=== PATIENT | male | born 1950 | race American Indian/Alaskan Native ===

== ENCOUNTER 2023-02-22 11:26 | Emergency (ER) | payer MEDICARE ==
[2023-02-22 11:44] VITALS: BP 122/67; O2SAT 93
[2023-02-22 12:20] LABS: BASOPHIL % 0.9 % (0.0-0.4); Basophil (Absolute #) 0.08 x10^3/uL (0-0.4); Eosinophil % 0.9 % (0.00-5.0); Eosinophil (Absolute #) 0.08 x10^3/uL (0-0.5); Hematocrit 44.2 % (42-50); Hemoglobin 14.5 g/dL (12.5-18.0); IMMATURE GRAN # 0.02 x10^3u/L (0.00-0.03); IMMATURE GRAN % 0.2 % (0.00-0.4); Lymphocyte (Absolute #) 1.34 x10^3/uL (1.0-4.6); Lymphocytes % 14.6 % (24.0-44.0); Mean Cell Volume 89.5 fL (78-100); Mean Corpuscular Hemoglobin 29.4 pg (26-32); Mean Corpuscular Hgb Concent. 32.8 g/dL (32-36); Mean Platelet Volume 10.2 fL (7.5-11.0); Monocyte (Absolute #) 0.47 x10^3/uL (0.0-1.3); Monocytes % 5.1 % (0.0-12.0); Neutrophil % 78.3 % (36.0-66.0); Platelet Count 331 x10^3/uL (150-450); Red Blood Count 4.94 x10^6/uL (4.1-5.6); Red Cell Distribution Width 13.2 % (11.5-14.0); White Blood Count 9.2 x10^3/uL (4.0-10.5)
[2023-02-22 12:37] LABS: ALBUMIN 4.3 g/dL (3.5-5.0); ALKALINE PHOSPHATASE 108 U/L (38-126); BLOOD UREA NITROGEN 31 mg/dL (9-20); CHLORIDE 102 mmol/L (98-107); Calcium 9.1 mg/dL (8.4-10.2); Carbon Dioxide 23 mmol/L (22-30); Creatinine 1 0.82 mg/dL (0.66-1.25); EST GLOMERULAR FILTRATION RATE > 60.0 ML/MIN; Glucose 237 mg/dL (74-106); Potassium 4.2 mmol/L (3.5-5.1); SGOT/AST 25 U/L (17-59); SGPT/ALT 27 U/L (0-50); SODIUM 137 mmol/L (137-145); Total Protein 8.1 g/dL (6.3-8.2)
--- NOTE | 2023-02-22 14:03 | ERPHSYRPT ---
- History of Present Illness Time Seen by Provider: 02/22/23 11:35 Source: patient, therapist rrt Patient Subjective Stated Complaint: Pt reports approx one week ago his big toe on left foot started getting red. Today the toe became really red and started bleeding from an unknown origin. Reports he wants to see if it is infected due to having another toe amputated previously and is diabetic. Triage Nursing Assessment: Pt alert and oriented x3. No apparent respiratory dis tress. Ambulated to ED cot with use of walker. Skin w/p/d. First digit on left toe is puple/red in color, swollen, and has hit of blood on the outer aspect of the nail. Physician History: 73-year-old male insulin-dependent diabetic with left big toe amputations in the past presented in the ER with 1 week history of gradually increasing swelling and redness starting right big toe and now to some extent on the dorsum of foot. This morning he woke up and noticed some blood at the base of big toe nail. Reports fairly controlled blood sugar. No fever or chills reported. Timing/Duration: week(s) (1), gradual onset, worse Quality: burning Severity: mild Location: feet Possible Causes: no cause identified Associated Symptoms: rash, swelling/mass/lumps Allergies/Adverse Reactions: No Known Drug Allergies Allergy (Unverified 02/22/23 11:31) Hx Tetanus, Diphtheria Vaccination/Date Given: Yes Hx Influenza Vaccination/Date Given: Yes Hx Pneumococcal Vaccination/Date Given: Yes Travel Risk - International Travel Have you traveled outside of the country in past 3 weeks: No - Coronavirus Screening Are you exhibiting any of the following symptoms?: No Close contact with a COVID-19 positive Pt in past 14-21 Days: No - Vaccine Status Have you recieved a Covid-19 vaccination: Yes 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 - Vaccination Dates Date of 2cond Vaccination (if applicable): unknown - Review of Systems Constitutional: No Symptoms Eyes: No Symptoms Ears, Nose, & Throat: No Symptoms Respiratory: No Symptoms Cardiac: No Symptoms Musculoskeletal: Joint Redness Skin: Skin Lesions Neurological: No Symptoms Immunological/Allergic: No Symptoms - Past Medical History Pertinent Past Medical History: Yes Neurological History: No Pertinent History ENT History: Cataracts Cardiac History: High Cholesterol, Hypertension Respiratory History: COPD Endocrine Medical History: Diabetes Type II Musculoskeletal History: No Pertinent History GI Medical History: No Pertinent History History: No Pertinent History Psycho-Social History: No Pertinent History Male Reproductive Disorders: No Pertinent History - Past Surgical History Past Surgical History: Yes Musculoskeletal: Amputation, Orthopedic Surgery Other Surgical History: second digit on left foot amputated, left knee, colon cancer surgery, right ear - Social History Smoking Status: Current every day smoker Exposure to second hand smoke: Yes Patient Lives Alone: Yes - Nursing Vital Signs Nursing Vital Signs: Initial Vital Signs Temperature 97.9 F 02/22/23 11:31 Pulse Rate 91 H 02/22/23 11:31 Respiratory Rate 16 02/22/23 11:31 Blood Pressure 122/67 02/22/23 11:31 O2 Sat by Pulse Oximetry 93 L 02/22/23 11:31 Pain Scale Pain Intensity 0 - Physical Exam General Appearance: no apparent distress, alert Eye Exam: PERRL/EOMI Ears, Nose, Throat Exam: normal ENT inspection Neck Exam: normal inspection, non-tender, supple, full range of motion Respiratory Exam: normal breath sounds, lungs clear Cardiovascular Exam: regular rate/rhythm, normal heart sounds Extremity Exam: normal range of motion, inflammation (Right big toe with some swelling on the dorsum of hand and streaking proximally. No increased t emperature. Minimal tenderness.), swelling Neurologic Exam: alert, oriented x 3, cooperative Skin Exam: normal color, rash SpO2 Interpretation: normal SpO2: 93 O2 Delivery: Room Air Ordered Tests: Medication Summary Discontinued Medications Generic Name Dose Route Start Last Admin Trade Name Freq PRN Reason Stop Dose Admin Clindamycin Phosphate 600 mg 02/22/23 14:57 02/22/23 15:09 Clindamycin Phosphate 600 Mg/4 Ml Vial IM 02/22/23 14:58 600 mg STAT ONE Administration Clindamycin Phosphate Confirm 02/22/23 15:07 Clindamycin Phosphate 600 Mg/4 Ml Vial Administered 02/22/23 15:08 Dose 600 mg .ROUTE .STK-MED ONE Clindamycin HCl/Dextrose 900 mg in 50 mls @ 100 mls/hr 02/22/23 14:30 02/22/23 14:59 Clindamycin-D5w 900 Mg/50 Ml IV 02/22/23 14:59 Not Given STAT STA Clindamycin HCl/Dextrose Confirm 02/22/23 15:06 Clindamycin-D5w 600 Mg/50 Ml Administered 02/22/23 15:07 Dose 600 mg in 50 mls @ ud IV .STK-MED ONE Lab/Rad Data: Laboratory Result Diagrams 02/22/23 12:07 02/22/23 12:07 Laboratory Results 02/22/23 02/22/23 02/22/23 Range/Units 12:07 12:07 12:07 WBC 9.2 (4.0-10.5) x10^3/uL RBC 4.94 (4.1-5.6) x10^6/uL Hgb 14.5 (12.5-18.0) g/dL Hct 44.2 (42-50) % MCV 89.5 (78-100) fL MCH 29.4 (26-32) pg MCHC 32.8 (32-36) g/dL RDW 13.2 (11.5-14.0) % Plt Count 331 (150-450) x10^3/uL MPV 10.2 (7.5-11.0) fL Gran % 78.3 H (36.0-66.0) % Immature Gran % (Auto) 0.2 (0.00-0.4) % Nucleat RBC Rel Count 0.0 (0.00-0.1) % Eos # (Auto) 0.08 (0-0.5) x10^3/uL Immature Gran # (Auto) 0.02 (0.00-0.03) x10^3u/L Absolute Lymphs (auto) 1.34 (1.0-4.6) x10^3/uL Absolute Monos (auto) 0.47 (0.0-1.3) x10^3/uL Absolute Nucleated RBC 0.00 (0.00-0.01) x10^3u/L Lymphocytes % 14.6 L (24.0-44.0) % Monocytes % 5.1 (0.0-12.0) % Eosinophils % 0.9 (0.00-5.0) % Basophils % 0.9 (0.0-0.4) % Absolute Granulocytes 7.20 H (1.4-6.9) x10^3/uL Basophils # 0.08 (0-0.4) x10^3/uL Sodium 137 (137-145) mmol/L Potassium 4.2 (3.5-5.1) mmol/L Chloride 102 (98-107) mmol/L Carbon Dioxide 23 (22-30) mmol/L Anion Gap 17.0 H (5-15) MEQ/L BUN 31 H (9-20) mg/dL Creatinine 0.82 (0.66-1.25) mg/dL Estimated GFR > 60.0 ML/MIN Glucose 237 H (74-106) mg/dL Lactic Acid 1.6 (0.4-2.0) Calcium 9.1 (8.4-10.2) mg/dL Total Bilirubin 0.50 (0.2-1.3) mg/dL AST 25 (17-59) U/L ALT 27 (0-50) U/L Alkaline Phosphatase 108 (38-126) U/L Serum Total Protein 8.1 (6.3-8.2) g/dL Albumin 4.3 (3.5-5.0) g/dL - Progress Progress: unchanged Progress Note: 02/22/23 15:28 73-year-old male insulin-dependent diabetic with left big toe amputations in the past presented in the ER with 1 week history of gradually increasing swelling and redness starting right big toe and now to some extent on the dorsum of foot. This morning he woke up and noticed some blood at the base of big toe nail. Reports fairly controlled blood sugar. No fever or chills reported. Differential includes osteomyelitis, diabetic ulcer, cellulitis, fracture dislocation. Patient is not in any pain, has normal white count, fairly unremarkable chemistry, x-rays reviewed by me negative for any osteomyelitic changes, official report is pending. I have discussed with Dr. Nelson, patient is given a dose of parenteral clindamycin and will continue with clindamycin orally to go home as it seems like he is having cellulitis. Patient would be evaluated by Dr. Nelson tomorrow morning. Discussed signs symptoms of worsening needing return to ER which he seems understanding. Stable for discharge. Counseled pt/family regarding: lab results, diagnosis, need for follow-up, rad results Medical Desision Making - Discussion of managment Care discussed with:: specialist (Meat Soaker) Reviewed:: Test results, Need for additional workup Agreed on:: Treatment plan, need for follow-up Will see patient: In office - Diagnostic Testing Diagnostic test were ordered, analyzed, and reviewed by me: Yes Radiological Interpretation: Interpreted by me, Reviewed by me - Risk of complications The pt has a mod risk of morbidity or mortality based on: Need for prescription drug management, Need for minor surgical intervention in patient with know risk factors - Departure Departure Disposition: Home Clinical Impression: Cellulitis of great toe, right Condition: Stable Critical Care Time: No Referrals: DOCTOR,NO FAMILY [Primary Care Provider] - Follow up/PCP as directed ALMA ROSA VAN DPM [ACTIVE STAFF] - Follow up/PCP as directed (Tomorrow at 10 AM for reevaluation. Walking to be seen.) Instructions: Diabetic Foot Ulcer (DC), Cellulitis (Skin Infection), Adult (DC) Additional Instructions: Take Tylenol as needed for pain, use soft diabetic shoes. Follow-up with podiatry for reevaluation tomorrow at [address] [facility]. Return to ER for excruciating pain, worsening swelling, fever chills etc. Prescriptions: clindamycin HCL [Clindamycin HCl] 300 mg PO QID 7 Days #28 cap
[2023-02-22] MEDS ORDERED: CLINDAMYCIN-D5W 900 MG/50 ML*** 900 MG/50 ML BAG IV STA (14:30)
[2023-02-22] MEDS ORDERED: Cleocin Phosphate IV 600 MG/4 ML IM ONE (14:57)
[2023-02-22] MEDS ORDERED: CLINDAMYCIN-D5W 600 MG/50 ML*** 0 MG/0 ML BAG IV ONE (15:06)
[2023-02-22] MEDS ORDERED: Cleocin Phosphate IV 600 MG/4 ML ONE (15:07)
[2023-02-22 15:37] VITALS: PULSE 97
--- NOTE | 2023-02-22 19:43 | XRAY ---
Indication: Diabetic infection. Comparison: None 3 nonweightbearing views right foot demonstrates osteopenia, tiny plantar heel spur, and mild scattered vascular calcifications. No other bony, articular, or soft tissue abnormalities.
== END 2023-02-22 15:39 | disposition home or self-care (01) ==
LOC: ED 11:26
DX: L03.031 Cellulitis of right toe (principal); E11.9 Type 2 diabetes mellitus without complications; E78.5 Hyperlipidemia, unspecified; I10 Essential (primary) hypertension; Z79.4 Long term (current) use of insulin; Z72.0 Tobacco use
CPT/HCPCS: 36415; 73630; 80053; 83605; 85025; 87040; 96372; 99283

== ENCOUNTER 2023-03-23 10:37 | Inpatient (IN) | payer MEDICARE ==
[~2023-03-23 10:37] MED LIST: Marcaine Mpf 0.5% Vial 30 Ml ONE; XYLOCAINE 1% HCL 20 ML MDV ONE
[2023-03-23] MEDS ORDERED: Lactated Ringers 1,000 ML IV ONE (11:41)
[2023-03-23] MEDS ORDERED: Xylocaine 1% Vial 30 ML PF IJ ONE (12:04)
[2023-03-23] MEDS ORDERED: Marcaine Mpf 0.5% Vial 30 Ml ONE (12:04)
[2023-03-23 12:32] LABS: Hematocrit 42.5 % (42-50); Hemoglobin 14.3 g/dL (12.5-18.0); Mean Cell Volume 86.7 fL (78-100); Mean Corpuscular Hemoglobin 29.2 pg (26-32); Mean Corpuscular Hgb Concent. 33.6 g/dL (32-36); Mean Platelet Volume 10.5 fL (7.5-11.0); Platelet Count 341 x10^3/uL (150-450); Red Cell Distribution Width 13.4 % (11.5-14.0); White Blood Count 9.2 x10^3/uL (4.0-10.5)
[2023-03-23 12:49] LABS: ANION GAP 16.8 MEQ/L (5-15); BLOOD UREA NITROGEN 32 mg/dL (9-20); CHLORIDE 100 mmol/L (98-107); Calcium 9.4 mg/dL (8.4-10.2); Carbon Dioxide 27 mmol/L (22-30); EST GLOMERULAR FILTRATION RATE > 60.0 ML/MIN; Glucose 253 mg/dL (74-106); PREALBUMIN 18.22 mg/dL (17.6-36.0); Potassium 4.7 mmol/L (3.5-5.1); SODIUM 139 mmol/L (137-145)
--- NOTE | 2023-03-23 13:31 | XRAY ---
Indication: Right foot hallux amputation. Intraoperative fluoroscopy provided for 4 seconds. 3 digital spot images submitted for interpretation demonstrates total amputation 1st toe. Correlate with intraoperative findings/report.
[2023-03-23] MEDS ORDERED: Zofran 4 MG/2 ML VIAL IV PRN (14:59)
[2023-03-23] MEDS ORDERED: Nicoderm CQ 21 MG TOP SCH (15:45)
[2023-03-23] MEDS ORDERED: MEDICATION INTERVENTION MC SCH (16:00)
[2023-03-23] MEDS ORDERED: NON-FORMULARY ITEM (Insulin Aspart [Novolog] 100 UNIT/ML Vial) SQ SCH (17:00)
[2023-03-23] MEDS: HUMALOG SQ SCH (17:09)
[2023-03-23] MEDS: Nicoderm CQ 21 MG TOP SCH (17:10)
[2023-03-23] MEDS ORDERED: PIPERACILLIN/TAZOBACTAM IV ONE (18:45)
[2023-03-23] MEDS ORDERED: Sodium Chloride 100ML MINI-BAG PLUS 100 ML IV ONE (18:47)
[2023-03-23] MEDS: PIPERACILLIN/TAZOBACTAM 3.375 GM in Sodium Chloride 100ML MINI-BAG PLUS 100 ML IV SCH ×2 (18:49→23:59)
[2023-03-23] MEDS: VENTOLIN COMMON CANISTER IH SCH (19:35)
[2023-03-23] MEDS: Advair Hfa 115/21 Common canister IH SCH (19:35)
[2023-03-23] MEDS: Lantus Insulin SQ SCH (21:26)
[2023-03-23] MEDS: HEPARIN 5000 UNITS/0.5 ML (HIGH RISK MED) SQ SCH (21:27)
[2023-03-23] MEDS: ZOCOR 20MG PO SCH (21:27)
[2023-03-23] MEDS ORDERED: NON-FORMULARY ITEM (Atorvastatin Calcium [Atorvastatin Calcium] 20 MG Tablet) PO SCH (22:00)
--- NOTE | 2023-03-23 23:16 | PCM.HP ---
History of Present Illness - Chief Complaint Chief Complaint: acute osteomyelitis of foot Date: 03/23/23 History of Present Illness: is a 73 year old male with h/o DM2, who presents from podiatry clinic with acute osteomyelitis of the foot. Patient initially presented to to ED last month with one week of redness on first right toe. He has a prior history of left toe amputations due to wounds/infections. Has been following with podiatry Dr. Nelson, on PO antibiotics, but infection has not improved. Had normal right EARLENE. He had an MRI of the foot last week that showed cellulitis with likely distal phalanx and proximal phalax great toe acute osteomyelitis. He has been trying to get in for amputation for the past week, and was approved by insurance over the weekend. He completed oral antibiotics previously, but he does not know when. Patient seen after taken to OR by Dr. Nelson for amputation. No pain currently. Denies fevers, chest pain, dyspnea, nausea, vomiting, or dysuria. - Review of Systems Skin: Cellulitis All Other Systems: Reviewed and Negative Medications & Allergies Home Medications: Home Medication List Albuterol 8 gm Mdi Hfa [Ventolin Hfa MDI] 8 gm IH DAILY 03/18/23 [History Confirmed 03/23/23] Albuterol 8 gm Mdi Hfa [Ventolin Hfa MDI] 8 gm IH DAILY 03/18/23 [History Confirmed 03/23/23] Amlodipine Besylate 5 mg [Norvasc 5 mg] 10 mg PO DAILY 03/18/23 [History Confirmed 03/23/23] Aspirin 81 mg PO DAILY 03/18/23 [History Confirmed 03/23/23] Atorvastatin Calcium 20 mg PO HS 03/18/23 [History Confirmed 03/23/23] Cholecalciferol (Vitamin D3) [Vitamin D] 50,000 unit PO DAILY 03/18/23 [History Confirmed 03/23/23] Empagliflozin [Jardiance] 25 mg PO DAILY 03/18/23 [History Confirmed 03/23/23] Furosemide [Lasix] 10 mg PO DAILY 03/18/23 [History Confirmed 03/23/23] Insulin Aspart [Novolog] 6 unit SQ TIDWMEALS 03/18/23 [History Confirmed 03/23/23] Insulin Glargine,Hum.rec.anlog [Lantus] 18 unit SQ HS 03/18/23 [History Confirmed 03/23/23] Metoprolol Succinate [Toprol Xl] 12.5 mg PO DAILY 03/18/23 [History Confirmed 03/23/23] Tiotropium [place] [Spiriva] 18 mcg IH DAILY 03/18/23 [History Confirmed ] Allergies/Adverse Reactions: Allergies Allergy/AdvReac Type Severity Reaction Status Date / Time No Known Drug Allergies Allergy Unverified 02/22/23 11:31 - Past Medical History Past Medical History: Yes Neurological History: No Pertinent History ENT History: Cataracts Cardiac History: High Cholesterol, Hypertension Respiratory History: COPD Endocrine Medical History: Diabetes Type II Musculoskelatal History: No Pertinent History GI Medical History: No Pertinent History History: No Pertinent History Pyscho-Social History: No Pertinent History Male Reproductive Disorders: No Pertinent History - Past Surgical History Past Surgical History: Yes Neuro Surgical History: No Pertinent History Cardiac History: No Pertinent History Respiratory Surgery: No Pertinent History GI Surgical History: No Pertinent History Genitourinary Surgical Hx: No Pertinent History Musculskeletal Surgical Hx: Amputation, Orthopedic Surgery Male Surgical History: No Pertinent History Other Surgical History: second digit on left foot amputated, left knee, colon cancer surgery, right ear - Social History Smoking Status: Current every day smoker How long have you smoked: 63 Exposure to second hand smoke: Yes Alcohol: Daily Drug Use: none Significant Family History: diabetes - Physical Exam Vital Signs: Vital Signs - 24 hr Temp Pulse Resp BP Pulse Ox 03/23/23 20:01 98.2 F 80 17 150/67 91 L 03/23/23 19:41 82 16 91 L 03/23/23 16:57 80 16 92 L 03/23/23 16:38 97.9 F 79 16 142/65 91 L 03/23/23 13:36 97.8 F 84 16 167/77 92 L 03/23/23 12:16 98.0 F 93 H 16 148/67 92 L 03/23/23 11:22 98.0 F 93 H 16 148/67 92 L 03/23/23 11:08 98.0 F 93 H 16 148/67 92 L 03/23/23 10:55 98.0 F 93 H 16 148/67 92 L General Appearance: no apparent distress, alert Neurologic Exam: alert, oriented x 3, cooperative, normal mood/affect, sensation nml, No motor deficits Respiratory Exam: normal breath sounds, lungs clear, No respiratory distress Cardiovascular Exam: regular rate/rhythm, normal heart sounds, normal peripheral pulses Gastrointestinal/Abdomen Exam: soft, normal bowel sounds, No tenderness Skin Exam: other (right foot in surgical dressing; good cap refill proximally) Wound Assessment: Skin/Wound Assessment Wound/Incision Assessment Start: 03/23/23 11:03 Text: Status: Active Freq: Q4H Protocol: Document 03/23/23 20:00 CRYSTAL (Rec: 03/23/23 20:30 CRYSTAL [id number]) Wound/Incision Assessment Right Toe Wound Assessment Shift Assessment Wound Type Incision Wound Stage Non Pressure Wound Dressing Status Dry & Intact Drainage Amount Minimal Drainage Description Sanguineous Drainage Odor None/Absent Comment RIGHT GREAT TOE AMPUTAITON, DRESSING IS INTACT, SOME BLOODY DRAINAGE NOTED Results - Labs Lab/Micro Results: Lab Results-Last 24 Hours 03/23/23 03/23/23 Range/Units 11:44 11:44 WBC 9.2 (4.0-10.5) x10^3/uL RBC 4.90 (4.1-5.6) x10^6/uL Hgb 14.3 (12.5-18.0) g/dL Hct 42.5 (42-50) % MCV 86.7 (78-100) fL MCH 29.2 (26-32) pg MCHC 33.6 (32-36) g/dL RDW 13.4 (11.5-14.0) % Plt Count 341 (150-450) x10^3/uL MPV 10.5 (7.5-11.0) fL Sodium 139 (137-145) mmol/L Potassium 4.7 (3.5-5.1) mmol/L Chloride 100 (98-107) mmol/L Carbon Dioxide 27 (22-30) mmol/L Anion Gap 16.8 H (5-15) MEQ/L BUN 32 H (9-20) mg/dL Creatinine 0.80 (0.66-1.25) mg/dL Estimated GFR > 60.0 ML/MIN Glucose 253 H (74-106) mg/dL Calcium 9.4 (8.4-10.2) mg/dL Prealbumin 18.22 (17.6-36.0) mg/dL Accuchecks Date 03/23/23 Time 16:37 - Radiology Impressions Radiology Exams & Impressions: Radiology Procedures Category Date Time Status FLUOROSCOPY UP TO 1 HR Routine Exams 03/23/23 11:42 Taken FOOT (MINIMUM 3 VIEWS) Routine Exams 03/23/23 11:42 Completed - Other Procedures and Tests Respiratory Therapy 03/24/23 07:00 Respiratory Therapy Assessment DAILY Assessment/Plan (1) Acute osteomyelitis of toe of right foot Current Visit: Yes Status: Acute Assessment & Plan: Failed outpatient treatment with PO antibiotics, now showing acute osteo on MRI. S/p amputation of 1st great toe by Dr. Nelson - post-op care of wound per Dr. Nelson - start Zosyn IV - follow up operative cultures/pathology - if negative margins, can plan for 1-3 weeks of antibiotics Code(s): M86.171 - OTHER ACUTE OSTEOMYELITIS, RIGHT ANKLE AND FOOT (2) Type 2 diabetes mellitus Current Visit: Yes Status: Acute Qualifiers: Diabetes mellitus complication status: with skin complications Diabetes mellitus complication detail: with foot ulcer Assessment & Plan: HbA1c 8.4 in December. Still poorly controlled. - continue home Lantus 18 HS, Lispro 6 qAC - cover with sliding scale Lispro - continuehome Jardiance 25 daily (3) Hypertension Current Visit: Yes Status: Acute Qualifiers: Hypertension type: primary hypertension Qualified Code(s): I10 - Essential (primary) hypertension Assessment & Plan: BP controlled. - continue Laix, Norvasc 10, Toprol XL 12.5 Code(s): I10 - ESSENTIAL (PRIMARY) HYPERTENSION (4) Nicotine dependence Current Visit: Yes Status: Acute Assessment & Plan: - add nicotine patch Code(s): F17.200 - NICOTINE DEPENDENCE, UNSPECIFIED, UNCOMPLICATED Telemedicine Encounter - Telemedicine Encounter Telemedicine Encounter: The entirety of this encounter was performed via Telemedicine"
[2023-03-24 05:08] LABS: Hematocrit 42.6 % (42-50); Mean Cell Volume 86.8 fL (78-100); Mean Corpuscular Hemoglobin 28.5 pg (26-32); Mean Corpuscular Hgb Concent. 32.9 g/dL (32-36); Mean Platelet Volume 10.5 fL (7.5-11.0); Platelet Count 304 x10^3/uL (150-450); Red Blood Count 4.91 x10^6/uL (4.1-5.6); Red Cell Distribution Width 13.5 % (11.5-14.0); White Blood Count 6.3 x10^3/uL (4.0-10.5)
[2023-03-24 05:19] LABS: ANION GAP 11.1 MEQ/L (5-15); BLOOD UREA NITROGEN 25 mg/dL (9-20); CHLORIDE 104 mmol/L (98-107); Calcium 8.7 mg/dL (8.4-10.2); Carbon Dioxide 29 mmol/L (22-30); Creatinine 1 0.62 mg/dL (0.66-1.25); EST GLOMERULAR FILTRATION RATE > 60.0 ML/MIN; Glucose 104 mg/dL (74-106); Potassium 3.9 mmol/L (3.5-5.1); SODIUM 140 mmol/L (137-145)
[2023-03-24] MEDS: PIPERACILLIN/TAZOBACTAM 3.375 GM in Sodium Chloride 100ML MINI-BAG PLUS 100 ML IV SCH ×4 (05:36→23:05)
[2023-03-24] MEDS ORDERED: Spiriva 18 Mcg/Cap Inhaler IH ONE (06:51)
[2023-03-24] MEDS: VENTOLIN COMMON CANISTER IH SCH ×4 (07:37→19:23)
[2023-03-24] MEDS: Advair Hfa 115/21 Common canister IH SCH ×2 (07:41→19:22)
[2023-03-24] MEDS: Spiriva 18 Mcg/Cap Inhaler IH SCH (07:41)
[2023-03-24] MEDS: HUMALOG SQ SCH ×3 (08:06→17:41)
[2023-03-24] MEDS ORDERED: Toprol-Xl 25MG Tablets PO SCH (10:00)
[2023-03-24] MEDS ORDERED: NON-FORMULARY ITEM (Cholecalciferol (Vitamin D3) [Vitamin D3] 1,250 MCG Capsule) PO SCH (10:00)
[2023-03-24] MEDS ORDERED: BABY ASPIRIN 81 MG CHEW PO SCH (10:00)
[2023-03-24] MEDS ORDERED: MEDICATION INTERVENTION PO SCH (10:00)
[2023-03-24] MEDS: LASIX 20 MG PO SCH (10:30)
[2023-03-24] MEDS: ECOTRIN 81 MG PO SCH (10:31)
[2023-03-24] MEDS: Toprol-Xl 25MG Tablets PO SCH (10:31)
[2023-03-24] MEDS: NORVASC 5 MG PO SCH (10:31)
[2023-03-24] MEDS: HEPARIN 5000 UNITS/0.5 ML (HIGH RISK MED) SQ SCH ×2 (10:31→23:05)
[2023-03-24] MEDS: JARDIANCE PO SCH (10:32)
--- NOTE | 2023-03-24 10:37 | XRAY ---
4 seconds of fluoroscopy was used in surgery for a right foot hallux amputation.
--- NOTE | 2023-03-24 11:40 | OP ---
SURGERY DATE/TIME: 03/23/2023 1249 PREOPERATIVE DIAGNOSES: 1) Osteomyelitis right hallux. 2) Diabetic foot ulcer. 3) Diabetic peripheral neuropathy. 4) Right foot pain. POSTOPERATIVE DIAGNOSES: 1) Osteomyelitis right hallux. 2) Diabetic foot ulcer. 3) Diabetic peripheral neuropathy. 4) Right foot pain. PROCEDURES: Open amputation right hallux at the level of the metatarsophalangeal joint. SURGEON: Omar Loco DPM. GROCERY SPECIALIST: None. ANESTHESIA: Local. HEMOSTASIS: Pressure dressing. ESTIMATED BLOOD LOSS: Less than 10 cc. MATERIALS: 3-0 Nylon, 0.25 inch Iodoform packing. INJECTABLES: 30 cc of 1:1 mixture of 1% lidocaine plain and 0.5% bupivacaine plain injected in a Pan block-type fashion to the right lower extremity. INDICATION FOR SURGERY: William is a very pleasant 73-year-old male who is known to my service for an infected toenail that started approximately six weeks ago. The patient had a concern because he has had an amputation to his second digit on his left foot because of osteomyelitis in the past. Secondary to his peripheral neuropathy we proceeded with removal of the hallux toenail at that time which showed minor signs of improvement over the course of the first week however clinical worsening of the wound. Cultures were taken demonstrating bacterial growth. After the four week aziza he demonstrated some indications of exposure of the bone from the soft tissue with deterioration of the wound. This led us to proceed with MRI which demonstrated some osteomyelitis of the distal and to a lesser extent proximal phalanx. At this time the patient understands all risks, benefits and complications of surgical intervention including but not limited to infection, hematoma, seroma, possibility of delayed wound healing, nonwound healing, possibility of need for repeat intervention as this is a staged procedure. No guarantees were provided as to the outcome for surgical intervention at this time. Plenty of time was allowed for the patient to ask questions which were answered to her apparent satisfaction. It is with that we decided to proceed. DESCRIPTION OF PROCEDURE AND FINDINGS: The patient was brought into the OR and placed on the OR table in the supine position. At this time the right foot was prepped and draped in the typical sterile fashion and lowered onto the surgical field. An injection consisting of 30 cc of 1:1 mixture of 1% lidocaine plain and 0.5% bupivacaine plain was injected in a Pan block-type fashion. Following this, a medial racket incision was made utilizing a 10 blade over the hallux circumferentially saving as much skin as possible. From that standpoint, a disarticulation took place utilizing a 15 blade at the deep level. 3,000 ml of sterile saline were utilized to flush the surgical site until no longer any soft tissue purulence was encountered. From that standpoint gloves were changed and a Pan stand was brought out. A new 15 blade and pickup were utilized to remove the flexor tendon as well as soft tissue of the flexor apparatus. Following this, 3-0 Nylon was utilized in a trauma stitch-type fashion to the right great toe leaving the distal tip open for 0.25 inch Iodoform packing which was soaked in iodine. From that standpoint a dressing consisting of iodine, Adaptic, 4x4, Kerlix, ABD and VICTOR MANUEL were applied to the right foot with minimal compression. The patient was then returned to his room with vital signs stable and vascular status intact. The patient handled the anesthesia as well as the procedure without significant complication. Postoperative orders as indicated in the patient's inpatient chart.
[2023-03-24] MEDS: HUMALOG SQ PRN (12:06)
--- NOTE | 2023-03-24 13:10 | PCM.NOTE ---
Date and Time: 03/24/23 1301 Subjective Assessment: No acute events overnight. Has some foot pain, but doesn't want to take any pain meds. Tried to put his foot down last night and noted some blood running down his leg, but has not put any weight since then, and has not seen any other drainage. States Dr. St planning to go back to OR to close wound. He denies fevers, chills, malaise, or anorexia. - Review of Systems All Other Systems: Reviewed and Negative Objective Exam General Appearance: no apparent distress Neurologic Exam: alert, oriented x 3, normal mood/affect Skin Exam: other (dressing to R foot wound clean/dry/intact) Wound Assessment: Skin/Wound Assessment Wound/Incision Assessment Start: 03/23/23 11:03 Text: Status: Active Freq: Q6H Protocol: Document 03/24/23 08:00 [facility] (Rec: 03/24/23 10:09 [facility] [id number]) Co-Sign 03/24/23 08:00 TJ Wound/Incision Assessment Right Toe Wound Assessment Shift Assessment Wound Type Incision Wound Stage Non Pressure Wound Dressing Status Dry & Intact Drainage Amount None Comment DRESSINGS CLEAN, DRY, AND INTACT. PER DR. ST DRESSINGS NOT TO BE REMOVED, DRESSING CARE MANAGED AND CHANGED BY DR. ST ONLY. Wound Photo Photo Taken No Respiratory Exam: normal breath sounds, No accessory muscle use Cardiovascular Exam: regular rate/rhythm, No murmur Gastrointestinal/Abdomen Exam: soft, No tenderness, No distention OBJECTIVE DATA Vital Signs: Vital Signs - 24 hr Temp Pulse Resp BP Pulse Ox 03/24/23 12:00 18 03/24/23 11:43 98.7 F 76 17 140/70 93 L 03/24/23 11:18 86 16 95 03/24/23 09:00 97.5 F 87 17 117/85 95 03/24/23 08:00 17 03/24/23 07:00 75 16 94 L 03/24/23 04:23 97.7 F 75 16 140/73 94 L 03/24/23 00:14 98.2 F 81 16 153/71 90 L 03/23/23 20:01 98.2 F 80 17 150/67 91 L 03/23/23 19:41 82 16 91 L 03/23/23 16:57 80 16 92 L 03/23/23 16:38 97.9 F 79 16 142/65 91 L 03/23/23 13:36 97.8 F 84 16 167/77 92 L Pain Assessment - Last Documented Pain Intensity 0 Intake and Output: Intake & Output 03/22/23 03/23/23 03/24/23 03/25/23 11:59 11:59 11:59 11:59 Intake Total 720 Output Total 2150 Balance -1430 Weight 78.9 kg 78.9 kg Lab Results: Lab Results-Last 24 Hours 03/24/23 03/24/23 Range/Units 04:15 04:15 WBC 6.3 (4.0-10.5) x10^3/uL RBC 4.91 (4.1-5.6) x10^6/uL Hgb 14.0 (12.5-18.0) g/dL Hct 42.6 (42-50) % MCV 86.8 (78-100) fL MCH 28.5 (26-32) pg MCHC 32.9 (32-36) g/dL RDW 13.5 (11.5-14.0) % Plt Count 304 (150-450) x10^3/uL MPV 10.5 (7.5-11.0) fL Sodium 140 (137-145) mmol/L Potassium 3.9 (3.5-5.1) mmol/L Chloride 104 (98-107) mmol/L Carbon Dioxide 29 (22-30) mmol/L Anion Gap 11.1 (5-15) MEQ/L BUN 25 H (9-20) mg/dL Creatinine 0.62 L (0.66-1.25) mg/dL Estimated GFR > 60.0 ML/MIN Glucose 104 (74-106) mg/dL Calcium 8.7 (8.4-10.2) mg/dL Radiology Exams: Radiology Procedures Category Date Time Status FLUOROSCOPY UP TO 1 HR Routine Exams 03/23/23 11:42 Completed FOOT (MINIMUM 3 VIEWS) Routine Exams 03/23/23 11:42 Completed Assessment/Plan (1) Acute osteomyelitis of toe of right foot Current Visit: Yes Status: Acute Assessment & Plan: 3 year old male with h/o DM2 and recurrent diabetic foot infections/amputations, here with right first toe acute osteomyelitis, now s/p amputation. ## Acute osteomyelitis of right 1st toe - See in distal phalax, and somewhat in proximal phalanx, on MRI last week. S/p ray amputation by Dr. St on 03/23 (POD #1). - continue Zosyn, day 2 - follow up operative cultures/pathology - if negative margins, will plan for 1-3 weeks of antibiotics - return to OR for closure, likely on ; per Dr. St ## DM2 - poorly controlled, with HbA1c 8.4 in December. But glucose levels contro lled here. - continue home Lantus 18 HS, Lispro 6 qAC - cover with sliding scale Lispro - continuehome Jardiance 25 daily ## Hypertension - BP controlled. - continue Lasix, Norvasc 10, Toprol XL 12.5 ## Nicotine dependence - continue nicotine patch Code status: Full code Prophylaxis: holding lovenox due to OR plans Entirety of encounter took place via telemedicine, to which patient consented. Code(s): M86.171 - OTHER ACUTE OSTEOMYELITIS, RIGHT ANKLE AND FOOT (2) Type 2 diabetes mellitus Current Visit: Yes Status: Acute Qualifiers: Diabetes mellitus complication status: with skin complications Diabetes mellitus complication detail: with foot ulcer (3) Hypertension Current Visit: Yes Status: Acute Qualifiers: Hypertension type: primary hypertension Qualified Code(s): I10 - Essential (primary) hypertension Code(s): I10 - ESSENTIAL (PRIMARY) HYPERTENSION (4) Nicotine dependence Current Visit: Yes Status: Acute Code(s): F17.200 - NICOTINE DEPENDENCE, UNSPECIFIED, UNCOMPLICATED
--- NOTE | 2023-03-24 13:37 | PCM.NOTE ---
Date and Time: 03/24/23 1326 Subjective Assessment: POD #1 s/p open hallux amputation to the right. No complaints of pain. No constitutional symptoms. Denies chest pain, Calf pain, SOB. Physical Exam - General General Appearance: no apparent distress - Neuro Neurologic: Epicritic and protopathic (Absent) - Vascular Peripheral Pulses: Posterior tibialis: 1+, Dorsalis-Pedis: 2+ Capillary Refill Time: < 3 seconds Hair Growth: Symmetrical and Bilateral Varicosities: Negtive Edema: Pitting Edema Degree: 1+ Skin: Supple, not atrophic - Narrative Narrative Physical Exam: Podiatry Physical Exam OBJECTIVE DATA Vital Signs: Vital Signs - 24 hr Temp Pulse Resp BP Pulse Ox 03/24/23 12:00 18 03/24/23 11:43 98.7 F 76 17 140/70 93 L 03/24/23 11:18 86 16 95 03/24/23 09:00 97.5 F 87 17 117/85 95 03/24/23 08:00 17 03/24/23 07:00 75 16 94 L 03/24/23 04:23 97.7 F 75 16 140/73 94 L 03/24/23 00:14 98.2 F 81 16 153/71 90 L 03/23/23 20:01 98.2 F 80 17 150/67 91 L 03/23/23 19:41 82 16 91 L 03/23/23 16:57 80 16 92 L 03/23/23 16:38 97.9 F 79 16 142/65 91 L 03/23/23 13:36 97.8 F 84 16 167/77 92 L Pain Assessment - Last Documented Pain Intensity 0 Intake and Output: Intake & Output 03/22/23 03/23/23 03/24/23 03/25/23 11:59 11:59 11:59 11:59 Intake Total 720 240 Output Total 2150 475 Balance -1430 -235 Weight 78.9 kg 78.9 kg Lab Results: Lab Results-Last 24 Hours 03/24/23 03/24/23 Range/Units 04:15 04:15 WBC 6.3 (4.0-10.5) x10^3/uL RBC 4.91 (4.1-5.6) x10^6/uL Hgb 14.0 (12.5-18.0) g/dL Hct 42.6 (42-50) % MCV 86.8 (78-100) fL MCH 28.5 (26-32) pg MCHC 32.9 (32-36) g/dL RDW 13.5 (11.5-14.0) % Plt Count 304 (150-450) x10^3/uL MPV 10.5 (7.5-11.0) fL Sodium 140 (137-145) mmol/L Potassium 3.9 (3.5-5.1) mmol/L Chloride 104 (98-107) mmol/L Carbon Dioxide 29 (22-30) mmol/L Anion Gap 11.1 (5-15) MEQ/L BUN 25 H (9-20) mg/dL Creatinine 0.62 L (0.66-1.25) mg/dL Estimated GFR > 60.0 ML/MIN Glucose 104 (74-106) mg/dL Calcium 8.7 (8.4-10.2) mg/dL Radiology Exams: Radiology Procedures Category Date Time Status FLUOROSCOPY UP TO 1 HR Routine Exams 03/23/23 11:42 Completed FOOT (MINIMUM 3 VIEWS) Routine Exams 03/23/23 11:42 Completed Assessment/Plan (1) Peripheral neuropathy Current Visit: Yes Status: Acute Code(s): G62.9 - POLYNEUROPATHY, UNSPECIFIED (2) Cellulitis of great toe, right Current Visit: No Status: Acute Code(s): L03.031 - CELLULITIS OF RIGHT TOE (3) Acute osteomyelitis of toe of right foot Current Visit: Yes Status: Acute Assessment & Plan: POD #1 s/p Hallux open amputation Patient progressing without complication at this time Radiographs demonstrating interval amputation of hallux to level of MPJ. No soft tissue emphysema. Packing pulled and wound assessed demonstrating no clinical appearance of residual infection at this time. Some minimal necrosis of wound margins. Repacked using 1/4 inch iodoform packing, Dressing consisting of Iodine adpatic 4x4 kerlik abd and VICTOR MANUEL with minimal to moderate compression Continue IV abx at this time. Soft tissue and osseous cultures obtained. Awaiting results. Vanco/zosyn combo for now. Will likely d/c on Oral abx. No PICC line placement recommended. Pain control DVT prophylaxis Plan for D/c to home with home health care for dressing changes 2x a week with office visits with us 1x weekly Back to OR Thursday for DPC. Ok for D/c once closure preformed. Code(s): M86.171 - OTHER ACUTE OSTEOMYELITIS, RIGHT ANKLE AND FOOT (4) Type 2 diabetes mellitus Current Visit: Yes Status: Acute Qualifiers: Diabetes mellitus complication status: with skin complications Diabetes mellitus complication detail: with foot ulcer (5) Nicotine dependence Current Visit: Yes Status: Acute Code(s): F17.200 - NICOTINE DEPENDENCE, UNSPECIFIED, UNCOMPLICATED
[2023-03-24] MEDS ORDERED: Nicoderm CQ 21 MG TOP SCH (16:00)
[2023-03-24] MEDS: Nicoderm CQ 21 MG TOP SCH (17:42)
[2023-03-24] MEDS: ZOCOR 20MG PO SCH (23:05)
[2023-03-24] MEDS: Lantus Insulin SQ SCH (23:06)
[2023-03-25] MEDS: NORCO 5/325 MG PO PRN ×4 (02:23→21:32)
[2023-03-25] MEDS: TYLENOL 325 MG PO PRN ×2 (03:12→18:45)
[2023-03-25] MEDS: PIPERACILLIN/TAZOBACTAM 3.375 GM in Sodium Chloride 100ML MINI-BAG PLUS 100 ML IV SCH ×3 (05:40→18:45)
[2023-03-25] MEDS: VENTOLIN COMMON CANISTER IH SCH ×4 (05:46→19:05)
[2023-03-25] MEDS: Advair Hfa 115/21 Common canister IH SCH ×2 (05:47→19:06)
[2023-03-25] MEDS: Spiriva 18 Mcg/Cap Inhaler IH SCH (05:47)
[2023-03-25] MEDS: HUMALOG SQ SCH ×3 (08:17→16:45)
[2023-03-25] MEDS: Toprol-Xl 25MG Tablets PO SCH (09:43)
[2023-03-25] MEDS: NORVASC 5 MG PO SCH (09:44)
[2023-03-25] MEDS: JARDIANCE PO SCH (09:44)
[2023-03-25] MEDS: ECOTRIN 81 MG PO SCH (09:44)
[2023-03-25] MEDS: LASIX 20 MG PO SCH (09:44)
[2023-03-25] MEDS: HEPARIN 5000 UNITS/0.5 ML (HIGH RISK MED) SQ SCH ×2 (09:44→21:32)
[2023-03-25] MEDS: Nicoderm CQ 21 MG TOP SCH (16:44)
--- NOTE | 2023-03-25 17:01 | PCM.NOTE ---
Date and Time: 03/25/23 1700 Subjective Assessment: POD # 2. Doing well. Increased Pain however dopplerable pulses at bedside. Physical Exam - Narrative Narrative Physical Exam: Podiatry Physical Exam OBJECTIVE DATA Vital Signs: Vital Signs - 24 hr Temp Pulse Resp BP Pulse Ox 03/25/23 16:22 74 18 92 L 03/25/23 16:00 98.3 F 83 17 145/74 92 L 03/25/23 13:09 72 18 90 L 03/25/23 12:00 18 03/25/23 11:56 98.2 F 76 16 141/79 93 L 03/25/23 08:00 18 03/25/23 07:16 97.2 F 81 16 133/63 92 L 03/25/23 05:47 78 20 95 03/25/23 04:00 97.5 F 76 20 138/72 92 L 03/25/23 00:00 20 03/24/23 23:59 97.8 F 77 20 141/65 96 03/24/23 20:00 99.3 F 77 20 162/77 93 L 03/24/23 19:23 62 20 97 Pain Assessment - Last Documented Pain Intensity 8 Pain Scale Used 0-10 Pain Scale Intake and Output: Intake & Output 03/23/23 03/24/23 03/25/23 03/26/23 11:59 11:59 11:59 11:59 Intake Total 720 1720 240 Output Total 2150 2075 300 Balance -1430 -355 -60 Weight 78.9 kg 78.9 kg 78.9 kg Multi-Disciplinary Progress Notes: Multi-Disciplinary Progress Notes 03/25/23 13:41 Case Management Note by Liz Garcia [facility] HAS BEEN SET UP. THEY WILL NEED NOTIFIED AT TIME OF DC AT [phone]. THEY WILL NEED FAXED THE DC INSTRUCTIONS, DC MED LIST AND DC SUMMARY ( IF AVAILABLE) TO [phone] Initialized on 03/25/23 13:41 - END OF NOTE 03/25/23 13:27 Case Management Note by Liz Garcia Addendum entered by Liz Garcia 03/25/23 13:41: NOTE FOR 1230 Original Note: S/W JEANINE- DRESSING CHANGE ORDERS CLARIFIED. DRESSING TO REMAIN IN PLACE UNTIL FOLLOW UP THEN PODIATRY WILL SEND ORDERS TO [facility]. WILL SEND UPDATED ORDER TO FR[facility] Initialized on 03/25/23 13:27 - END OF NOTE 03/25/23 13:23 Case Management Note by Liz Garcia Addendum entered by Liz Garcia 03/25/23 13:41: UPDATED ORDERS SENT AT THIS TIME Original Note: S/W PATIENT ABOUT SETTING UP HHC FOR DRESSING CHANGES. PATIENT AGREEABLE BUT ONLY IF IT DOESN'T COST HIM ANYTHING. PATIENT REPORTS THIS IS THE ONLY WAY HE WILL AGREE TO ANYTHING. I TRIED TO DISCUSS OPTIONS IF THERE WOULD BE A COPAY. PATIENT REPORTS HIS SISTER COULD DO HIS DRESSING CHANGES. I STATED THIS OPTION WOULD NEED TO BE DISCUSSED WITH DR. ST- PATIENT REPLIED "I DON'T HAVE TO TALK TO DR. ST ABOUT ANYTHING" REFERRAL SENT TO FRANC[facility]- S/W STEFANIE- SHE REPORTS THEY ARE IN NETWORK WITH INSURANCE. THEY HAVE ACCEPTED AND REPORT THERE WILL BE $0 COPAY FOR PATIENT. THEY WERE UPDATED THAT NEW ORDERS WILL BE SENT PATIENTS DRESSING NEEDS TO BE LEFT INTACT UNTIL HIS FOLLOW UP NEXT WEEK THEN PODIATRY WOULD SEND IN ORDER FOR DRESSING CHANGE ORDERS. SHE VERIFIED UNDERSTANDING. Initialized on 03/25/23 13:23 - END OF NOTE Assessment/Plan (1) Peripheral neuropathy Current Visit: Yes Status: Acute Assessment & Plan: POD #2 s/p Hallux open amputation Patient progressing without complication at this time Radiographs demonstrating interval amputation of hallux to level of MPJ. No soft tissue emphysema. Packing pulled and wound assessed demonstrating no clinical appearance of residual infection at this time. Some minimal however increasing indications of necrosis of wound margins. Dopplerable pulses as biphasic and triphasic respectively to the left DP and PT. Packing discontinued- Dressing consisting of Iodine adpatic 4x4 kerlik abd and VICTOR MANUEL with minimal to moderate compression Continue IV abx at this time. Soft tissue and osseous cultures obtained. Awaiting results. Vanco/zosyn combo for now. Will likely d/c on Oral abx. No PICC line placement recommended. Pain control DVT prophylaxis Plan for D/c to home with home health care for dressing changes 2x a week with office visits with us 1x weekly- Patient states Sister can do dressing changes. I am amenable to this instead of HHC if reliable. Back to OR Thursday for DPC. Ok for D/c once closure preformed. Code(s): G62.9 - POLYNEUROPATHY, UNSPECIFIED (2) Cellulitis of great toe, right Current Visit: No Status: Acute Code(s): L03.031 - CELLULITIS OF RIGHT TOE (3) Acute osteomyelitis of toe of right foot Current Visit: Yes Status: Acute Code(s): M86.171 - OTHER ACUTE OSTEOMYELITIS, RIGHT ANKLE AND FOOT (4) Type 2 diabetes mellitus Current Visit: Yes Status: Acute (5) Nicotine dependence Current Visit: Yes Status: Acute Code(s): F17.200 - NICOTINE DEPENDENCE, U NSPECIFIED, UNCOMPLICATED
--- NOTE | 2023-03-25 17:04 | PCM.NOTE ---
Date and Time: 03/25/231658 Subjective Assessment: No acute events overnight. No pain in his foot. No further drainage. Patient reports that he spoke to Dr. Loco, and planning on taking back to the OR tomorrow for closure. - Review of Systems All Other Systems: Reviewed and Negative Objective Exam General Appearance: no apparent distress Neurologic Exam: alert, oriented x 3, normal mood/affect Skin Exam: other (Dressing to right foot wound is clean, dry, and intact) Wound Assessment: Skin/Wound Assessment Wound/Incision Assessment Start: 03/23/23 11:03 Text: Status: Active Freq: Q6H Protocol: Document 03/25/23 14:00 EK (Rec: 03/25/23 15:30 EK [id number]) Wound/Incision Assessment Right Toe Wound Assessment Shift Assessment Wound Type Incision Wound Stage Non Pressure Wound Dressing Status Dry & Intact Drainage Amount None Comment DRESSING CHANGED TODAY- PACKING REMOVED. C/D/I AT THIS TIME Respiratory Exam: normal breath sounds, lungs clear, No respiratory distress Cardiovascular Exam: regular rate/rhythm, No murmur Gastrointestinal/Abdomen Exam: soft, No tenderness, No distention OBJECTIVE DATA Vital Signs: Vital Signs - 24 hr Temp Pulse Resp BP Pulse Ox 03/25/23 16:22 74 18 92 L 03/25/23 16:00 98.3 F 83 17 145/74 92 L 03/25/23 13:09 72 18 90 L 03/25/23 12:00 18 03/25/23 11:56 98.2 F 76 16 141/79 93 L 03/25/23 08:00 18 03/25/23 07:16 97.2 F 81 16 133/63 92 L 03/25/23 05:47 78 20 95 03/25/23 04:00 97.5 F 76 20 138/72 92 L 03/25/23 00:00 20 03/24/23 23:59 97.8 F 77 20 141/65 96 03/24/23 20:00 99.3 F 77 20 162/77 93 L 03/24/23 19:23 62 20 97 Pain Assessment - Last Documented Pain Intensity 8 Pain Scale Used 0-10 Pain Scale Intake and Output: Intake & Output 03/23/23 03/24/23 03/25/23 03/26/23 11:59 11:59 11:59 11:59 Intake Total 720 1720 240 Output Total 5986 6827 300 Balance -1430 -355 -60 Weight 78.9 kg 78.9 kg 78.9 kg Multi-Disciplinary Progress Notes: Multi-Disciplinary Progress Notes 03/25/23 13:41 Case Management Note by Liz Garcia [facility] HAS BEEN SET UP. THEY WILL NEED NOTIFIED AT TIME OF DC AT [phone]. THEY WILL NEED FAXED THE DC INSTRUCTIONS, DC MED LIST AND DC SUMMARY ( IF AVAILABLE) TO [phone] Initialized on 03/25/23 13:41 - END OF NOTE 03/25/23 13:27 Case Management Note by Liz Garcia Addendum entered by Liz Garcia 03/25/23 13:41: NOTE FOR 1230 Original Note: S/W JEANINE- DRESSING CHANGE ORDERS CLARIFIED. DRESSING TO REMAIN IN PLACE UNTIL FOLLOW UP THEN PODIATRY WILL SEND ORDERS TO [facility]. WILL SEND UPDATED ORDER TO FRANCINE Initialized on 03/25/23 13:27 - END OF NOTE 03/25/23 13:23 Case Management Note by Liz Garcia Addendum entered by Liz Garcia 03/25/23 13:41: UPDATED ORDERS SENT AT THIS TIME Original Note: S/W PATIENT ABOUT SETTING UP [facility] FOR DRESSING CHANGES. PATIENT AGREEABLE BUT ONLY IF IT DOESN'T COST HIM ANYTHING. PATIENT REPORTS THIS IS THE ONLY WAY HE WILL AGREE TO ANYTHING. I TRIED TO DISCUSS OPTIONS IF THERE WOULD BE A COPAY. PATIENT REPORTS HIS SISTER COULD DO HIS DRESSING CHANGES. I STATED THIS OPTION WOULD NEED TO BE DISCUSSED WITH DR. ST- PATIENT REPLIED "I DON'T HAVE TO TALK TO DR. ST ABOUT ANYTHING" REFERRAL SENT TO [facility]- S/W STEFANIE- SHE REPORTS THEY ARE IN NETWORK WITH INSURANCE. THEY HAVE ACCEPTED AND REPORT THERE WILL BE $0 COPAY FOR PATIENT. THEY WERE UPDATED THAT NEW ORDERS WILL BE SENT PATIENTS DRESSING NEEDS TO BE LEFT INTACT UNTIL HIS FOLLOW UP NEXT WEEK THEN PODIATRY WOULD SEND IN ORDER FOR DRESSING CHANGE ORDERS. SHE VERIFIED UNDERSTANDING. Initialized on 03/25/23 13:23 - END OF NOTE Assessment/Plan (1) Acute osteomyelitis of toe of right foot Current Visit: Yes Status: Acute Assessment & Plan: 73 year old male with h/o DM2 and recurrent diabetic foot infections/amputations, here with right first toe acute osteomyelitis, now s/p amputation. ## Acute osteomyelitis of right 1st toe - See in distal phalax, and somewhat in proximal phalanx, on MRI last week. S/p ray amputation by Dr. St on 03/23 (POD #2). - continue Zosyn, day 3 - follow up operative cultures/pathology Likely plan for 1 to 2 weeks of oral antibiotics after closure tomorrow - return to OR for closure, likely on ; per Dr. Loco ## DM2 - poorly controlled, with HbA1c 8.4 in December. But glucose levels controlled here. - continue home Lantus 18 HS, Lispro 6 qAC - cover with sliding scale Lispro - continuehome Jardiance 25 daily ## Hypertension - BP controlled. - continue Lasix, Norvasc 10, Toprol XL 12.5 ## Nicotine dependence - continue nicotine patch Code status: Full code Prophylaxis: holding lovenox due to surgery tomorrow Dispo: Likely home tomorrow after surgical closure of wound. Will do home health wound care, and follow up with Dr. Loco. Entirety of encounter took place via telemedicine, to which patient consented. Code(s): M86.171 - OTHER ACUTE OSTEOMYELITIS, RIGHT ANKLE AND FOOT (2) Type 2 diabetes mellitus Current Visit: Yes Status: Acute Qualifiers: Diabetes mellitus complication status: with skin complications Diabetes mellitus complication detail: with foot ulcer (3) Hypertension Current Visit: Yes Status: Acute Qualifiers: Hypertension type: primary hypertension Qualified Code(s): I10 - Essential (primary) hypertension Code(s): I10 - ESSENTIAL (PRIMARY) HYPERTENSION (4) Nicotine dependence Current Visit: Yes Status: Acute Code(s): F17.200 - NICOTINE DEPENDENCE, UNSPECIFIED, UNCOMPLICATED
[2023-03-25] MEDS: ZOCOR 20MG PO SCH (21:32)
[2023-03-25] MEDS: Lantus Insulin SQ SCH (21:40)
[2023-03-26] MEDS: PIPERACILLIN/TAZOBACTAM 3.375 GM in Sodium Chloride 100ML MINI-BAG PLUS 100 ML IV SCH ×5 (00:10→23:35)
[2023-03-26] MEDS: NORCO 5/325 MG PO PRN ×4 (04:14→22:37)
[2023-03-26] MEDS: VENTOLIN COMMON CANISTER IH SCH ×4 (05:46→19:30)
[2023-03-26] MEDS: Spiriva 18 Mcg/Cap Inhaler IH SCH (05:47)
[2023-03-26] MEDS: Advair Hfa 115/21 Common canister IH SCH ×2 (05:47→19:30)
[2023-03-26] MEDS: HUMALOG SQ SCH ×3 (08:13→17:09)
[2023-03-26] MEDS: NORVASC 5 MG PO SCH (09:18)
[2023-03-26] MEDS: ECOTRIN 81 MG PO SCH (09:19)
[2023-03-26] MEDS: Toprol-Xl 25MG Tablets PO SCH (09:19)
[2023-03-26] MEDS: HEPARIN 5000 UNITS/0.5 ML (HIGH RISK MED) SQ SCH ×2 (09:19→23:40)
[2023-03-26] MEDS: LASIX 20 MG PO SCH (09:19)
[2023-03-26] MEDS: JARDIANCE PO SCH (09:47)
[2023-03-26] MEDS: HUMALOG SQ PRN (12:04)
--- NOTE | 2023-03-26 12:16 | PCM.NOTE ---
Date and Time: 03/26/23 1211 Subjective Assessment: No acute events overnight. Dr. Loco unable to take to the OR today as no availability in the schedule. Patient disappointed, but understands the plan. He still has some pain in his right foot, but no discharge noted. He states plan is for his sister to help him with wound care when he goes home. - Review of Systems All Other Systems: Reviewed and Negative Objective Exam General Appearance: no apparent distress Neurologic Exam: alert, oriented x 3 Skin Exam: other (Right foot dressing clean dry and intact) Wound Assessment: Skin/Wound Assessment Wound/Incision Assessment Start: 03/23/23 11:03 Text: Status: Active Freq: Q6H Protocol: Document 03/26/23 08:00 AR (Rec: 03/26/23 09:38 AR [id number]) Wound/Incision Assessment Right Toe Wound Assessment Shift Assessment Wound Type Incision Wound Stage Non Pressure Wound Dressing Status Dry & Intact Drainage Amount None Wound Photo Photo Taken No Respiratory Exam: normal breath sounds, lungs clear, No respiratory distress Cardiovascular Exam: regular rate/rhythm, No murmur, No edema OBJECTIVE DATA Vital Signs: Vital Signs - 24 hr Temp Pulse Resp BP Pulse Ox 03/26/23 11:37 98.9 F 84 16 147/70 90 L 03/26/23 10:35 94 H 16 94 L 03/26/23 07:13 98.8 F 69 17 102/59 93 L 03/26/23 05:47 81 18 92 L 03/26/23 04:00 98.5 F 84 22 157/76 96 03/26/23 00:00 97.8 F 82 20 162/77 94 L 03/25/23 20:00 98.0 F 93 H 20 116/59 93 L 03/25/23 19:05 93 H 18 93 L 03/25/23 16:22 74 18 92 L 03/25/23 16:00 98.3 F 83 18 145/74 92 L 03/25/23 13:09 72 18 90 L Pain Assessment - Last Documented Pain Intensity 8 Pain Scale Used 0-10 Pain Scale Intake and Output: Intake & Output 03/24/23 03/25/23 03/26/23 03/27/23 11:59 11:59 11:59 11:59 Intake Total 720 1720 1740 Output Total 2150 2075 1850 Balance -1430 -355 -110 Weight 78.9 kg 78.9 kg Multi-Disciplinary Progress Notes: Multi-Disciplinary Progress Notes 03/25/23 13:41 Case Management Note by Liz Garcia [facility] HAS BEEN SET UP. THEY WILL NEED NOTIFIED AT TIME OF DC AT [phone]. THEY WILL NEED FAXED THE DC INSTRUCTIONS, DC MED LIST AND DC SUMMARY ( IF AVAILABLE) TO [phone] Initialized on 03/25/23 13:41 - END OF NOTE 03/25/23 13:27 Case Management Note by Liz Garcia Addendum entered by Liz Garcia 03/25/23 13:41: NOTE FOR 1230 Original Note: S/W JEANINE- DRESSING CHANGE ORDERS CLARIFIED. DRESSING TO REMAIN IN PLACE UNTIL FOLLOW UP THEN PODIATRY WILL SEND ORDERS TO [facility]. WILL SEND UPDATED ORDER TO [facility] Initialized on 03/25/23 13:27 - END OF NOTE 03/25/23 13:23 Case Management Note by Liz Garcia Addendum entered by Liz Garcia 03/25/23 13:41: UPDATED ORDERS SENT AT THIS TIME Original Note: S/W PATIENT ABOUT SETTING UP [facility] FOR DRESSING CHANGES. PATIENT AGREEABLE BUT ONLY IF IT DOESN'T COST HIM ANYTHING. PATIENT REPORTS THIS IS THE ONLY WAY HE WILL AGREE TO ANYTHING. I TRIED TO DISCUSS OPTIONS IF THERE WOULD BE A COPAY. PATIENT REPORTS HIS SISTER COULD DO HIS DRESSING CHANGES. I STATED THIS OPTION WOULD NEED TO BE DISCUSSED WITH DR. ST- PATIENT REPLIED "I DON'T HAVE TO TALK TO DR. ST ABOUT ANYTHING" REFERRAL SENT TO [facility]- S/W STEFANIE- SHE REPORTS THEY ARE IN NETWORK WITH INSURANCE. THEY HAVE ACCEPTED AND REPORT THERE WILL BE $0 COPAY FOR PATIENT. THEY WERE UPDATED THAT NEW ORDERS WILL BE SENT PATIENTS DRESSING NEEDS TO BE LEFT INTACT UNTIL HIS FOLLOW UP NEXT WEEK THEN PODIATRY WOULD SEND IN ORDER FOR DRESSING CHANGE ORDERS. SHE VERIFIED UNDERSTANDING. Initialized on 03/25/23 13:23 - END OF NOTE Assessment/Plan (1) Acute osteomyelitis of toe of right foot Current Visit: Yes Status: Acute Assessment & Plan: 73 year old male with h/o DM2 and recurrent diabetic foot infections/amputations, here with right first toe acute osteomyelitis, now s/p amputation. ## Acute osteomyelitis of right 1st toe - See in distal phalax, and somewhat in proximal phalanx, on MRI last week. S/p ray amputation by Dr. St on 03/23 (POD #3). - continue Zosyn, day 4 - follow up operative cultures/pathology Likely plan for 1 to 2 weeks of oral antibiotics after closure tomorrow - return to OR for closure tomorrow; per Dr. Loco ## DM2 - poorly controlled, with HbA1c 8.4 in December. But glucose levels contro lled here. - continue home Lantus 18 HS, Lispro 6 qAC - cover with sliding scale Lispro - continue home Jardiance 25 daily ## Hypertension - BP controlled. - continue Lasix, Norvasc 10, Toprol XL 12.5 ## Nicotine dependence - continue nicotine patch Code status: Full code Prophylaxis: holding lovenox due to surgery tomorrow Dispo: Likely home tomorrow after surgical closure of wound. Patient declines home health wound care, states sister will do his wound care. We will follow-up [address] Loco. Entirety of encounter took place via telemedicine, to which patient consented. Code(s): M86.171 - OTHER ACUTE OSTEOMYELITIS, RIGHT ANKLE AND FOOT (2) Type 2 diabetes mellitus Current Visit: Yes Status: Acute Qualifiers: Diabetes mellitus complication status: with skin complications Diabetes mellitus complication detail: with foot ulcer (3) Hypertension Current Visit: Yes Status: Acute Qualifiers: Hypertension type: primary hypertension Qualified Code(s): I10 - Essential (primary) hypertension Code(s): I10 - ESSENTIAL (PRIMARY) HYPERTENSION (4) Nicotine dependence Current Visit: Yes Status: Acute Code(s): F17.200 - NICOTINE DEPENDENCE, UNSPECIFIED, UNCOMPLICATED Telemedicine Encounter - Telemedicine Encounter Telemedicine Encounter: The entirety of this encounter was performed via Telemedicine"
[2023-03-26] MEDS: Nicoderm CQ 21 MG TOP SCH (16:40)
--- NOTE | 2023-03-26 17:51 | PCM.NOTE ---
Date and Time: 03/26/231749 Subjective Assessment: POD #3 patient doing well without complication, Eager for DC tomorrow Physical Exam - Narrative Narrative Physical Exam: Podiatry Physical Exam OBJECTIVE DATA Vital Signs: Vital Signs - 24 hr Temp Pulse Resp BP Pulse Ox 03/26/23 16:00 97.8 F 90 14 163/79 90 L 03/26/23 15:03 82 16 93 L 03/26/23 12:00 16 03/26/23 11:37 98.9 F 84 16 147/70 90 L 03/26/23 10:35 94 H 16 94 L 03/26/23 07:13 98.8 F 69 17 102/59 93 L 03/26/23 05:47 81 18 92 L 03/26/23 04:00 98.5 F 84 22 157/76 96 03/26/23 00:00 97.8 F 82 20 162/77 94 L 03/25/23 20:00 98.0 F 93 H 20 116/59 93 L 03/25/23 19:05 93 H 18 93 L Pain Assessment - Last Documented Pain Intensity 8 Pain Scale Used 0-10 Pain Scale Intake and Output: Intake & Output 03/24/23 03/25/23 03/26/23 03/27/23 11:59 11:59 11:59 11:59 Intake Total 720 1720 1740 480 Output Total 2150 2075 1850 475 Balance -1430 -355 -110 5 Weight 78.9 kg 78.9 kg Multi-Disciplinary Progress Notes: Multi-Disciplinary Progress Notes 03/26/23 13:34 Case Management Note by Liz Garcia S/W ALMA ROSA- HE PLANS TO ALLOW PATIENT TO PUT PRESSURE ON HEEL IN SURGICAL SHOW AFTER OR TOMORROW. THIS SHOULD BE MAINLY TO TRANSFER IN AND OUT OF WHEELCHAIR. WHEELCHAIR WAS DELIVERED BY [facility] 03/25 [facility] HAS ACCEPTED AND WILL START AFTER FOLLOW UP NEXT WEEK. PATIENT REPORTS HE HAS EVERYTHING HE NEEDS AT HOME AND WILL BE ABLE TO CARE FOR HIMSELF AT HOME. NO NEW NEEDS Initialized on 03/26/23 13:34 - END OF NOTE Assessment/Plan (1) Peripheral neuropathy Current Visit: Yes Status: Acute Code(s): G62.9 - POLYNEUROPATHY, UNSPECIFIED (2) Cellulitis of great toe, right Current Visit: No Status: Acute Code(s): L03.031 - CELLULITIS OF RIGHT TOE (3) Acute osteomyelitis of toe of right foot Current Visit: Yes Status: Acute Assessment & Plan: POD #3 s/p Hallux open amputation Patient progressing without complication at this time Radiographs demonstrating interval amputation of hallux to level of MPJ. No soft tissue emphysema. Wound assessed demonstrating no clinical appearance of residual infection at this time. Some minimal however stable necrosis of wound margins. Dopplerable pulses as biphasic and triphasic respectively to the left DP and PT. Dressing consisting of Iodine adpatic 4x4 kerlik abd and VICTOR MANUEL with minimal to moderate compression Continue IV abx at this time. Will likely d/c on Oral levofloxacin 500 mg PO daily 10 days. Pain control DVT prophylaxis Plan for D/c to home -Patient states Sister can do dressing changes. I am amenable to this instead of [facility] if reliable. Back to OR Thursday for DPC. Ok for D/c once closure preformed. Code(s): M86.171 - OTHER ACUTE OSTEOMYELITIS, RIGHT ANKLE AND FOOT (4) Type 2 diabetes mellitus Current Visit: Yes Status: Acute Qualifiers: Diabetes mellitus complication status: with skin complications Diabetes mellitus complication detail: with foot ulcer (5) Nicotine dependence Current Visit: Yes Status: Acute Code(s): F17.200 - NICOTINE DEPENDENCE, UNSPECIFIED, UNCOMPLICATED
[2023-03-26] MEDS: TYLENOL 325 MG PO PRN (19:53)
[2023-03-26] MEDS: ZOCOR 20MG PO SCH (23:35)
[2023-03-26] MEDS: Lantus Insulin SQ SCH (23:39)
[2023-03-27] MEDS: TYLENOL 325 MG PO PRN (03:38)
[2023-03-27] MEDS: NORCO 5/325 MG PO PRN (05:10)
[2023-03-27] MEDS: PIPERACILLIN/TAZOBACTAM 3.375 GM in Sodium Chloride 100ML MINI-BAG PLUS 100 ML IV SCH (05:14)
[2023-03-27] MEDS ORDERED: Marcaine Mpf 0.5% Vial 30 Ml ONE (06:46)
[2023-03-27] MEDS ORDERED: Xylocaine 1% Vial 30 ML PF IJ ONE (06:46)
[2023-03-27] MEDS: VENTOLIN COMMON CANISTER IH SCH ×2 (06:48→10:47)
[2023-03-27] MEDS: Spiriva 18 Mcg/Cap Inhaler IH SCH (06:48)
[2023-03-27] MEDS: Advair Hfa 115/21 Common canister IH SCH (06:48)
[2023-03-27] MEDS: Toprol-Xl 25MG Tablets PO SCH (08:37)
[2023-03-27] MEDS: HUMALOG SQ SCH ×2 (09:21→13:10)
[2023-03-27] MEDS ORDERED: DIPRIVAN 200 MG/20 ML IV ONE ×2 (09:37→10:28)
[2023-03-27] MEDS ORDERED: SUBLIMAZE 100 MCG/2 ML ONE (09:37)
[2023-03-27] MEDS ORDERED: Versed 2 MG/2 ML Injection ONE (09:37)
[2023-03-27] MEDS ORDERED: Sodium Chloride 0.9% 1000 ML 1,000 ML ONE (09:45)
[2023-03-27] MEDS: LASIX 20 MG PO SCH (11:46)
[2023-03-27] MEDS: ECOTRIN 81 MG PO SCH (11:46)
[2023-03-27] MEDS: NORVASC 5 MG PO SCH (11:47)
[2023-03-27] MEDS: JARDIANCE PO SCH (11:48)
[2023-03-27] MEDS ORDERED: NORCO 5/325 MG PO PRN (12:01)
[2023-03-27] MEDS ORDERED: MOTRIN 600 MG PO PRN (12:02)
--- NOTE | 2023-03-27 12:27 | PCM.DS ---
Discharge Summary Date of Admission: 03/23/23 10:38 Date of Discharge: 03/27/23 Admitting Physician: TATY STODDARD DO Consults: Dr. Van for podiatry Primary Care Provider: OSMAR JACKSON NP Allergies Allergies No Known Drug Allergies Allergy (Unverified 02/22/23 11:31) Hospital Summary - Hospital Course Hospital Course: 73-year-old man with history of type 2 diabetes with recent right first toe osteomyelitis. Failed treatment with p.o. antibiotics as an outpatient, and was admitted from podiatry Dr. Alma Rosa Van's office for planned amputation. Patient underwent right first toe amputation on 03/23. Tolerated the procedure well, and was initially placed on empiric Zosyn. Pathology was sent, but results were still pending at time of discharge. Dr. Van took patient back to the OR on 03/27 for final closure. Pain was controlled, and patient was arranged to be discharged to home. He will complete a 10-day course of oral Levaquin. He is to remain nonweightbearing to the right foot, except for minimal heel weightbearing in a shoe for transfers in and out of wheelchair only. Arranged for home health wound care, but this will not start until after patient's first follow-up visit with Dr. Van on 04/02. Entirety of encounter took place via telemedicine. Patient consented to telemedicine. Greater than 30 minutes managing discharge. - Vitals & Intake/Output Vital Signs: Vital Signs Temperature 97.8 F 03/27/23 11:47 Pulse Rate 74 03/27/23 11:47 Respiratory Rate 17 03/27/23 11:47 Blood Pressure 135/71 03/27/23 11:47 O2 Sat by Pulse Oximetry 91 L 03/27/23 11:47 Intake & Output: Intake & Output 03/25/23 03/26/23 03/27/23 03/28/23 11:59 11:59 11:59 11:59 Intake Total 1720 1740 1840 Output Total 2074 1849 2029 Balance -355 -110 -190 Weight 78.9 kg 78.9 kg - Lab Result Diagrams: 03/24/23 04:15 03/24/23 04:15 Micro Results-Entire Visit: Accuchecks Date 03/27/23 Date 03/27/23 Date 03/26/23 Date 03/26/23 Time 11:35 Time 07:28 Time 22:10 Time 16:19 - Procedures and Test Procedures and Tests throughout Hospitalization: Therapy Orders & Screens 03/24/23 07:00 Respiratory Therapy Assessment DAILY Comment: Diagnosis: acute osteomyelitis of foot 03/27/23 08:30 EKG ROUTINE Comment: Diagnosis: acute osteomyelitis of foot Discharge Exam General Appearance: no apparent distress Neurologic Exam: alert, oriented x 3, normal mood/affect Eye Exam: eyes nml inspection Respiratory Exam: normal breath sounds, lungs clear, No respiratory distress, No accessory muscle use Cardiovascular Exam: regular rate/rhythm, normal heart sounds, No murmur, No edema Gastrointestinal/Abdomen Exam: soft, No tenderness, No distention Skin Exam: other (Dressing to right leg, clean, dry, and intact. No surrounding erythema or edema.) Wound Assessment: Skin/Wound Assessment Wound/Incision Assessment Start: 03/23/23 11:03 Text: Status: Active Freq: Q6H Protocol: Document 03/27/23 08:00 (Rec: 03/27/23 09:09 [id number]) Wound/Incision Assessment Right Toe Wound Assessment Shift Assessment Wound Type Incision Wound Stage Non Pressure Wound Dressing Status Dry & Intact Drainage Amount None Comment dressing in place CDI Wound Photo Photo Taken No Final Diagnosis/Problem List - Final Discharge Diagnosis/Problem (1) Acute osteomyelitis of toe of right foot Current Visit: Yes Status: Acute Code(s): M86.171 - OTHER ACUTE OSTEOMYELITIS, RIGHT ANKLE AND FOOT (2) Type 2 diabetes mellitus Current Visit: Yes Status: Acute (3) Hypertension Current Visit: Yes Status: Acute Code(s): I10 - ESSENTIAL (PRIMARY) HYPERTENSION (4) Nicotine dependence Current Visit: Yes Status: Acute Code(s): F17.200 - NICOTINE DEPENDENCE, UNSPECIFIED, UNCOMPLICATED Telemedicine Encounter - Telemedicine Encounter Telemedicine Encounter: The entirety of this encounter was performed via Telemedicine" - Discharge Disposition: Home, Self-Care Condition: Stable Prescriptions: New Aspirin EC 325 mg [Ecotrin 325 MG] 325 mg PO DAILY #30 Hydrocodone/Acetaminophen [Hydrocodone-Acetamin 5-325 mg] 1 tab PO Q6H #1 tablet MDD 4 Levofloxacin [Levofloxacin 500 MG Tablet] 500 mg PO DAILY #10 tablet Continue Insulin Glargine,Hum.rec.anlog [Lantus] 18 unit SQ HS Insulin Aspart [Novolog] 6 unit SQ TIDWMEALS Tiotropium [place] [Spiriva Handihaler] 18 mcg IH DAILY Albuterol 8 gm Mdi Hfa [Ventolin Hfa MDI] 8 gm IH DAILY Amlodipine Besylate 5 mg [Norvasc 5 mg] 10 mg PO DAILY Metoprolol Succinate [Toprol Xl] 12.5 mg PO DAILY Empagliflozin [Jardiance] 25 mg PO DAILY Furosemide [Lasix] 10 mg PO DAILY Cholecalciferol (Vitamin D3) [Vitamin D3] 50,000 unit PO DAILY Atorvastatin Calcium 20 mg PO HS Discontinued Aspirin 81 mg PO DAILY Albuterol 8 gm Mdi Hfa [Ventolin Hfa MDI] 8 gm IH DAILY Additional Instructions: -THE ABOVE PRESCRIPTIONS WERE SENT TO [facility]- TAKE DIRECTED ON BOT TLE -LEAVE YOUR DRESSING INTACT UNTIL YOU SEE DR. ST NEXT WEEK -MAY BEAR WEIGHT ON HEEL ONLY FOR SHORT DISTANCES WHILE IN SURGICAL SHOE- MAINLY ONLY TO TRANSFER IN AND OUT OF WHEELCHAIR -[facility] HAS BEEN SET UP - THEY WILL START AFTER YOUR FIRST APT WITH DR. ST. THEY WILL CONTACT YOU TO MAKE AN APPOINTMENT. THEIR PHONE NUMBER IS [phone] IF YOU NEED TO REACH THEM Follow up with: ALMA ROSA VAN DPM [ACTIVE STAFF] - 04/02/23 9:00 am
[2023-03-27 12:45] VITALS: BP 140/65; PULSE 70; O2SAT 95
[2023-03-27] MEDS: HEPARIN 5000 UNITS/0.5 ML (HIGH RISK MED) SQ SCH (13:00)
[2023-03-28] MEDS ORDERED: Ecotrin 325 MG PO SCH (10:00)
[2023-03-28] MEDS ORDERED: Levofloxacin 500 MG Tablet PO SCH (10:00)
--- NOTE | 2023-03-30 11:19 | OP ---
SURGERY DATE/TIME: 03/27/2023 1011 PREOPERATIVE DIAGNOSES: 1) Osteomyelitis right hallux. 2) Diabetic foot ulcer. 3) Peripheral neuropathy. 4) Staged procedure amputation. POSTOPERATIVE DIAGNOSES: 1) Osteomyelitis right hallux. 2) Diabetic foot ulcer. 3) Peripheral neuropathy. 4) Staged procedure amputation. PROCEDURE: Incision and drainage with delayed primary closure right foot. SURGEON: Omar Loco DPM. SPECIAL EQUIPMENT TECHNICIAN: None. ANESTHESIA: Monitored anesthesia care with intraoperative local. HEMOSTASIS: Pressure dressing. ESTIMATED BLOOD LOSS: Less than 10 cc. MATERIALS: 2-0 Vicryl, 3-0 Nylon, 2-0 Nylon and two Suturegards. INJECTABLES: 20 cc of 1:1 mixture of 1% lidocaine plain and 0.5% bupivacaine plain injected in a Pan block-type fashion to the right foot. INDICATION FOR SURGERY: This is a continued staged, second stage, to a procedure the patient had performed on 03/23/2023 for an amputation of the hallux secondary to osteomyelitis. The patient has been seeing outpatient for a wound to the right great toe that was not responding to therapy as we would have hoped. At the time we obtained a MRI which demonstrated drop out on T1 signal as well as uptake on T2 characteristic of osteomyelitis. I agreed with the radiologist read at that time. Options were described with the patient and the patient wished to proceed with surgical intervention in order to prevent worsening of the wound or spreading of the infection. There was some delay in his treatment secondary to insurance issues. However on Thursday, the patient was able to advocate for himself and we direct admitted the patient for the procedure and proceeded with the amputation which went well without any complication. Over the course of this last week he presented without residual signs of infection. At this time he has tolerated IV antibiotics and at this time is ready for closure of the wound. There is minimal necrosis regarding his vascularity. However, he does have intact palpable pulses triphasic to the P2 and biphasic to the BP. The patient understands all risks, complications and benefits of surgical intervention including but not limited to infection, hematoma, seroma, possibility of delayed wound healing or nonwound healing and possibility of need for surgical intervention at a later date and possible need for further amputation. No guarantees have been provided as to the outcome of surgical intervention. At this time we decided to proceed. DESCRIPTION OF PROCEDURE AND FINDINGS: The patient is brought into the OR and placed on the OR table in the supine position. At this time monitored anesthesia care was administered until the patient was sedated. The right lower extremity prepped and draped in the typical sterile fashion and lowered onto the surgical field. At this time a 20 cc block of a 1:1 mixture of 1% lidocaine plain and 0.5% bupivacaine plain was injected in a Pan block-type fashion to the right extremity. Following this attention was directed to the sutures which were removed. Copious amounts of sterile saline were utilized to flush the site. A healthy bleeding edge was identified by resecting approximately 5 mm of soft tissue this was enough to obtain a healthy bleeding edge and also allow for minimal tension on closure of the wound. At this time the healthy bleeding edge was identified. Both the dorsal and plantar flaps were cleansed of any necrotic or nonviable tissue wound. Copious amounts of sterile saline were utilized to flush this site. 2-0 Vicryl was then utilized to coapt the subcutaneous edges in a simple interrupted buried-type fashion. Following this a Suturegard was introduced on the dorsal and plantar aspect of the foot and then a vertical mattress-type suture was performed with 2-0 Nylon taking tension off of the medial aspect of the incision site. Following this 3-0 Nylon was utilized in an alternating horizontal mattress and simple interrupted fashion in order to coapt the skin edges in everted fashion with as much contact as possible of the skin edges. Following this dressing was placed consisting of Betadine, Adaptic, 4x4, Kerlix and VICTOR MANUEL. The patient was then reversed from anesthesia returned to the postoperative anesthesia care unit with vital signs and vascular status intact. The patient handled the anesthesia as well as the procedure without significant complication. Postoperative orders as indicated in the patient's discharge chart.
== END 2023-03-27 13:30 | disposition home health service (06) | DRG 502 ==
LOC: SDC 10:37 → MED SURG 10:38
PROVIDERS: ADMIT Family Medicine; ATTEND Family Medicine
PROC: 0Y6P0Z0 Detachment at Right 1st Toe, Complete, Open Approach (ICD-10-PCS; principal; 2023-03-23)
PROC: 0JQQ0ZZ Repair Right Foot Subcutaneous Tissue and Fascia, Open Approach (ICD-10-PCS; 2023-03-27)
PROC: 0J9Q0ZZ Drainage of Right Foot Subcutaneous Tissue and Fascia, Open Approach (ICD-10-PCS; 2023-03-27)
DX: M86.171 Other acute osteomyelitis, right ankle and foot (principal); E11.621 Type 2 diabetes mellitus with foot ulcer; E11.42 Type 2 diabetes mellitus with diabetic polyneuropathy; L03.031 Cellulitis of right toe; M79.671 Pain in right foot; I10 Essential (primary) hypertension; F17.200 Nicotine dependence, unspecified, uncomplicated; E78.5 Hyperlipidemia, unspecified; Z79.899 Other long term (current) drug therapy; Z20.828 Contact with and (suspected) exposure to other viral communicable diseases
CPT/HCPCS: 13160; 28005; 28820; 36415; 73630; 76000; 80048; 84134; 85027; 93005; 94640; 94760; 99024; 99232; Q3014; J1644; J1817; J2001; J2250; J2704; J3010; A9270-GY

== ENCOUNTER 2023-05-05 09:32 | Inpatient (IN) | payer MEDICARE ==
[2023-05-05 11:43] LABS: Hematocrit 38.5 % (42-50); Hemoglobin 12.6 g/dL (12.5-18.0); Mean Cell Volume 85.4 fL (78-100); Mean Corpuscular Hemoglobin 27.9 pg (26-32); Mean Corpuscular Hgb Concent. 32.7 g/dL (32-36); Mean Platelet Volume 10.1 fL (7.5-11.0); Platelet Count 450 x10^3/uL (150-450); Red Blood Count 4.51 x10^6/uL (4.1-5.6); Red Cell Distribution Width 13.7 % (11.5-14.0); White Blood Count 9.8 x10^3/uL (4.0-10.5)
[2023-05-05 11:46] LABS: BLOOD UREA NITROGEN 36 mg/dL (9-20); CHLORIDE 99 mmol/L (98-107); Carbon Dioxide 27 mmol/L (22-30); Creatinine 1 0.71 mg/dL (0.66-1.25); EST GLOMERULAR FILTRATION RATE > 60.0 ML/MIN; Glucose 178 mg/dL (74-106); PREALBUMIN 13.06 mg/dL (17.6-36.0); Potassium 4.2 mmol/L (3.5-5.1); SODIUM 136 mmol/L (137-145)
[2023-05-05] MEDS ORDERED: MEDICATION INTERVENTION MC SCH (13:45)
[2023-05-05] MEDS: KEFZOL 1 GM/50 ML PREMIX** 1 GM/50 ML IVPB IV SCH ×2 (15:47→22:14)
[2023-05-05] MEDS: ENOXAPARIN SODIUM SQ SCH (15:47)
[2023-05-05] MEDS: HUMALOG SQ PRN (16:06)
[2023-05-05] MEDS: HUMALOG SQ SCH (16:57)
[2023-05-05] MEDS ORDERED: NON-FORMULARY ITEM (Insulin Aspart [Novolog] 100 UNIT/ML Vial) SQ SCH (17:00)
[2023-05-05] MEDS: VENTOLIN COMMON CANISTER IH SCH ×2 (19:18→19:22)
[2023-05-05] MEDS: Advair Hfa 115/21 Common canister IH SCH (19:19)
[2023-05-05] MEDS: TYLENOL 325 MG PO PRN (19:26)
[2023-05-05] MEDS: ULTRAM 50 MG PO PRN (20:34)
[2023-05-05] MEDS ORDERED: NON-FORMULARY ITEM (Atorvastatin Calcium [Atorvastatin Calcium] 20 MG Tablet) PO SCH (22:00)
[2023-05-05] MEDS ORDERED: Lantus Insulin SQ SCH (22:00)
[2023-05-05] MEDS ORDERED: NON-FORMULARY ITEM (Budesonide/Formoterol Fumarate [Budesonide-Formoterol 160-4.5] 10.2 GM IH SCH (22:00)
--- NOTE | 2023-05-05 22:05 | PCM.HP ---
History of Present Illness - Chief Complaint Chief Complaint: post surgical non healing wound Date: 05/05/23 History of Present Illness: 73-year-old man with history of type 2 diabetes, recent right first toe osteomyelitis, who required amputation on 03/[address] Loco. Unfortunately, patient has not been able to maintain his nonweightbearing status while at home because he lives alone, and wound has continued to drain and have dehiscence. As well, he has persistent leg swelling secondary to venous insufficiency, leading to increased drainage from the wound. He has been following Dr. Loco in clinic, and was admitted from clinic for more dedicated wound care for a few days to try and get the wound closed better. Patient is unaware of what drainage he is having from the wound, saying is always under his dressing. However, he denies any pain or worsening swelling from the foot. No fevers, chills, and having good appetite. However, his blood sugars have been more elevated recently. - Review of Systems Constitutional: No Fever, No Chills, No Malaise Eyes: No Symptoms Ears, Nose, & Throat: No Symptoms Respiratory: No Symptoms Cardiac: No Symptoms Abdominal/Gastrointestinal: No Symptoms Genitourinary Symptoms: No Symptoms Musculoskeletal: No Symptoms Skin: Cellulitis (Increased drainage as per HPI) Neurological: No Symptoms Psychological: No Symptoms Endocrine: No Symptoms Medications & Allergies Home Medications: Home Medication List Albuterol 8 gm Mdi Hfa [Ventolin Hfa MDI] 2 puff IH Q4H 03/18/23 [History Confirmed 05/05/23] Amlodipine Besylate 5 mg [Norvasc 5 mg] 10 mg PO DAILY 03/18/23 [History Confirmed 05/05/23] Atorvastatin Calcium 20 mg PO HS 03/18/23 [History Confirmed 05/05/23] Empagliflozin [Jardiance] 25 mg PO DAILY 03/18/23 [History Confirmed 05/05/23] Furosemide [Lasix] 10 mg PO DAILY 03/18/23 [History Confirmed 05/05/23] Insulin Aspart [Novolog] 6 unit SQ TIDWMEALS 03/18/23 [History Confirmed 05/05/23] Insulin Glargine,Hum.rec.anlog [Lantus] 18 unit SQ HS 03/18/23 [History Confirmed 05/05/23] Metoprolol Succinate [Toprol Xl] 12.5 mg PO DAILY 03/18/23 [History Confirmed 05/05/23] Tiotropium [place] [Spiriva Handihaler] 18 mcg IH DAILY 03/18/23 [History Confirmed 05/05/23] Aspirin EC 325 mg [Ecotrin 325 MG] 325 mg PO DAILY #30 03/27/23 [Rx Confirmed 05/05/23] Budesonide/Formoterol Fumarate [Budesonide-Formoterol 160-4.5] 2 puffs IH BID 05/05/23 [History Confirmed 05/05/23] Cholecalciferol (Vitamin D3) [Vitamin D] 1,000 unit PO DAILY 05/05/23 [History Confirmed 05/05/23] Allergies/Adverse Reactions: Allergies Allergy/AdvReac Type Severity Reaction Status Date / Time No Known Drug Allergies Allergy Verified 04/26/23 20:01 - Past Medical History Past Medical History: Yes Neurological History: No Pertinent History ENT History: Cataracts Cardiac History: Deep Vein Thrombosis, High Cholesterol, Hypertension Respiratory History: COPD Endocrine Medical History: Diabetes Type II Musculoskelatal History: No Pertinent History GI Medical History: Colorectal Cancer History: No Pertinent History Pyscho-Social History: No Pertinent History Male Reproductive Disorders: No Pertinent History - Past Surgical History Past Surgical History: Yes Neuro Surgical History: No Pertinent History Cardiac History: No Pertinent History Respiratory Surgery: No Pertinent History GI Surgical History: Colon Resection Genitourinary Surgical Hx: No Pertinent History Musculskeletal Surgical Hx: Amputation, Orthopedic Surgery Male Surgical History: No Pertinent History Other Surgical History: second digit on left foot amputated, left knee, colon cancer surgery, right ear, right great toe amputation - Social History Smoking Status: Current every day smoker How long have you smoked: years Exposure to second hand smoke: Yes Alcohol: Daily Drug Use: none Significant Family History: diabetes - Physical Exam Vital Signs: Vital Signs - 24 hr Temp Pulse Resp BP Pulse Ox 05/05/23 19:54 97.1 F 87 20 126/55 93 L 05/05/23 19:26 103 H 18 93 L 05/05/23 16:00 97.3 F 85 16 151/57 92 L 05/05/23 15:07 88 18 89 L 05/05/23 14:32 89 L 05/05/23 12:00 97.3 F 76 16 136/63 89 L 05/05/23 10:33 97.1 F 88 16 137/69 89 L 05/05/23 09:45 97.1 F 88 18 137/69 89 L 05/05/23 09:36 77.3 F 88 16 137/69 89 L Wound Assessment: Skin/Wound Assessment Wound/Incision Assessment Start: 05/05/23 10:16 Text: Status: Active Freq: Q6H Protocol: Document 05/05/23 20:00 LB (Rec: 05/05/23 20:56 LB [id number]) Wound/Incision Assessment Right Foot Wound Assessment Shift Assessment Wound Type Amputation Wound Stage Non Pressure Wound Dressing Status Dry & Intact Comment post op wound right foot, right great toe removed [address] Nelson dressed the wound, unable to assess at this time. Wound Photo Photo Taken No Additional Findings: GENERAL: Sitting up in bed in no acute distress NEURO: Alert, oriented x3, normal affect CV: Regular rate and rhythm, no murmurs, no edema PULM: Clear to auscultation bilaterally, no work of breathing ABD: Soft, nontender, nondistended EXTREMITIES: Right foot still in bandage from clinic. No erythema or edema visible above bandaged area. Results - Labs Lab/Micro Results: Lab Results-Last 24 Hours 05/05/23 05/05/23 05/05/23 Range/Units 11:10 11:10 11:38 WBC 9.8 (4.0-10.5) x10^3/uL RBC 4.51 (4.1-5.6) x10^6/uL Hgb 12.6 (12.5-18.0) g/dL Hct 38.5 L (42-50) % MCV 85.4 (78-100) fL MCH 27.9 (26-32) pg MCHC 32.7 (32-36) g/dL RDW 13.7 (11.5-14.0) % Plt Count 450 (150-450) x10^3/uL MPV 10.1 (7.5-11.0) fL ESR 84 H (0-15) mm/hr Sodium 136 L (137-145) mmol/L Potassium 4.2 (3.5-5.1) mmol/L Chloride 99 (98-107) mmol/L Carbon Dioxide 27 (22-30) mmol/L Anion Gap 14.0 (5-15) MEQ/L BUN 36 H (9-20) mg/dL Creatinine 0.71 (0.66-1.25) mg/dL Estimated GFR > 60.0 ML/MIN Glucose 178 H (74-106) mg/dL POC Glucometer (74 to 106) mg/dL Lactic Acid (0.4-2.0) Calcium 9.0 (8.4-10.2) mg/dL Prealbumin 13.06 L (17.6-36.0) mg/dL 05/05/23 05/05/23 05/05/23 Range/Units 11:40 12:45 16:37 WBC (4.0-10.5) x10^3/uL RBC (4.1-5.6) x10^6/uL Hgb (12.5-18.0) g/dL Hct (42-50) % MCV (78-100) fL MCH (26-32) pg MCHC (32-36) g/dL RDW (11.5-14.0) % Plt Count (150-450) x10^3/uL MPV (7.5-11.0) fL ESR (0-15) mm/hr Sodium (137-145) mmol/L Potassium (3.5-5.1) mmol/L Chloride (98-107) mmol/L Carbon Dioxide (22-30) mmol/L Anion Gap (5-15) MEQ/L BUN (9-20) mg/dL Creatinine (0.66-1.25) mg/dL Estimated GFR ML/MIN Glucose (74-106) mg/dL POC Glucometer 187 H 298 H (74 to 106) mg/dL Lactic Acid 1.1 (0.4-2.0) Calcium (8.4-10.2) mg/dL Prealbumin (17.6-36.0) mg/dL Accuchecks Date 05/05/23 Date 05/05/23 Time 16:47 Time 12:15 - Other Procedures and Tests Respiratory Therapy 05/05/23 14:30 Respiratory Therapy Assessment DAILY Assessment/Plan (1) Wound dehiscence Current Visit: Yes Status: Acute Assessment & Plan: 73-year-old man with history of type 2 diabetes and recurrent diabetic foot infections amputations, here with dehiscence of the wound from his right first toe amputation on 03/23. ## Wound dehiscence secondary to poor compliance with weightbearing restrictions, as well as some increased edema secondary to venous insufficiency. Discussed with Dr. Loco, and when to do more aggressive wound care while he is here. We will continue Ancef per Dr. Loco Encourage patient to keep foot elevated to reduce swelling PT evaluation for wound care Continue Lasix to help with getting fluid off Nonweightbearing to the right foot ## Type 2 diabetes overall poorly controlled, with hemoglobin A1c of 8.4. Resume home Lantus 18 units QHS, lispro 6 units QAC Start moderate dose sliding scale insulin Resume home Jardiance 25 mg daily ## Hypertension blood pressure controlled. Continue amlodipine 10, Toprol-XL 12.5, Lasix 10 mg daily from home #Other COPD Continue home Spiriva, Advair, and PRN albuterol CODE STATUS: Full code Prophylaxis: Lovenox 40 daily Diet: Diabetic Code(s): T81.30XA - DISRUPTION OF WOUND, UNSPECIFIED, INITIAL ENCOUNTER Telemedicine Encounter - Telemedicine Encounter Telemedicine Encounter: The entirety of this encounter was performed via Telemedicine"
[2023-05-05] MEDS: ZOCOR 20MG PO SCH (22:14)
[2023-05-06] MEDS: ULTRAM 50 MG PO PRN ×4 (02:02→23:30)
[2023-05-06 05:18] LABS: Absolute Neutrophil Ct (ANC) 4.29 x10^3/uL (1.4-6.9); BASOPHIL % 1.1 % (0.0-0.4); Basophil (Absolute #) 0.08 x10^3/uL (0-0.4); Eosinophil % 3.5 % (0.00-5.0); Eosinophil (Absolute #) 0.25 x10^3/uL (0-0.5); Hematocrit 39.6 % (42-50); Hemoglobin 12.8 g/dL (12.5-18.0); IMMATURE GRAN # 0.02 x10^3u/L (0.00-0.03); IMMATURE GRAN % 0.3 % (0.00-0.4); Mean Cell Volume 85.7 fL (78-100); Mean Corpuscular Hemoglobin 27.7 pg (26-32); Mean Corpuscular Hgb Concent. 32.3 g/dL (32-36); Mean Platelet Volume 9.9 fL (7.5-11.0); Monocyte (Absolute #) 0.51 x10^3/uL (0.0-1.3); Monocytes % 7.1 % (0.0-12.0); Platelet Count 455 x10^3/uL (150-450); Red Blood Count 4.62 x10^6/uL (4.1-5.6); Red Cell Distribution Width 13.8 % (11.5-14.0); White Blood Count 7.2 x10^3/uL (4.0-10.5)
[2023-05-06 05:42] LABS: ALBUMIN 3.7 g/dL (3.5-5.0); ALKALINE PHOSPHATASE 98 U/L (38-126); ANION GAP 12.5 MEQ/L (5-15); BLOOD UREA NITROGEN 31 mg/dL (9-20); CHLORIDE 104 mmol/L (98-107); Calcium 8.7 mg/dL (8.4-10.2); Carbon Dioxide 25 mmol/L (22-30); Creatinine 1 0.63 mg/dL (0.66-1.25); EST GLOMERULAR FILTRATION RATE > 60.0 ML/MIN; Glucose 138 mg/dL (74-106); Potassium 3.8 mmol/L (3.5-5.1); SGOT/AST 17 U/L (17-59); SGPT/ALT 15 U/L (0-50); SODIUM 137 mmol/L (137-145); Total Protein 7.4 g/dL (6.3-8.2)
[2023-05-06] MEDS: KEFZOL 1 GM/50 ML PREMIX** 1 GM/50 ML IVPB IV SCH ×3 (06:06→21:39)
[2023-05-06] MEDS: Advair Hfa 115/21 Common canister IH SCH ×2 (08:06→18:18)
[2023-05-06] MEDS: Spiriva 18 Mcg/Cap Inhaler IH SCH (08:06)
[2023-05-06] MEDS: VENTOLIN COMMON CANISTER IH PRN ×2 (08:07→18:18)
[2023-05-06] MEDS: HUMALOG SQ SCH ×3 (08:15→17:23)
[2023-05-06] MEDS: LASIX 20 MG PO SCH (09:36)
[2023-05-06] MEDS: Nicoderm CQ 21 MG TOP SCH (09:36)
[2023-05-06] MEDS: VITAMIN D PO SCH (09:36)
[2023-05-06] MEDS: NORVASC 5 MG PO SCH (09:36)
[2023-05-06] MEDS: ENOXAPARIN SODIUM SQ SCH (09:37)
[2023-05-06] MEDS: JARDIANCE PO SCH (09:37)
[2023-05-06] MEDS: Toprol-Xl 25MG Tablets PO SCH (09:37)
[2023-05-06] MEDS ORDERED: NON-FORMULARY ITEM (Cholecalciferol (Vitamin D3) [Vitamin D3] 1,250 MCG Capsule) PO SCH (10:00)
[2023-05-06] MEDS ORDERED: Ventolin Hfa MDI IH SCH (10:00)
[2023-05-06] MEDS: HUMALOG SQ PRN (12:07)
[2023-05-06] MEDS: TYLENOL 325 MG PO PRN ×2 (13:32→20:24)
--- NOTE | 2023-05-06 15:07 | PCM.NOTE ---
Date and Time: 05/06/23 1458 Subjective Assessment: No acute events overnight. Last night, patient was walking around, trying to go to the bathroom. Nurses found him, and brought him to urinals that he can stay off of his foot, which he is post to be nonweightbearing. Today he is sitting up in the edge of the bed with his feet dependent. Asked if he can keep his leg elevated, perhaps up in his rollator or in a chair, to help with swelling. He later met with physical therapy, and discussed his difficulty with maintaining his nonweightbearing status. However he was uninterested in their suggestions for alternative ways of using his rollator to keep weight off of his foot. We also discussed options such as skilled rehab to help with his wound care, as well as to help keep him off of his foot. He was eventually agreeable to this option. Objective Exam Wound Assessment: Skin/Wound Assessment Wound/Incision Assessment Start: 05/05/23 10:16 Text: Status: Active Freq: Q6H Protocol: Document 05/06/23 14:00 (Rec: 05/06/23 14:32 [id number]) Wound/Incision Assessment Right Foot Wound Assessment Shift Assessment Wound Type Amputation Wound Stage Non Pressure Wound Dressing Status Dry & Intact Comment post op wound right foot, right great toe removed [address] dressed the wound, unable to assess at this time. Wound Photo Photo Taken No Comments: GENERAL: Sitting up at edge of bed in no acute distress NEURO: Alert, oriented x3, normal affect CV: Regular rate and rhythm, no murmurs, no edema PULM: Clear to auscultation bilaterally, no work of breathing ABD: Soft, nontender, nondistended EXTREMITIES: Right foot still in bandage from clinic. No erythema or edema visible above bandaged area. OBJECTIVE DATA Vital Signs: Vital Signs - 24 hr Temp Pulse Resp BP Pulse Ox 05/06/23 11:40 97.4 F 91 H 16 161/71 90 L 05/06/23 09:48 68 18 98 05/06/23 06:49 97.5 F 68 18 143/72 98 05/06/23 04:00 97.8 F 68 20 131/57 93 L 05/05/23 23:57 97.9 F 67 19 145/68 93 L 05/05/23 19:54 97.1 F 87 20 126/55 93 L 05/05/23 19:26 103 H 18 93 L 05/05/23 16:00 97.3 F 85 16 151/57 92 L 05/05/23 15:07 88 18 89 L Pain Assessment - Last Documented Pain Intensity 5 Pain Scale Used 0-10 Pain Scale Intake and Output: Intake & Output 05/04/23 05/05/23 05/06/23 05/07/23 11:59 11:59 11:59 11:59 Intake Total 1340 360 Output Total 750 Balance 590 360 Weight 77.3 kg Lab Results: Lab Results-Last 24 Hours 05/05/23 05/05/23 05/06/23 Range/Units 11:38 16:37 04:00 WBC 7.2 (4.0-10.5) x10^3/uL RBC 4.62 (4.1-5.6) x10^6/uL Hgb 12.8 (12.5-18.0) g/dL Hct 39.6 L (42-50) % MCV 85.7 (78-100) fL MCH 27.7 (26-32) pg MCHC 32.3 (32-36) g/dL RDW 13.8 (11.5-14.0) % Plt Count 455 H (150-450) x10^3/uL MPV 9.9 (7.5-11.0) fL Gran % 60.0 (36.0-66.0) % Immature Gran % (Auto) 0.3 (0.00-0.4) % Nucleat RBC Rel Count 0.0 (0.00-0.1) % Eos # (Auto) 0.25 (0-0.5) x10^3/uL Immature Gran # (Auto) 0.02 (0.00-0.03) x10^3u/L Absolute Lymphs (auto) 2.00 (1.0-4.6) x10^3/uL Absolute Monos (auto) 0.51 (0.0-1.3) x10^3/uL Absolute Nucleated RBC 0.00 (0.00-0.01) x10^3u/L Lymphocytes % 28.0 (24.0-44.0) % Monocytes % 7.1 (0.0-12.0) % Eosinophils % 3.5 (0.00-5.0) % Basophils % 1.1 (0.0-0.4) % Absolute Granulocytes 4.29 (1.4-6.9) x10^3/uL Basophils # 0.08 (0-0.4) x10^3/uL Sodium (137-145) mmol/L Potassium (3.5-5.1) mmol/L Chloride (98-107) mmol/L Carbon Dioxide (22-30) mmol/L Anion Gap (5-15) MEQ/L BUN (9-20) mg/dL Creatinine (0.66-1.25) mg/dL Estimated GFR ML/MIN Glucose (74-106) mg/dL POC Glucometer 298 H (74 to 106) mg/dL Calcium (8.4-10.2) mg/dL Total Bilirubin (0.2-1.3) mg/dL AST (17-59) U/L ALT (0-50) U/L Alkaline Phosphatase (38-126) U/L C-Reactive Prot, Quant 39 H (0-10) mg/L Serum Total Protein (6.3-8.2) g/dL Albumin (3.5-5.0) g/dL 05/06/23 Range/Units 04:28 WBC (4.0-10.5) x10^3/uL RBC (4.1-5.6) x10^6/uL Hgb (12.5-18.0) g/dL Hct (42-50) % MCV (78-100) fL MCH (26-32) pg MCHC (32-36) g/dL RDW (11.5-14.0) % Plt Count (150-450) x10^3/uL MPV (7.5-11.0) fL Gran % (36.0-66.0) % Immature Gran % (Auto) (0.00-0.4) % Nucleat RBC Rel Count (0.00-0.1) % Eos # (Auto) (0-0.5) x10^3/uL Immature Gran # (Auto) (0.00-0.03) x10^3u/L Absolute Lymphs (auto) (1.0-4.6) x10^3/uL Absolute Monos (auto) (0.0-1.3) x10^3/uL Absolute Nucleated RBC (0.00-0.01) x10^3u/L Lymphocytes % (24.0-44.0) % Monocytes % (0.0-12.0) % Eosinophils % (0.00-5.0) % Basophils % (0.0-0.4) % Absolute Granulocytes (1.4-6.9) x10^3/uL Basophils # (0-0.4) x10^3/uL Sodium 137 (137-145) mmol/L Potassium 3.8 (3.5-5.1) mmol/L Chloride 104 (98-107) mmol/L Carbon Dioxide 25 (22-30) mmol/L Anion Gap 12.5 (5-15) MEQ/L BUN 31 H (9-20) mg/dL Creatinine 0.63 L (0.66-1.25) mg/dL Estimated GFR > 60.0 ML/MIN Glucose 138 H (74-106) mg/dL POC Glucometer (74 to 106) mg/dL Calcium 8.7 (8.4-10.2) mg/dL Total Bilirubin 0.40 (0.2-1.3) mg/dL AST 17 (17-59) U/L ALT 15 (0-50) U/L Alkaline Phosphatase 98 (38-126) U/L C-Reactive Prot, Quant (0-10) mg/L Serum Total Protein 7.4 (6.3-8.2) g/dL Albumin 3.7 (3.5-5.0) g/dL Multi-Disciplinary Progress Notes: Multi-Disciplinary Progress Notes 05/06/23 12:57 Case Management Note by Liz Garcia PATIENT NOW AGREEABLE TO GO TO REHAB. HE WANTS TO GO TO A FACILITY HE CAN SMOKE AT. S/W ALMA ROSA WELL. PATIENT GIVEN FACILITY OPTIONS. HE WOULD LIKE TO PROCEED WITH [facility] FOR REHAB Initialized on 05/06/23 12:57 - END OF NOTE 05/06/23 11:29 Case Management Note by Liz Garcia PATIENT HAS [facility]RU [facility]. THEY WERE NOTIFIED HE IS HERE. THEY WILL NEED NOTIFIED AT TIME OF DC AT [phone]. THEY WILL NEED FAXED THE DC INSTRUCTIONS, DC MED LIST AND DC SUMMARY ( IF AVAILABLE) TO [phone] Initialized on 05/06/23 11:29 - END OF NOTE 05/06/23 11:23 Case Management Note by Liz Garcia [facility] Initialized on 05/06/23 11:23 - END OF NOTE 05/06/23 11:11 Case Management Note by Liz Garcia Addendum entered by Liz Garcia 05/06/23 11:17: PATIENT ALSO NOTIFIED THAT HELP THRU [facility] WOULD NOT IMMEDIATE, THAT IT WOULD BE A PROCESS. PATIENT VERIFIED UNDERSTANDING AND STATED "LIFES A PROCESS" Original Note: PATIENT VERY MEAN DURING CASE MANAGEMENT ASSESSMENT. HE INTERMITTENTLY WOULD YELL AT THIS REAL ESTATE REP WHEN HE WAS ANNOYED BY QUESTIONS ASKED. PATIENT REPORTS HE IS UNABLE TO STAY OFF HIS FOOT BECAUSE HE LIVES ALONE. I APPROACHED THE SUBJECT OF A REHAB STAY. PATIENT IMMEDIATELY SAID " NO, NO, NO". HE WOULD NOT LET THIS REAL ESTATE REP FINISH HER SENTENCES ABOUT THIS SUBJECT. WHEN I THEN EXPLAINED THAT HIS STAY HERE WOULD NOT BE VERY LONG AND THAT IS WHY REHAB WOULD BE APPROPRIATE PATIENT THEN STATED" THEN SEND ME HOME". WHEN ASKED WHAT CAN BE DONE TO ASSIST PATIENT AT HOME- PATIENT REQUESTING A EXPORT SALES ASSISTANT AND SOMEONE TO HELP WITH MEALS. WILL SEND IN REFERRAL TO [facility]. PATIENT HAS HAD [facility] BUT HE REPORTS HE IS UNSURE IF DR. ST WILL WANT THAT TO CONTINUE. DR. ST'S OFFICE NOTIFIED OF PATIENT'S ATTITUDE AND REFUSAL TO DISCUSS WHAT HE NEEDS. Initialized on 05/06/23 11:11 - END OF NOTE 05/06/23 10:47 Physical Therapy Note by Abi(Georgina#[id number]),[employer] SPOKE W/ PT. THIS A.M. PT. AT BEDSIDE. HE REPORTS HE STAYS OFF OF L FOOT MUCH HE CAN AT HOME. PT. STATES HE LIVES ALONE AND HAS TO "FIX MEALS, SHOWER, AND USE RESTROOM" AND CANNOT STAY OFF OF FOOT ALL THE TIME. PT. HAS A W/C AND ROLLATOR. NOT INTERESTED IN PT'S SUGGESTION TO USE W/C AND ROLLATOR IN SEATED POSITION FOR MOBILITY AT HOME TO MINIMIZE WB W/ ADL. ADVISED PT. THAT HEALING OF WOUND WILL BE VERY DIFFICULT WITHOUT COMPLIANCE W/ NWB. WILL MONITOR FOR NEED FOR SKILLED INTERVENTION BUT PT. NOT INTERESTED AT THIS TIME. Initialized on 05/06/23 10:47 - END OF NOTE 05/05/23 15:22 Physical Therapy Note by Abi(L#[id number])Antionette P.T. ORDERS RECEIVED THIS DATE. ATTEMPTED TO CHECK IN ON PT. AND HE WAS SLEEPING. WILL SPEAK W/ HIM TOMORROW RE: MOBILITY AND DME NEEDS. Initialized on 05/05/23 15:22 - END OF NOTE Assessment/Plan (1) Wound dehiscence Current Visit: Yes Status: Acute Assessment & Plan: 73-year-old man with history of type 2 diabetes and recurrent diabetic foot infections amputations, here with dehiscence of the wound from his right first toe amputation on 03/23. ## Wound infection patient continues to have severe drainage around the wound. He was prescribed an outpatient course of Levaquin without improvement. Partially secondary to wound dehiscence (see below), but has had failure of outpatient management and needs persistent IV antibiotics. Started on cefazolin Follow-up improvement in appearance of wound ## Wound dehiscence secondary to poor compliance with weightbearing restrictions, as well as some increased edema secondary to venous insufficiency. He has difficulty keeping off of his foot, as well as keeping his leg elevated to help with the venous patency. Encourage patient to keep foot elevated to reduce swelling Continue wound care Continue Lasix to help with removing fluid Nonweightbearing to the right foot ## Type 2 diabetes overall poorly controlled, with hemoglobin A1c of 8.4. Glucose continues to run in the mid 200s. Increase Lantus to 22 units QHS Continue home scheduled lispro 6 units QAC Continue moderate dose sliding scale insulin Continue home Jardiance 25 mg daily ## Hypertension blood pressure overall controlled. Continue amlodipine 10, Toprol-XL 12.5, Lasix 10 mg daily from home #Other COPD Continue home Spiriva, Advair, and PRN albuterol CODE STATUS: Full code Prophylaxis: Lovenox 40 daily Diet: Diabetic Code(s): T81.30XA - DISRUPTION OF WOUND, UNSPECIFIED, INITIAL ENCOUNTER Telemedicine Encounter - Telemedicine Encounter Telemedicine Encounter: The entirety of this encounter was performed via Telemedicine"
--- NOTE | 2023-05-06 17:35 | PCM.CONS ---
Podiatry HPI - Consult Date of Consultation Date: 05/06/23 Reason for Consult: Surgical wound dehiscence right foot Consulting Provider: ALMA ROSA VAN DPM - [facility] History of Present Illness: William is a very pleasant 73-year-old male with a significant past medical history of diabetes tobacco dependence venous insufficiency and multiple dehiscences of surgical wound due to noncompliance of therapy. Patient currently has had 2 interventions in order to eradicate infection to an osteomyelitis my lytic toe to the right foot after closure the first time the wound dehiscence occurred and maceration of the wound edges took place. Patient was adamant about proceeding with intervention in order to take care of the issue and prevent infection from spreading to the rest of his foot therefore an additional procedure was performed and we are repeating history with maceration of the wound and a dehiscence of the surgical wound secondary to his inability to be nonweightbearing and potentially secondary to his tobacco dependence. He currently denies any constitutional symptoms of infection. He denies any other pedal complaints at this time Medications & Allergies Home Medications: Home Medication List Albuterol 8 gm Mdi Hfa [Ventolin Hfa MDI] 2 puff IH Q4H 03/18/23 [History Confirmed 05/05/23] Amlodipine Besylate 5 mg [Norvasc 5 mg] 10 mg PO DAILY 03/18/23 [History Confirmed 05/05/23] Atorvastatin Calcium 20 mg PO HS 03/18/23 [History Confirmed 05/05/23] Empagliflozin [Jardiance] 25 mg PO DAILY 03/18/23 [History Confirmed 05/05/23] Furosemide [Lasix] 10 mg PO DAILY 03/18/23 [History Confirmed 05/05/23] Insulin Aspart [Novolog] 6 unit SQ TIDWMEALS 03/18/23 [History Confirmed 05/05/23] Insulin Glargine,Hum.rec.anlog [Lantus] 18 unit SQ HS 03/18/23 [History Confirmed 05/05/23] Metoprolol Succinate [Toprol Xl] 12.5 mg PO DAILY 03/18/23 [History Confirmed 05/05/23] Tiotropium Vancourt [Spiriva Handihaler] 18 mcg IH DAILY 03/18/23 [History Confirmed 05/05/23] Aspirin EC 325 mg [Ecotrin 325 MG] 325 mg PO DAILY #30 03/27/23 [Rx Confirmed 05/05/23] Budesonide/Formoterol Fumarate [Budesonide-Formoterol 160-4.5] 2 puffs IH BID 05/05/23 [History Confirmed 05/05/23] Cholecalciferol (Vitamin D3) [Vitamin D] 1,000 unit PO DAILY 05/05/23 [History Confirmed 05/05/23] Allergies/Adverse Reactions: Allergies Allergy/AdvReac Type Severity Reaction Status Date / Time No Known Drug Allergies Allergy Verified 04/26/23 20:01 - Past Medical History Past Medical History: Yes Neurological History: No Pertinent History ENT History: Cataracts Cardiac History: Deep Vein Thrombosis, High Cholesterol, Hypertension Respiratory History: COPD Endocrine Medical History: Diabetes Type II Musculoskelatal History: No Pertinent History GI Medical History: Colorectal Cancer History: No Pertinent History Pyscho-Social History: No Pertinent History Male Reproductive Disorders: No Pertinent History - Past Surgical History Past Surgical History: Yes Neuro Surgical History: No Pertinent History Cardiac History: No Pertinent History Respiratory Surgery: No Pertinent History GI Surgical History: Colon Resection Genitourinary Surgical Hx: No Pertinent History Musculskeletal Surgical Hx: Amputation, Orthopedic Surgery Male Surgical History: No Pertinent History Other Surgical History: second digit on left foot amputated, left knee, colon cancer surgery, right ear, right great toe amputation - Social History Smoking Status: Current every day smoker How long have you smoked: years Exposure to second hand smoke: Yes Alcohol: Daily Drug Use: none Significant Family History: diabetes Physical Exam - Narrative Narrative Physical Exam: Podiatry Physical Exam Results - Labs Lab/Micro Results: Lab Results-Last 24 Hours 05/05/23 05/06/23 05/06/23 Range/Units 11:38 04:00 04:28 WBC 7.2 (4.0-10.5) x10^3/uL RBC 4.62 (4.1-5.6) x10^6/uL Hgb 12.8 (12.5-18.0) g/dL Hct 39.6 L (42-50) % MCV 85.7 (78-100) fL MCH 27.7 (26-32) pg MCHC 32.3 (32-36) g/dL RDW 13.8 (11.5-14.0) % Plt Count 455 H (150-450) x10^3/uL MPV 9.9 (7.5-11.0) fL Gran % 60.0 (36.0-66.0) % Immature Gran % (Auto) 0.3 (0.00-0.4) % Nucleat RBC Rel Count 0.0 (0.00-0.1) % Eos # (Auto) 0.25 (0-0.5) x10^3/uL Immature Gran # (Auto) 0.02 (0.00-0.03) x10^3u/L Absolute Lymphs (auto) 2.00 (1.0-4.6) x10^3/uL Absolute Monos (auto) 0.51 (0.0-1.3) x10^3/uL Absolute Nucleated RBC 0.00 (0.00-0.01) x10^3u/L Lymphocytes % 28.0 (24.0-44.0) % Monocytes % 7.1 (0.0-12.0) % Eosinophils % 3.5 (0.00-5.0) % Basophils % 1.1 (0.0-0.4) % Absolute Granulocytes 4.29 (1.4-6.9) x10^3/uL Basophils # 0.08 (0-0.4) x10^3/uL Sodium 137 (137-145) mmol/L Potassium 3.8 (3.5-5.1) mmol/L Chloride 104 (98-107) mmol/L Carbon Dioxide 25 (22-30) mmol/L Anion Gap 12.5 (5-15) MEQ/L BUN 31 H (9-20) mg/dL Creatinine 0.63 L (0.66-1.25) mg/dL Estimated GFR > 60.0 ML/MIN Glucose 138 H (74-106) mg/dL Calcium 8.7 (8.4-10.2) mg/dL Total Bilirubin 0.40 (0.2-1.3) mg/dL AST 17 (17-59) U/L ALT 15 (0-50) U/L Alkaline Phosphatase 98 (38-126) U/L C-Reactive Prot, Quant 39 H (0-10) mg/L Serum Total Protein 7.4 (6.3-8.2) g/dL Albumin 3.7 (3.5-5.0) g/dL Accuchecks Date 05/06/23 Date 05/06/23 Date 05/06/23 Date 05/05/23 Time 16:00 Time 11:39 Time 06:48 Time 22:00 Assessment/Plan (1) Cellulitis of great toe, right Current Visit: No Status: Acute Assessment & Plan: Patient examination and evaluation Patient progressing at this time without complication Continue weight bearing protocol as prescribed. Continue Infection prophylaxis as prescribed. Continue DVT prophylaxis as prescribed. Unna boot for post operative venous insufficiency and localized edema Patient demonstrating indications of severe venous insufficiency with maceration of the wound. Recommend placement in long-term facility on discharge Will monitor closely maceration of wound over the course of the next several days. changes with iodine paint to wound adaptic iodine soaked gauze 4x4 sterile, unna boot with fan fold two layers of kerlix with compression applied and coban applied to the right lower extremity. If dehiscence continues will plan for excision of wound and repeat delayed primary closure. Patient has been advised to discontinue nicotine products as well as remain nonweightbearing during this period of time elevation of the extremities of the outpost importance in resolving this issue going forward We will follow-up with him tomorrow Code(s): L03.031 - CELLULITIS OF RIGHT TOE (2) Acute osteomyelitis of toe of right foot Current Visit: No Status: Acute Code(s): M86.171 - OTHER ACUTE OSTEOMYELITIS, RIGHT ANKLE AND FOOT (3) Type 2 diabetes mellitus Current Visit: No Status: Acute Qualifiers: Diabetes mellitus prison insulin use: with prison use Diabetes mellitus complication status: with circulatory complication Diabetes mellitus complication detail: with peripheral angiopathy with gangrene Qualified Code(s): E11.52 - Type 2 diabetes mellitus with diabetic peripheral angiopathy with gangrene; Z79.4 - alf (current) use of insulin (4) Nicotine dependence Current Visit: No Status: Acute Code(s): F17.200 - NICOTINE DEPENDENCE, UNSPECIFIED, UNCOMPLICATED (5) Peripheral neuropathy Current Visit: No Status: Acute Code(s): G62.9 - POLYNEUROPATHY, UNSPECIFIED (6) Wound dehiscence Current Visit: Yes Status: Acute Code(s): T81.30XA - DISRUPTION OF WOUND, UNSPECIFIED, INITIAL ENCOUNTER
[2023-05-06] MEDS: ZOCOR 20MG PO SCH ×2 (21:39→21:40)
[2023-05-06] MEDS: Lantus Insulin SQ SCH (21:39)
[2023-05-07] MEDS: TYLENOL 325 MG PO PRN ×3 (03:01→23:29)
[2023-05-07 04:46] LABS: Absolute Neutrophil Ct (ANC) 4.11 x10^3/uL (1.4-6.9); BASOPHIL % 0.9 % (0.0-0.4); Basophil (Absolute #) 0.06 x10^3/uL (0-0.4); Eosinophil (Absolute #) 0.26 x10^3/uL (0-0.5); Hematocrit 41.1 % (42-50); Hemoglobin 13.1 g/dL (12.5-18.0); IMMATURE GRAN # 0.02 x10^3u/L (0.00-0.03); IMMATURE GRAN % 0.3 % (0.00-0.4); Lymphocyte (Absolute #) 1.59 x10^3/uL (1.0-4.6); Lymphocytes % 24.3 % (24.0-44.0); Mean Cell Volume 86.3 fL (78-100); Mean Corpuscular Hemoglobin 27.5 pg (26-32); Mean Corpuscular Hgb Concent. 31.9 g/dL (32-36); Mean Platelet Volume 9.7 fL (7.5-11.0); Monocyte (Absolute #) 0.49 x10^3/uL (0.0-1.3); Monocytes % 7.5 % (0.0-12.0); Platelet Count 435 x10^3/uL (150-450); Red Blood Count 4.76 x10^6/uL (4.1-5.6); Red Cell Distribution Width 13.4 % (11.5-14.0); White Blood Count 6.5 x10^3/uL (4.0-10.5)
[2023-05-07 04:56] LABS: ALBUMIN 3.7 g/dL (3.5-5.0); ALKALINE PHOSPHATASE 96 U/L (38-126); ANION GAP 12.5 MEQ/L (5-15); BLOOD UREA NITROGEN 29 mg/dL (9-20); CHLORIDE 105 mmol/L (98-107); Calcium 8.9 mg/dL (8.4-10.2); Carbon Dioxide 25 mmol/L (22-30); EST GLOMERULAR FILTRATION RATE > 60.0 ML/MIN; Glucose 126 mg/dL (74-106); Potassium 3.8 mmol/L (3.5-5.1); SGOT/AST 17 U/L (17-59); SGPT/ALT 15 U/L (0-50); SODIUM 139 mmol/L (137-145); Total Protein 7.5 g/dL (6.3-8.2)
[2023-05-07] MEDS: ULTRAM 50 MG PO PRN ×3 (05:30→21:03)
[2023-05-07] MEDS: KEFZOL 1 GM/50 ML PREMIX** 1 GM/50 ML IVPB IV SCH ×3 (05:30→21:05)
[2023-05-07] MEDS: Spiriva 18 Mcg/Cap Inhaler IH SCH (06:29)
[2023-05-07] MEDS: Advair Hfa 115/21 Common canister IH SCH ×2 (06:29→18:36)
[2023-05-07] MEDS: VENTOLIN COMMON CANISTER IH SCH ×4 (06:29→18:36)
[2023-05-07] MEDS: Nicoderm CQ 21 MG TOP SCH (08:25)
[2023-05-07] MEDS: LASIX 20 MG PO SCH (08:27)
[2023-05-07] MEDS: Toprol-Xl 25MG Tablets PO SCH (08:27)
[2023-05-07] MEDS: VITAMIN D PO SCH (08:28)
[2023-05-07] MEDS: ENOXAPARIN SODIUM SQ SCH (08:28)
[2023-05-07] MEDS: JARDIANCE PO SCH (08:29)
[2023-05-07] MEDS: HUMALOG SQ SCH ×3 (08:30→17:15)
[2023-05-07] MEDS: NORVASC 5 MG PO SCH (08:31)
--- NOTE | 2023-05-07 11:25 | PCM.NOTE ---
Date and Time: 05/07/23 1114 Subjective Assessment: DOS: 05/07/23 Pt resting in bed on initial assessment. Pt wanting to leave as soon as possible. Discussed D/C plan and he is willing to go [facility] for rehab. Explained that he still needs wound care and antibiotics for a few more days prior to D/C. He discussed wanting to smoke and drink a beer. He has a nicotine patch in place and this helping to curb his craving to smoke. Asked about alcohol use and he reports drinking 2-3 beers a day. No current alcohol withdrawal sxs noted. Previous admissions this has not been a concern. Discussed keeping foot elevated to aide in healing. Right foot currently wrapped and unna boot in place. Wound care done by podiatry. Pt states pain is well controlled at this time. He would like his home Milk of magnesia and Lactulose restarted as he has chronic constipation. He denies any other concerns at this time. <WADE MAN - Last Filed: 05/07/23 11:25> Date and Time: 05/07/23 1435 <MARA MOY - Last Filed: 05/07/23 14:37> - Review of Systems Constitutional: No Fever, No Chills Eyes: No Symptoms Ears, Nose, & Throat: No Symptoms Respiratory: No Cough, No Short Of Breath Cardiac: No Chest Pain, No Edema, No Syncope Abdominal/Gastrointestinal: No Abdominal Pain, No Nausea, No Vomiting, No Diarrhea Genitourinary Symptoms: No Dysuria Musculoskeletal: No Back Pain, No Neck Pain Skin: Other (Unna boot in place right leg, right foot wrapped, Walking shoe in place), No Rash Neurological: No Dizziness, No Focal Weakness, No Sensory Changes Psychological: No Symptoms, Emotional Lability Endocrine: No Symptoms Hematologic/Lymphatic: No Symptoms Immunological/Allergic: No Symptoms <WADE MAN - Last Filed: 05/07/23 11:25> Objective Exam General Appearance: no apparent distress, alert Neurologic Exam: alert, oriented x 3, cooperative, normal mood/affect, nml cerebellar function, sensation nml, No motor deficits Skin Exam: normal color, warm, dry Wound Assessment: Skin/Wound Assessment Wound/Incision Assessment Start: 05/05/23 10:16 Text: Status: Active Freq: Q6H Protocol: Document 05/07/23 09:06 MAITE (Rec: 05/07/23 09:18 MAITE [id number]) Wound/Incision Assessment Right Foot Wound Assessment Shift Assessment Wound Type Amputation Wound Stage Non Pressure Wound Dressing Status Dry & Intact Secondary Dressing Elastic Bandage Comment post op wound right foot, right great toe removed [address] Nelson dressed the wound, unable to assess at this time. Wound Photo Photo Taken Yes Comment: Picture found in chart Eye Exam: PERRL, EOMI, eyes nml inspection Ears, Nose, Throat Exam: normal ENT inspection, pharynx normal, moist mucous membranes Neck Exam: normal inspection, non-tender, supple, full range of motion Respiratory Exam: normal breath sounds, lungs clear, No respiratory distress Cardiovascular Exam: regular rate/rhythm, normal heart sounds Gastrointestinal/Abdomen Exam: soft, No tenderness, No mass Extremity Exam: normal inspection, normal range of motion Back Exam: normal inspection, normal range of motion, No CVA tenderness, No vertebral tenderness Male Genitalia Exam: deferred Rectal Exam: deferred Comments: 05/07/23 11:29 irritable <WADE AMN - Last Filed: 05/07/23 11:25> Wound Assessment: Skin/Wound Assessment Wound/Incision Assessment Start: 05/05/23 10:16 Text: Status: Active Freq: Q6H Protocol: Document 05/07/23 09:06 MAITE (Rec: 05/07/23 09:18 MAITE [id number]) Wound/Incision Assessment Right Foot Wound Assessment Shift Assessment Wound Type Amputation Wound Stage Non Pressure Wound Dressing Status Dry & Intact Secondary Dressing Elastic Bandage Comment post op wound right foot, right great toe removed [address] Nelson dressed the wound, unable to assess at this time. Wound Photo Photo Taken Yes Comment: Picture found in chart <MARA MOY - Last Filed: 05/07/23 14:37> OBJECTIVE DATA Vital Signs: Vital Signs - 24 hr Temp Pulse Resp BP Pulse Ox 05/07/23 10:45 88 16 93 L 05/07/23 07:14 97.1 F 80 16 89/55 93 L 05/07/23 06:31 80 16 93 L 05/07/23 03:59 97.4 F 67 20 141/73 95 05/06/23 23:32 97.3 F 69 19 142/73 97 05/06/23 19:41 97.6 F 71 20 126/62 92 L 05/06/23 18:21 81 18 92 L 05/06/23 15:59 97.5 F 83 18 126/65 91 L 05/06/23 11:40 97.4 F 91 H 16 161/71 90 L Pain Assessment - Last Documented Pain Intensity 0 Pain Scale Used 0-10 Pain Scale Intake and Output: Intake & Output 05/04/23 05/05/23 05/06/23 05/07/23 11:59 11:59 11:59 11:59 Intake Total 1340 1832 Output Total 750 Balance 590 1832 Weight 77.3 kg Lab Results: Lab Results-Last 24 Hours 05/07/23 05/07/23 Range/Units 04:29 04:29 WBC 6.5 (4.0-10.5) x10^3/uL RBC 4.76 (4.1-5.6) x10^6/uL Hgb 13.1 (12.5-18.0) g/dL Hct 41.1 L (42-50) % MCV 86.3 (78-100) fL MCH 27.5 (26-32) pg MCHC 31.9 L (32-36) g/dL RDW 13.4 (11.5-14.0) % Plt Count 435 (150-450) x10^3/uL MPV 9.7 (7.5-11.0) fL Gran % 63.0 (36.0-66.0) % Immature Gran % (Auto) 0.3 (0.00-0.4) % Nucleat RBC Rel Count 0.0 (0.00-0.1) % Eos # (Auto) 0.26 (0-0.5) x10^3/uL Immature Gran # (Auto) 0.02 (0.00-0.03) x10^3u/L Absolute Lymphs (auto) 1.59 (1.0-4.6) x10^3/uL Absolute Monos (auto) 0.49 (0.0-1.3) x10^3/uL Absolute Nucleated RBC 0.00 (0.00-0.01) x10^3u/L Lymphocytes % 24.3 (24.0-44.0) % Monocytes % 7.5 (0.0-12.0) % Eosinophils % 4.0 (0.00-5.0) % Basophils % 0.9 (0.0-0.4) % Absolute Granulocytes 4.11 (1.4-6.9) x10^3/uL Basophils # 0.06 (0-0.4) x10^3/uL Sodium 139 (137-145) mmol/L Potassium 3.8 (3.5-5.1) mmol/L Chloride 105 (98-107) mmol/L Carbon Dioxide 25 (22-30) mmol/L Anion Gap 12.5 (5-15) MEQ/L BUN 29 H (9-20) mg/dL Creatinine 0.60 L (0.66-1.25) mg/dL Estimated GFR > 60.0 ML/MIN Glucose 126 H (74-106) mg/dL Calcium 8.9 (8.4-10.2) mg/dL Total Bilirubin 0.30 (0.2-1.3) mg/dL AST 17 (17-59) U/L ALT 15 (0-50) U/L Alkaline Phosphatase 96 (38-126) U/L Serum Total Protein 7.5 (6.3-8.2) g/dL Albumin 3.7 (3.5-5.0) g/dL Multi-Disciplinary Progress Notes: Multi-Disciplinary Progress Notes 05/07/23 11:05 Case Management Note by Liz Garcia PAPERWORK COMPLETED- NO LEVEL II REQUIRED. COPIES PLACED ON CHART Initialized on 05/07/23 11:05 - END OF NOTE 05/06/23 12:57 Case Management Note by Liz Garcia PATIENT NOW AGREEABLE TO GO TO REHAB. HE WANTS TO GO TO A FACILITY HE CAN SMOKE AT. S/W [facility]. PATIENT GIVEN FACILITY OPTIONS. HE WOULD LIKE TO PROCEED WITH [facility] FOR REHAB Initialized on 05/06/23 12:57 - END OF NOTE 05/06/23 11:29 Case Management Note by Liz Garcia PATIENT HAS C THRU [facility]. THEY WERE NOTIFIED HE IS HERE. THEY WILL NEED NOTIFIED AT TIME OF DC AT [phone]. THEY WILL NEED FAXED THE DC INSTRUC TIONS, DC MED LIST AND DC SUMMARY ( IF AVAILABLE) TO [phone] Initialized on 05/06/23 11:29 - END OF NOTE 05/06/23 11:23 Case Management Note by Liz Garcia REFERRAL FAXED TO [facility] Initialized on 05/06/23 11:23 - END OF NOTE <WADE MAN - Last Filed: 05/07/23 11:25> Vital Signs: Vital Signs - 24 hr Temp Pulse Resp BP Pulse Ox 05/07/23 11:24 97.1 F 73 16 134/65 91 L 05/07/23 10:45 88 16 93 L 05/07/23 07:14 97.1 F 80 16 89/55 93 L 05/07/23 06:31 80 16 93 L 05/07/23 03:59 97.4 F 67 20 141/73 95 05/06/23 23:32 97.3 F 69 19 142/73 97 05/06/23 19:41 97.6 F 71 20 126/62 92 L 05/06/23 18:21 81 18 92 L 05/06/23 15:59 97.5 F 83 18 126/65 91 L Pain Assessment - Last Documented Pain Intensity 0 Pain Scale Used 0-10 Pain Scale Intake and Output: Intake & Output 05/05/23 05/06/23 05/07/23 05/08/23 11:59 11:59 11:59 11:59 Intake Total 1340 1832 360 Output Total 750 Balance 590 1832 360 Weight 77.3 kg Lab Results: Lab Results-Last 24 Hours 05/07/23 05/07/23 Range/Units 04:29 04:29 WBC 6.5 (4.0-10.5) x10^3/uL RBC 4.76 (4.1-5.6) x10^6/uL Hgb 13.1 (12.5-18.0) g/dL Hct 41.1 L (42-50) % MCV 86.3 (78-100) fL MCH 27.5 (26-32) pg MCHC 31.9 L (32-36) g/dL RDW 13.4 (11.5-14.0) % Plt Count 435 (150-450) x10^3/uL MPV 9.7 (7.5-11.0) fL Gran % 63.0 (36.0-66.0) % Immature Gran % (Auto) 0.3 (0.00-0.4) % Nucleat RBC Rel Count 0.0 (0.00-0.1) % Eos # (Auto) 0.26 (0-0.5) x10^3/uL Immature Gran # (Auto) 0.02 (0.00-0.03) x10^3u/L Absolute Lymphs (auto) 1.59 (1.0-4.6) x10^3/uL Absolute Monos (auto) 0.49 (0.0-1.3) x10^3/uL Absolute Nucleated RBC 0.00 (0.00-0.01) x10^3u/L Lymphocytes % 24.3 (24.0-44.0) % Monocytes % 7.5 (0.0-12.0) % Eosinophils % 4.0 (0.00-5.0) % Basophils % 0.9 (0.0-0.4) % Absolute Granulocytes 4.11 (1.4-6.9) x10^3/uL Basophils # 0.06 (0-0.4) x10^3/uL Sodium 139 (137-145) mmol/L Potassium 3.8 (3.5-5.1) mmol/L Chloride 105 (98-107) mmol/L Carbon Dioxide 25 (22-30) mmol/L Anion Gap 12.5 (5-15) MEQ/L BUN 29 H (9-20) mg/dL Creatinine 0.60 L (0.66-1.25) mg/dL Estimated GFR > 60.0 ML/MIN Glucose 126 H (74-106) mg/dL Calcium 8.9 (8.4-10.2) mg/dL Total Bilirubin 0.30 (0.2-1.3) mg/dL AST 17 (17-59) U/L ALT 15 (0-50) U/L Alkaline Phosphatase 96 (38-126) U/L Serum Total Protein 7.5 (6.3-8.2) g/dL Albumin 3.7 (3.5-5.0) g/dL Multi-Disciplinary Progress Notes: Multi-Disciplinary Progress Notes 05/07/23 13:17 Case Management Note by Liz Garcia S/W [facility]- THEY HAVE RECEIVED HIS REFERRAL AND WILL HAVE THE CLINICAL TEAM LOOK AT IT Initialized on 05/07/23 13:17 - END OF NOTE 05/07/23 11:59 Case Management Note by Liz Garcia PATIENT MUCH MORE RECEPTIVE TO NURSING, CASE MANAGEMENT AND OUR ASSISTANCE. PATIENT UNDERSTANDS HIS COOPERATION WITH PT/OT WILL BE REQUIRED FOR HIM TO GO TO REHAB. PATIENT AGREEABLE Initialized on 05/07/23 11:59 - END OF NOTE 05/07/23 11:23 Case Management Note by Liz Garcia REFERRAL WITH ARIS FAXED TO [facility] Initialized on 05/07/23 11:23 - END OF NOTE 05/07/23 11:05 Case Management Note by Liz Garcia PAPERWORK COMPLETED- NO LEVEL II REQUIRED. COPIES PLACED ON CHART Initialized on 05/07/23 11:05 - END OF NOTE <MARA MOY - Last Filed: 05/07/23 14:37> Assessment/Plan (1) Wound dehiscence Current Visit: Yes Status: Acute Code(s): T81.30XA - DISRUPTION OF WOUND, UNSPECIFIED, INITIAL ENCOUNTER (2) Acute osteomyelitis of toe of right foot Current Visit: No Status: Acute Code(s): M86.171 - OTHER ACUTE OSTEOMYELITIS, RIGHT ANKLE AND FOOT (3) Cellulitis of great toe, right Current Visit: No Status: Acute Code(s): L03.031 - CELLULITIS OF RIGHT TOE (4) Hypertension Current Visit: No Status: Chronic Qualifiers: Hypertension type: primary hypertension Qualified Code(s): I10 - Essential (primary) hypertension Code(s): I10 - ESSENTIAL (PRIMARY) HYPERTENSION (5) Nausea Current Visit: No Status: Acute Code(s): R11.0 - NAUSEA (6) Nicotine dependence Current Visit: No Status: Chronic Qualifiers: Nicotine product type: cigarettes Code(s): F17.200 - NICOTINE DEPENDENCE, UNSPECIFIED, UNCOMPLICATED (7) Peripheral neuropathy Current Visit: No Status: Chronic Qualifiers: Peripheral neuropathy type: polyneuropathy associated with underlying disease Qualified Code(s): G63 - Polyneuropathy in diseases classified elsewhere Code(s): G62.9 - POLYNEUROPATHY, UNSPECIFIED (8) Type 2 diabetes mellitus Current Visit: No Status: Chronic Qualifiers: Diabetes mellitus strategic partnership manager insulin use: with fci use Diabetes mellitus complication status: with circulatory complication Diabetes mellitus complication detail: with peripheral angiopathy with gangrene Qualified Code(s): E11.52 - Type 2 diabetes mellitus with diabetic peripheral angiopathy with gangrene; Z79.4 - senior care (current) use of insulin (9) Chronic alcohol use Current Visit: Yes Status: Acute Code(s): F10.90 - ALCOHOL USE, UNSPECIFIED, UNCOMPLICATED (10) History of chronic constipation Current Visit: Yes Status: Acute Code(s): Z87.19 - PERSONAL HISTORY OF OTHER DISEASES OF THE DIGESTIVE SYSTEM <WADE MAN - Last Filed: 05/07/23 11:25> (1) Wound dehiscence Current Visit: Yes Status: Acute Code(s): T81.30XA - DISRUPTION OF WOUND, UNSPECIFIED, INITIAL ENCOUNTER <MARA MOY - Last Filed: 05/07/23 14:37> Telemedicine Encounter - Telemedicine Encounter Telemedicine Encounter: The entirety of this encounter was performed via Telemedicine" Assessment/Plan (1) Wound dehiscence Current Visit: Yes Status: Acute Assessment & Plan: 73-year-old man with history of type 2 diabetes and recurrent diabetic foot infections amputations, here with dehiscence of the wound from his right first toe amputation on 03/23. ## Wound infection patient continues to have severe drainage around the wound. He was prescribed an outpatient course of Levaquin without improvement. Partially secondary to wound dehiscence (see below), but has had failure of outpatient management and needs persistent IV antibiotics. Started on cefazolin IV Follow-up improvement in appearance of wound ## Wound dehiscence secondary to poor compliance with weight bearing restrictions, as well as some increased edema secondary to venous insufficiency. He has difficulty keeping off of his foot, as well as keeping his leg elevated to help with the venous patency. Encourage patient to keep foot elevated to reduce swelling Continue wound care Continue Lasix to help with removing fluid Non-weight bearing to the right foot - Podiatry consulted and providing wound care ## Type 2 diabetes overall poorly controlled, with hemoglobin A1c of 8.4. Glucose continues to run in the mid 200s. Increase Lantus to 22 units QHS Continue home scheduled lispro 6 units QAC Continue moderate dose sliding scale insulin Continue home Jardiance 25 mg daily ## Hypertension blood pressure overall controlled. Continue amlodipine 10, Toprol-XL 12.5, Lasix 10 mg daily from home - BP stable #Other COPD Continue home Spiriva, Advair, and PRN albuterol - Stable #Nicotine dependence- - Advised cessation - Nicotine patch # alcohol dependence- Reports he drinks on average 2-3 beers daily - No active withdrawal sxs - continue to monitor # chronic constipation- - Continue home use of MOM and Lactulose # peripheral neuropathy - Chronic r/t DM and wound # nausea - resolved CODE STATUS: Full code Prophylaxis: Lovenox 40 daily Diet: Diabetic D/C plan - [facility] probably in 2 days if wound improved <WADE MAN - Last Filed: 05/07/23 11:25> - Telemedicine Encounter Telemedicine Encounter: I have personally seen and examined patient and discussed care with Wade Man NP and reviewed pertinent clinical data including history, physical, and diagnostic findings. I agree with the assessment, and treatment plan as described in her original note. Please see below for my summary of findings and any additional assessment and plan, as well as any meaningful corrections or explanations of their note. My portion of visit was conducted entirely via telemedicine, to which patient consented. 73-year-old man with diabetes, here with right toe amputation wound dehiscence and suspected infection. Remains on Ancef, more aggressive wound care by p odiatry Dr. Loco. We will continue IV antibiotics and wound care. If continues to improve, likely plan on discharge to SNF for continued rehab and wound care. Mara Moy MD, PhD Internal Medicine Hospitalist [facility] <MARA MOY - Last Filed: 05/07/23 14:37>
--- NOTE | 2023-05-07 17:53 | PCM.NOTE ---
Date and Time: 05/07/231747 Subjective Assessment: Doing well in bed leg elevated this afternoon Physical Exam - Neuro Neurologic: Epicritic and protopathic (absent) - Vascular Peripheral Pulses: Posterior tibialis: 2+, Dorsalis-Pedis: 0 Capillary Refill Time: < 3 seconds Hair Growth: Symmetrical and Bilateral Varicosities: Positive Edema: Pitting Edema Degree: 2+ Skin: Supple, not atrophic Skin Temperature: Warm to touch - Narrative Narrative Physical Exam: Podiatry Physical Exam OBJECTIVE DATA Vital Signs: Vital Signs - 24 hr Temp Pulse Resp BP Pulse Ox 05/07/23 16:00 97.3 F 86 16 150/73 91 L 05/07/23 14:49 81 14 92 L 05/07/23 11:24 97.1 F 73 16 134/65 91 L 05/07/23 10:45 88 16 93 L 05/07/23 07:14 97.1 F 80 16 89/55 93 L 05/07/23 06:31 80 16 93 L 05/07/23 03:59 97.4 F 67 20 141/73 95 05/06/23 23:32 97.3 F 69 19 142/73 97 05/06/23 19:41 97.6 F 71 20 126/62 92 L 05/06/23 18:21 81 18 92 L Pain Assessment - Last Documented Pain Intensity 4 Pain Scale Used 0-10 Pain Scale Intake and Output: Intake & Output 05/05/23 05/06/23 05/07/23 05/08/23 11:59 11:59 11:59 11:59 Intake Total 1340 1832 480 Output Total 750 Balance 590 1832 480 Weight 77.3 kg Lab Results: Lab Results-Last 24 Hours 05/07/23 05/07/23 Range/Units 04:29 04:29 WBC 6.5 (4.0-10.5) x10^3/uL RBC 4.76 (4.1-5.6) x10^6/uL Hgb 13.1 (12.5-18.0) g/dL Hct 41.1 L (42-50) % MCV 86.3 (78-100) fL MCH 27.5 (26-32) pg MCHC 31.9 L (32-36) g/dL RDW 13.4 (11.5-14.0) % Plt Count 435 (150-450) x10^3/uL MPV 9.7 (7.5-11.0) fL Gran % 63.0 (36.0-66.0) % Immature Gran % (Auto) 0.3 (0.00-0.4) % Nucleat RBC Rel Count 0.0 (0.00-0.1) % Eos # (Auto) 0.26 (0-0.5) x10^3/uL Immature Gran # (Auto) 0.02 (0.00-0.03) x10^3u/L Absolute Lymphs (auto) 1.59 (1.0-4.6) x10^3/uL Absolute Monos (auto) 0.49 (0.0-1.3) x10^3/uL Absolute Nucleated RBC 0.00 (0.00-0.01) x10^3u/L Lymphocytes % 24.3 (24.0-44.0) % Monocytes % 7.5 (0.0-12.0) % Eosinophils % 4.0 (0.00-5.0) % Basophils % 0.9 (0.0-0.4) % Absolute Granulocytes 4.11 (1.4-6.9) x10^3/uL Basophils # 0.06 (0-0.4) x10^3/uL Sodium 139 (137-145) mmol/L Potassium 3.8 (3.5-5.1) mmol/L Chloride 105 (98-107) mmol/L Carbon Dioxide 25 (22-30) mmol/L Anion Gap 12.5 (5-15) MEQ/L BUN 29 H (9-20) mg/dL Creatinine 0.60 L (0.66-1.25) mg/dL Estimated GFR > 60.0 ML/MIN Glucose 126 H (74-106) mg/dL Calcium 8.9 (8.4-10.2) mg/dL Total Bilirubin 0.30 (0.2-1.3) mg/dL AST 17 (17-59) U/L ALT 15 (0-50) U/L Alkaline Phosphatase 96 (38-126) U/L Serum Total Protein 7.5 (6.3-8.2) g/dL Albumin 3.7 (3.5-5.0) g/dL Multi-Disciplinary Progress Notes: Multi-Disciplinary Progress Notes 05/07/23 13:17 Case Management Note by Liz Garcia S/W [facility]- THEY HAVE RECEIVED HIS REFERRAL AND WILL HAVE THE CLINICAL TEAM LOOK AT IT Initialized on 05/07/23 13:17 - END OF NOTE 05/07/23 11:59 Case Management Note by Liz Garcia PATIENT MUCH MORE RECEPTIVE TO NURSING, CASE MANAGEMENT AND OUR ASSISTANCE. P ATIENT UNDERSTANDS HIS COOPERATION WITH PT/OT WILL BE REQUIRED FOR HIM TO GO TO REHAB. PATIENT AGREEABLE Initialized on 05/07/23 11:59 - END OF NOTE 05/07/23 11:23 Case Management Note by Liz Garcia REFERRAL WITH [facility]IS FAXED TO [facility] Initialized on 05/07/23 11:23 - END OF NOTE 05/07/23 11:05 Case Management Note by Liz Garcia PAPERWORK COMPLETED- NO LEVEL II REQUIRED. COPIES PLACED ON CHART Initialized on 05/07/23 11:05 - END OF NOTE Assessment/Plan (1) Cellulitis of great toe, right Current Visit: No Status: Acute Assessment & Plan: Patient examination and evaluation Patient progressing at this time without complication Continue weight bearing protocol as prescribed. Continue Infection prophylaxis as prescribed. Continue DVT prophylaxis as prescribed. Unna boot for post operative venous insufficiency and localized edema Patient demonstrating indications of severe venous insufficiency with maceration of the wound. Recommend placement in fpc facility on discharge Significant improvement to wound maceration however previous maceration has left wound with nonviable and necrotic margins. Will proceed with bedside debridement and delayed primary closure tomorrow before noon. Patient has been advised to discontinue nicotine products as well as remain nonweightbearing during this period of time elevation of the extremities of the outpost importance in resolving this issue going forward We will follow-up with him tomorrow Code(s): L03.031 - CELLULITIS OF RIGHT TOE (2) Acute osteomyelitis of toe of right foot Current Visit: No Status: Acute Code(s): M86.171 - OTHER ACUTE OSTEOMYELITIS, RIGHT ANKLE AND FOOT (3) Type 2 diabetes mellitus Current Visit: No Status: Chronic Qualifiers: Diabetes mellitus fpc insulin use: with fpc use Diabetes mellitus complication status: with circulatory complication Diabetes mellitus complication detail: with peripheral angiopathy with gangrene Qualified Code(s): E11.52 - Type 2 diabetes mellitus with diabetic peripheral angiopathy with gangrene; 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
[2023-05-07] MEDS: Lantus Insulin SQ SCH (21:03)
[2023-05-07] MEDS: MILK OF MAGNESIA 30 ML PO SCH (21:05)
[2023-05-07] MEDS: LACTULOSE 20 GM/30ML UD CUP PO SCH (21:05)
[2023-05-07] MEDS: ZOCOR 20MG PO SCH (21:05)
[2023-05-08] MEDS: ULTRAM 50 MG PO PRN ×4 (02:45→21:01)
[2023-05-08 04:53] LABS: Absolute Neutrophil Ct (ANC) 7.61 x10^3/uL (1.4-6.9); BASOPHIL % 0.6 % (0.0-0.4); Basophil (Absolute #) 0.06 x10^3/uL (0-0.4); Eosinophil % 2.4 % (0.00-5.0); Eosinophil (Absolute #) 0.25 x10^3/uL (0-0.5); Hemoglobin 12.4 g/dL (12.5-18.0); IMMATURE GRAN # 0.04 x10^3u/L (0.00-0.03); IMMATURE GRAN % 0.4 % (0.00-0.4); Lymphocyte (Absolute #) 1.95 x10^3/uL (1.0-4.6); Lymphocytes % 18.5 % (24.0-44.0); Mean Cell Volume 86.9 fL (78-100); Mean Corpuscular Hemoglobin 27.6 pg (26-32); Mean Corpuscular Hgb Concent. 31.8 g/dL (32-36); Mean Platelet Volume 9.4 fL (7.5-11.0); Monocyte (Absolute #) 0.62 x10^3/uL (0.0-1.3); Monocytes % 5.9 % (0.0-12.0); Neutrophil % 72.2 % (36.0-66.0); Platelet Count 437 x10^3/uL (150-450); Red Blood Count 4.49 x10^6/uL (4.1-5.6); Red Cell Distribution Width 13.6 % (11.5-14.0); White Blood Count 10.5 x10^3/uL (4.0-10.5)
[2023-05-08] MEDS: KEFZOL 1 GM/50 ML PREMIX** 1 GM/50 ML IVPB IV SCH ×3 (05:28→21:01)
[2023-05-08] MEDS: TYLENOL 325 MG PO PRN ×3 (05:28→19:36)
[2023-05-08 05:48] LABS: ALBUMIN 3.7 g/dL (3.5-5.0); ALKALINE PHOSPHATASE 90 U/L (38-126); ANION GAP 11.7 MEQ/L (5-15); BLOOD UREA NITROGEN 28 mg/dL (9-20); CHLORIDE 104 mmol/L (98-107); Calcium 8.8 mg/dL (8.4-10.2); Carbon Dioxide 26 mmol/L (22-30); Creatinine 1 0.68 mg/dL (0.66-1.25); EST GLOMERULAR FILTRATION RATE > 60.0 ML/MIN; Glucose 94 mg/dL (74-106); Potassium 4.1 mmol/L (3.5-5.1); SGOT/AST 21 U/L (17-59); SGPT/ALT 17 U/L (0-50); SODIUM 138 mmol/L (137-145); Total Protein 7.5 g/dL (6.3-8.2)
[2023-05-08] MEDS: Advair Hfa 115/21 Common canister IH SCH ×2 (07:09→18:58)
[2023-05-08] MEDS: Spiriva 18 Mcg/Cap Inhaler IH SCH (07:09)
[2023-05-08] MEDS: VENTOLIN COMMON CANISTER IH SCH ×4 (07:10→18:59)
[2023-05-08] MEDS: HUMALOG SQ SCH ×3 (08:10→17:07)
[2023-05-08] MEDS: Toprol-Xl 25MG Tablets PO SCH (09:11)
[2023-05-08] MEDS: LASIX 20 MG PO SCH (09:12)
[2023-05-08] MEDS: NORVASC 5 MG PO SCH (09:14)
[2023-05-08] MEDS: VITAMIN D PO SCH (09:14)
[2023-05-08] MEDS: JARDIANCE PO SCH (09:19)
[2023-05-08] MEDS: ENOXAPARIN SODIUM SQ SCH (09:48)
[2023-05-08] MEDS: Nicoderm CQ 21 MG TOP SCH (09:52)
--- NOTE | 2023-05-08 10:49 | PCM.NOTE ---
Date and Time: 05/08/23 1032 Subjective Assessment: Mr. Wesley 73-year-old man with diabetes, here with right toe amputation wound dehiscence and suspected infection. Remains on Ancef, more aggressive wound care by podiatry Dr. Loco. Dressings changed this morning by podiatry in room. Plan is to continue IV antibiotics and wound care. If he continues to improve, likely plan on discharge to SNF for continued rehab and wound care. Plan was to go to [facility] but they have no water currently. Therefore case management is working on other placement at this time. Discussed again the importance of keeping foot elevated and smoking cessation for wound healing. <WADE MAN - Last Filed: 05/08/23 10:58> Date and Time: 05/08/23 1405 <MARA MOY - Last Filed: 05/08/23 14:06> - Review of Systems Constitutional: No Fever, No Chills Eyes: No Symptoms Ears, Nose, & Throat: No Symptoms Respiratory: No Cough, No Short Of Breath Cardiac: No Chest Pain, No Edema, No Syncope Abdominal/Gastrointestinal: No Abdominal Pain, No Nausea, No Vomiting, No Diarrhea Genitourinary Symptoms: No Dysuria Musculoskeletal: No Back Pain, No Neck Pain Skin: Other (right foot and leg wrapped ), No Rash Neurological: No Dizziness, No Focal Weakness, No Sensory Changes Psychological: No Symptoms Endocrine: No Symptoms Hematologic/Lymphatic: No Symptoms Immunological/Allergic: No Symptoms <WADE MAN - Last Filed: 05/08/23 10:58> Objective Exam General Appearance: no apparent distress, alert Neurologic Exam: alert, oriented x 3, cooperative, normal mood/affect, nml cerebellar function, sensation nml, No motor deficits Skin Exam: normal color, warm, dry, other (right and leg wrapped. Please refer to podiatry note for further detail.) Wound Assessment: Skin/Wound Assessment Wound/Incision Assessment Start: 05/05/23 10:16 Text: Status: Active Freq: Q6H Protocol: Document 05/08/23 08:00 CHAVEZELOY (Rec: [facility]08[facility]23 09:09 [id number] Wound/Incision Assessment Right Foot Wound Assessment Shift Assessment Wound Type Amputation Wound Stage Non Pressure Wound Dressing Status Dry & Intact Secondary Dressing Elastic Bandage Comment post op wound right foot, right great toe removed . Dr St dressed the wound, unable to assess at this time. Wound Photo Photo Taken Yes Comment: Picture found in chart Eye Exam: PERRL, EOMI, eyes nml inspection Ears, Nose, Throat Exam: normal ENT inspection, pharynx normal, moist mucous membranes Neck Exam: normal inspection, non-tender, supple, full range of motion Respiratory Exam: normal breath sounds, lungs clear, No respiratory distress Cardiovascular Exam: regular rate/rhythm, normal heart sounds Gastrointestinal/Abdomen Exam: soft, No tenderness, No mass Extremity Exam: normal inspection, normal range of motion Back Exam: normal inspection, normal range of motion, No CVA tenderness, No vertebral tenderness Male Genitalia Exam: deferred Rectal Exam: deferred <WADE MAN - Last Filed: 05/08/23 10:58> Wound Assessment: Skin/Wound Assessment Wound/Incision Assessment Start: 05/05/23 10:16 Text: Status: Active Freq: Q6H Protocol: Document 05/08/23 08:00 CHAVEZELOY (Rec: 05/08/23 09:09 [facility] [id number]) Wound/Incision Assessment Right Foot Wound Assessment Shift Assessment Wound Type Amputation Wound Stage Non Pressure Wound Dressing Status Dry & Intact Secondary Dressing Elastic Bandage Comment post op wound right foot, right great toe removed . Dr St dressed the wound, unable to assess at this time. Wound Photo Photo Taken Yes Comment: Picture found in chart <MARA MOY - Last Filed: 05/08/23 14:06> OBJECTIVE DATA Vital Signs: Vital Signs - 24 hr Temp Pulse Resp BP Pulse Ox 05/08/23 07:44 97.3 F 83 19 112/57 94 L 05/08/23 07:18 83 16 90 L 05/08/23 04:00 97.1 F 88 22 145/64 94 L 05/08/23 00:00 97.7 F 97 H 20 138/67 95 05/07/23 20:00 97.7 F 100 H 22 106/53 95 05/07/23 18:46 87 98 05/07/23 16:00 97.3 F 86 16 150/73 91 L 05/07/23 14:49 81 14 92 L 05/07/23 11:24 97.1 F 73 16 134/65 91 L 05/07/23 10:45 88 16 93 L Pain Assessment - Last Documented Pain Intensity 8 Pain Scale Used 0-10 Pain Scale Intake and Output: Intake & Output 05/05/23 05/06/23 05/07/23 05/08/23 11:59 11:59 11:59 11:59 Intake Total 1340 1832 840 Output Total 750 Balance 590 1832 840 Weight 77.3 kg Lab Results: Lab Results-Last 24 Hours 05/08/23 05/08/23 Range/Units 04:51 04:51 WBC 10.5 (4.0-10.5) x10^3/uL RBC 4.49 (4.1-5.6) x10^6/uL Hgb 12.4 L (12.5-18.0) g/dL Hct 39.0 L (42-50) % MCV 86.9 (78-100) fL MCH 27.6 (26-32) pg MCHC 31.8 L (32-36) g/dL RDW 13.6 (11.5-14.0) % Plt Count 437 (150-450) x10^3/uL MPV 9.4 (7.5-11.0) fL Gran % 72.2 H (36.0-66.0) % Immature Gran % (Auto) 0.4 (0.00-0.4) % Nucleat RBC Rel Count 0.0 (0.00-0.1) % Eos # (Auto) 0.25 (0-0.5) x10^3/uL Immature Gran # (Auto) 0.04 H (0.00-0.03) x10^3u/L Absolute Lymphs (auto) 1.95 (1.0-4.6) x10^3/uL Absolute Monos (auto) 0.62 (0.0-1.3) x10^3/uL Absolute Nucleated RBC 0.00 (0.00-0.01) x10^3u/L Lymphocytes % 18.5 L (24.0-44.0) % Monocytes % 5.9 (0.0-12.0) % Eosinophils % 2.4 (0.00-5.0) % Basophils % 0.6 (0.0-0.4) % Absolute Granulocytes 7.61 H (1.4-6.9) x10^3/uL Basophils # 0.06 (0-0.4) x10^3/uL Sodium 138 (137-145) mmol/L Potassium 4.1 (3.5-5.1) mmol/L Chloride 104 (98-107) mmol/L Carbon Dioxide 26 (22-30) mmol/L Anion Gap 11.7 (5-15) MEQ/L BUN 28 H (9-20) mg/dL Creatinine 0.68 (0.66-1.25) mg/dL Estimated GFR > 60.0 ML/MIN Glucose 94 (74-106) mg/dL Calcium 8.8 (8.4-10.2) mg/dL Total Bilirubin 0.30 (0.2-1.3) mg/dL AST 21 (17-59) U/L ALT 17 (0-50) U/L Alkaline Phosphatase 90 (38-126) U/L Serum Total Protein 7.5 (6.3-8.2) g/dL Albumin 3.7 (3.5-5.0) g/dL Multi-Disciplinary Progress Notes: Multi-Disciplinary Progress Notes 05/08/23 10:17 Case Management Note by Liz Garcia [facility] HAS ACCEPTED PATIENT BUT THEY CURRENTLY HAVE A WATER MAIN BREAK- THEY WILL BE UNABLE TO ACCEPT PATIENT UNTIL AT LEAST THURSDAY. S/W PATIENT- WILL TRY OTHER FACILITIES THAT ALLOW SMOKING AND HAVE TRANSPORTATION FOR PATENT BACK AND FORTH TO [facility]. REFERRAL SENT TO [facility]- DO NOT ALLOW SMOKING ON [address]- NO SMOKING COUNSELOR- NO SMOKING Initialized on 05/08/23 10:17 - END OF NOTE 05/08/23 08:27 Case Management Note by Liz Garcia FOLLOWED UP WITH [facility] ON REFERRAL- NO ANSWER-LM Initialized on 05/08/23 08:27 - END OF NOTE 05/07/23 13:17 Case Management Note by Liz Garcia S/W [facility]- THEY HAVE RECEIVED HIS REFERRAL AND WILL HAVE THE CLINICAL TEAM LOOK AT IT Initialized on 05/07/23 13:17 - END OF NOTE 05/07/23 11:59 Case Management Note by Liz Garcia PATIENT MUCH MORE RECEPTIVE TO NURSING, CASE MANAGEMENT AND OUR ASSISTANCE. PATIENT UNDERSTANDS HIS COOPERATION WITH PT/OT WILL BE REQUIRED FOR HIM TO GO TO REHAB. PATIENT AGREEABLE Initialized on 05/07/23 11:59 - END OF NOTE 05/07/23 11:23 Case Management Note by Liz Garcia REFERRAL WITH [facility] FAXED TO [facility] Initialized on 05/07/23 11:23 - END OF NOTE 05/07/23 11:05 Case Management Note by Liz Garcia PAPERWORK COMPLETED- NO LEVEL II REQUIRED. COPIES PLACED ON CHART Initialized on 05/07/23 11:05 - END OF NOTE <WADE MAN - Last Filed: 05/08/23 10:58> Vital Signs: Vital Signs - 24 hr Temp Pulse Resp BP Pulse Ox 05/08/23 11:26 97.7 F 87 19 136/69 93 L 05/08/23 11:08 81 16 91 L 05/08/23 07:44 97.3 F 83 19 112/57 94 L 05/08/23 07:18 83 16 90 L 05/08/23 04:00 97.1 F 88 22 145/64 94 L 05/08/23 00:00 97.7 F 97 H 20 138/67 95 05/07/23 20:00 97.7 F 100 H 22 106/53 95 05/07/23 18:46 87 98 05/07/23 16:00 97.3 F 86 16 150/73 91 L 05/07/23 14:49 81 14 92 L Pain Assessment - Last Documented Pain Intensity 8 Pain Scale Used 0-10 Pain Scale Intake and Output: Intake & Output 05/06/23 05/07/23 05/08/23 05/09/23 11:59 11:59 11:59 11:59 Intake Total 1340 1832 840 120 Output Total 750 Balance 590 1832 840 120 Weight 77.3 kg Lab Results: Lab Results-Last 24 Hours 05/08/23 05/08/23 Range/Units 04:51 04:51 WBC 10.5 (4.0-10.5) x10^3/uL RBC 4.49 (4.1-5.6) x10^6/uL Hgb 12.4 L (12.5-18.0) g/dL Hct 39.0 L (42-50) % MCV 86.9 (78-100) fL MCH 27.6 (26-32) pg MCHC 31.8 L (32-36) g/dL RDW 13.6 (11.5-14.0) % Plt Count 437 (150-450) x10^3/uL MPV 9.4 (7.5-11.0) fL Gran % 72.2 H (36.0-66.0) % Immature Gran % (Auto) 0.4 (0.00-0.4) % Nucleat RBC Rel Count 0.0 (0.00-0.1) % Eos # (Auto) 0.25 (0-0.5) x10^3/uL Immature Gran # (Auto) 0.04 H (0.00-0.03) x10^3u/L Absolute Lymphs (auto) 1.95 (1.0-4.6) x10^3/uL Absolute Monos (auto) 0.62 (0.0-1.3) x10^3/uL Absolute Nucleated RBC 0.00 (0.00-0.01) x10^3u/L Lymphocytes % 18.5 L (24.0-44.0) % Monocytes % 5.9 (0.0-12.0) % Eosinophils % 2.4 (0.00-5.0) % Basophils % 0.6 (0.0-0.4) % Absolute Granulocytes 7.61 H (1.4-6.9) x10^3/uL Basophils # 0.06 (0-0.4) x10^3/uL Sodium 138 (137-145) mmol/L Potassium 4.1 (3.5-5.1) mmol/L Chloride 104 (98-107) mmol/L Carbon Dioxide 26 (22-30) mmol/L Anion Gap 11.7 (5-15) MEQ/L BUN 28 H (9-20) mg/dL Creatinine 0.68 (0.66-1.25) mg/dL Estimated GFR > 60.0 ML/MIN Glucose 94 (74-106) mg/dL Calcium 8.8 (8.4-10.2) mg/dL Total Bilirubin 0.30 (0.2-1.3) mg/dL AST 21 (17-59) U/L ALT 17 (0-50) U/L Alkaline Phosphatase 90 (38-126) U/L Serum Total Protein 7.5 (6.3-8.2) g/dL Albumin 3.7 (3.5-5.0) g/dL Multi-Disciplinary Progress Notes: Multi-Disciplinary Progress Notes 05/08/23 12:45 Case Management Note by Liz Garcia Addendum entered by Liz Garcia 05/08/23 13:06: *[facility] ([facility]) Original Note: [facility] HAS ACCEPTED PATIENT AND CAN ADMIT PATIENT 05/09/23. PATIENT AGREEABLE WITH PLAN. PATIENT REPORTS HIS SISTER WILL TAKE HIM TO FACILITY. PATIENT STATED HE WANTED TO STOP AT HOME TO GRAB SOME OF HIS BELONGINGS. HE WAS ADVISED IT IS PREFERRED FOR HIM TO GO TO STRAIGHT TO FACILITY WHEN DISCHARGED. HE WAS GIVEN INFORMATION ON FACILITY ADDRESS AND CONTACT INFO. DR. ST AWARE- OKAY WITH PLAN FOR DC 05/09- NURSING MISC ORDER ENTERED WITH GA ORDERS FROM PODIATRY UNABLE TO MAKE FOLLOW UP APT- OFFICE CLOSED- IT WAS PLACED ON HIS DC INSTRUCT IONS TO FOLLOW UP [facility] BUT I ALSO LEFT A VOICEMAIL ON PODIATRY COOK ICE CREAM PHONE FOR HER TO FOLLOW UP WITH [facility] WITH THE APPOINTMENT. DR. MOY NOTIFIED OF PLANS WELL Initialized on 05/08/23 12:45 - END OF NOTE 05/08/23 10:17 Case Management Note by Liz Garcia [facility] HAS ACCEPTED PATIENT BUT THEY CURRENTLY HAVE A WATER MAIN BREAK- THEY WILL BE UNABLE TO ACCEPT PATIENT UNTIL AT LEAST THURSDAY. S/W PATIENT- WILL TRY OTHER FACILITIES THAT ALLOW SMOKING AND HAVE TRANSPORTATION FOR PATENT BACK AND FORTH TO [facility]. REFERRAL SENT TO [facility]- DO NOT ALLOW SMOKING ON [address]- NO SMOKING COUNSELOR- NO SMOKING Initialized on 05/08/23 10:17 - END OF NOTE 05/08/23 08:27 Case Management Note by Liz Garcia FOLLOWED UP WITH [facility] ON REFERRAL- NO ANSWER-LM Initialized on 05/08/23 08:27 - END OF NOTE <MARA MOY - Last Filed: 05/08/23 14:06> Assessment/Plan (1) Wound dehiscence Current Visit: Yes Status: Acute Code(s): T81.30XA - DISRUPTION OF WOUND, UNSPECIFIED, INITIAL ENCOUNTER (2) Acute osteomyelitis of toe of right foot Current Visit: No Status: Acute Code(s): M86.171 - OTHER ACUTE OSTEOMYELITIS, RIGHT ANKLE AND FOOT (3) Cellulitis of great toe, right Current Visit: No Status: Acute Code(s): L03.031 - CELLULITIS OF RIGHT TOE (4) Hypertension Current Visit: No Status: Chronic Qualifiers: Hypertension type: primary hypertension Qualified Code(s): I10 - Essential (primary) hypertension Code(s): I10 - ESSENTIAL (PRIMARY) HYPERTENSION (5) Nausea Current Visit: No Status: Acute Code(s): R11.0 - NAUSEA (6) Nicotine dependence Current Visit: No Status: Chronic Qualifiers: Nicotine product type: cigarettes Code(s): F17.200 - NICOTINE DEPENDENCE, UNSPECIFIED, UNCOMPLICATED (7) Peripheral neuropathy Current Visit: No Status: Chronic Qualifiers: Peripheral neuropathy type: polyneuropathy associated with underlying disease Qualified Code(s): G63 - Polyneuropathy in diseases classified elsewhere Code(s): G62.9 - POLYNEUROPATHY, UNSPECIFIED (8) Type 2 diabetes mellitus Current Visit: No Status: Chronic Qualifiers: Diabetes mellitus terminal system operator insulin use: with terminal system operator use Diabetes mellitus complication status: with circulatory complication Diabetes mellitus complication detail: with peripheral angiopathy with gangrene Qualified Code(s): E11.52 - Type 2 diabetes mellitus with diabetic peripheral angiopathy with gangrene; Z79.4 - penitentiary (current) use of insulin (9) Chronic alcohol use Current Visit: Yes Status: Acute Code(s): F10.90 - ALCOHOL USE, UNSPECIFIED, UNCOMPLICATED (10) History of chronic constipation Current Visit: Yes Status: Acute Code(s): Z87.19 - PERSONAL HISTORY OF OTHER DISEASES OF THE DIGESTIVE SYSTEM <WADE MAN - Last Filed: 05/08/23 10:58> (1) Wound dehiscence Current Visit: Yes Status: Acute Code(s): T81.30XA - DISRUPTION OF WOUND, UNSPECIFIED, INITIAL ENCOUNTER <MARA MOY - Last Filed: 05/08/23 14:06> Telemedicine Encounter - Telemedicine Encounter Telemedicine Encounter: 1) Wound dehiscence Current Visit: Yes Status: Acute Assessment & Plan: 73-year-old man with history of type 2 diabetes and recurrent diabetic foot infections amputations, here with dehiscence of the wound from his right first toe amputation on 03/23. ## Wound infection patient continues to have severe drainage around the wound. He was prescribed an outpatient course of Levaquin without improvement. Partially secondary to wound dehiscence (see below), but has had failure of outpatient management and needs persistent IV antibiotics. Started on cefazolin IV Follow-up improvement in appearance of wound ## Wound dehiscence secondary to poor compliance with weight bearing restrictions, as well as some increased edema secondary to venous insufficiency. He has difficulty keeping off of his foot, as well as keeping his leg elevated to help with the venous patency. Encourage patient to keep foot elevated to reduce swelling Continue wound care Continue Lasix to help with removing fluid Non-weight bearing to the right foot - Podiatry consulted and providing wound care- reviewed note and agree with plan of care - Dressing changed by podiatry 05/08/23 - tramadol for pain PRN ## Type 2 diabetes overall poorly controlled, with hemoglobin A1c of 8.4. Glucose continues to run in the mid 200s. Lantus to 22 units QHS Continue home scheduled lispro 6 units QAC Continue moderate dose sliding scale insulin Continue home Jardiance 25 mg daily ## Hypertension blood pressure overall controlled. Continue amlodipine 10, Toprol-XL 12.5, Lasix 10 mg daily from home - BP stable #Other COPD Continue home Spiriva, Advair, and PRN albuterol - Stable #Nicotine dependence- - Advised cessation - Nicotine patch # alcohol dependence- Reports he drinks on average 2-3 beers daily - No active withdrawal sxs - continue to monitor # chronic constipation- - Continue home use of MOM and Lactulose # peripheral neuropathy - Chronic r/t DM and wound # nausea - resolved CODE STATUS: Full code Prophylaxis: Lovenox 40 daily Diet: Diabetic D/C plan - possible Thursday to rehab facility <WADE MAN - Last Filed: 05/08/23 10:58> - Telemedicine Encounter Telemedicine Encounter: I have personally seen and examined patient and discussed care with Wade Man NP and reviewed pertinent clinical data including history, physical, and diagnostic findings. I agree with the assessment, and treatment plan as described in her original note. Please see below for my summary of findings and any additional assessment and plan, as well as any meaningful corrections or explanations of their note. My portion of visit was conducted entirely via telemedicine, to which patient consented. 73-year-old man, here with poorly healing wound from first toe amputation as well as wound infection. Wound debrided by Dr. Loco today, with primary closure. Remains on Ancef, and will likely continue on a week of Levaquin at discharge. Main barriers to good wound healing continue to be patient smoking as well as bearing weight on the foot. We have continue to encourage patient to be strictly nonweightbearing to that foot, and to cease all smoking. If looks better tomorrow, will likely plan on discharging to rehab in [place]. Mara Moy MD, PhD Internal Medicine Hospitalist [facility] <MARA MOY - Last Filed: 05/08/23 14:06>
--- NOTE | 2023-05-08 15:37 | OP ---
SURGERY DATE/TIME: 05/08/2023 0800 PREOPERATIVE DIAGNOSES: 1) Diabetic foot ulcer. 2) Dehiscence of surgical wound. 3) Noncompliant with postoperative course. 4) Right foot pain. 5) Nicotine dependence. POSTOPERATIVE DIAGNOSES: 1) Diabetic foot ulcer. 2) Dehiscence of surgical wound. 3) Noncompliant with postoperative course. 4) Right foot pain. 5) Nicotine dependence. PROCEDURE: Complex closure of wound. SURGEON: Omar Loco DPM. COORDINATOR HOTELS: None. HEMOSTASIS: Pressure dressing. ESTIMATED BLOOD LOSS: Minimal. MATERIALS: 2-0 Vicryl, 3-0 Nylon. INJECTABLES: 10 cc of 1:1 mixture of 1% lidocaine plain and 0.5% bupivacaine plain injected in a Pan block-type fashion. INDICATION FOR SURGERY: William Wesley is a very pleasant 73-year-old male who is well known to my service for osteomyelitis and amputation to the great toe. The patient suffered dehiscence of his initial wound secondary to venous insufficiency and it was thought that it was too much tension on the wound as a result decided to proceed with a partial metatarsal head resection and if there was a possibility of dehiscence, we plan to proceed with abductor hallucis flap to protect the bone. At this time there is no residual signs of infection. However, the patient has been unable to discontinue smoking and is also having difficulty keeping off of his foot. As a result the patient has had a significant amount of venous insufficiency and there is significant amount of drainage to the wound. At this time the patient is amenable to proceeding with surgical intervention this is being performed at bedside secondary to the patient's neuropathy and low infectious potential. The patient understands all risks, complications and benefits of surgical intervention at this time including but not limited to infection, hematoma, seroma, possibility of delayed wound healing, nonwound healing, possibility of need for surgical intervention, possibility of amputation, possible loss of limb and possible loss of life. The patient understands all of these risks and wishes to proceed. DESCRIPTION OF PROCEDURE AND FINDINGS: The patient was prepped and draped in the typical sterile fashion and 10 cc block was injected in a Pan block-type fashion to the right foot. At this time the surgical wound was incised and full thickness flaps were taken down to the level of muscle. From that standpoint copious amounts of sterile saline were utilized to flush the surgical site. Necrotic wound margins were removed utilizing a 15 blade, curette and rongeurs. Following this, 2-0 Vicryl utilized to coapt the subcutaneous skin edges and 3-0 Nylon was utilized to coapt the skin edges in a horizontal mattress-type fashion. A dressing consisting of Betadine, Adaptic, 4x4 and an Unna boot was applied to the patient's right lower extremity following the case for postoperative compression. The patient handled the procedure without significant complication. Postoperative orders as indicated in the patient's inpatient chart.
[2023-05-08] MEDS: HUMALOG SQ PRN (17:07)
[2023-05-08] MEDS: ZOCOR 20MG PO SCH (21:01)
[2023-05-08] MEDS: Lantus Insulin SQ SCH (21:01)
[2023-05-08] MEDS: LACTULOSE 20 GM/30ML UD CUP PO SCH (21:02)
[2023-05-08] MEDS: MILK OF MAGNESIA 30 ML PO SCH (21:02)
[2023-05-09] MEDS: TYLENOL 325 MG PO PRN ×2 (00:44→07:40)
[2023-05-09] MEDS: ULTRAM 50 MG PO PRN (03:20)
[2023-05-09] MEDS: KEFZOL 1 GM/50 ML PREMIX** 1 GM/50 ML IVPB IV SCH (05:42)
[2023-05-09 06:50] VITALS: BP 161/70; PULSE 78; TEMP 97
[2023-05-09] MEDS: Spiriva 18 Mcg/Cap Inhaler IH SCH (07:25)
[2023-05-09] MEDS: Advair Hfa 115/21 Common canister IH SCH (07:25)
[2023-05-09] MEDS: VENTOLIN COMMON CANISTER IH SCH (07:25)
[2023-05-09 07:35] VITALS: RESP 20; O2SAT 94
[2023-05-09] MEDS: HUMALOG SQ SCH (08:16)
[2023-05-09] MEDS: VITAMIN D PO SCH (08:37)
[2023-05-09] MEDS: LASIX 20 MG PO SCH (08:37)
[2023-05-09] MEDS: NORVASC 5 MG PO SCH (08:37)
[2023-05-09] MEDS: JARDIANCE PO SCH (08:38)
[2023-05-09] MEDS: ENOXAPARIN SODIUM SQ SCH (08:39)
--- NOTE | 2023-05-10 06:46 | PCM.DS ---
Discharge Summary Date of Admission: 05/06/23 15:10 Date of Discharge: 05/09/23 Admitting Physician: MARA JONES MD Primary Care Provider: OSMAR JACKSON NP Allergies Allergies No Known Drug Allergies Allergy (Verified 04/26/23 20:01) Hospital Summary - Hospital Course Hospital Course: Improved with IV antibiotics and rest - Vitals & Intake/Output Vital Signs: Vital Signs Temperature 97.0 F 05/09/23 06:48 Pulse Rate 78 05/09/23 07:34 Respiratory Rate 20 05/09/23 07:34 Blood Pressure 161/70 05/09/23 06:48 O2 Sat by Pulse Oximetry 94 L 05/09/23 07:34 Intake & Output: Intake & Output 05/07/23 05/08/23 05/09/23 05/10/23 11:59 11:59 11:59 11:59 Intake Total 0672 347 8564 Balance 7021 819 8238 Weight 77.3 kg - Lab Result Diagrams: 05/08/23 04:51 05/08/23 04:51 Micro Results-Entire Visit: Accuchecks Date 05/09/23 Time 06:47 - Procedures and Test Procedures and Tests throughout Hospitalization: Therapy Orders & Screens 05/05/23 11:53 PT Eval & Treat ( Order) ONCE Reason for Eval:: cellulitis, non healing post surgical wound Diagnosis: cellulitis, post surgical non healing wound 05/05/23 14:30 Respiratory Therapy Assessment DAILY Comment: Diagnosis: cellulitis, post surgical non healing wound Discharge Exam Neurologic Exam: alert, oriented x 3, cooperative Neck Exam: normal inspection Respiratory Exam: normal breath sounds Cardiovascular Exam: normal heart sounds Gastrointestinal/Abdomen Exam: soft Final Diagnosis/Problem List - Final Discharge Diagnosis/Problem (1) Acute osteomyelitis of toe of right foot Status: Acute Assessment & Plan: Assessment & Plan: 73-year-old man with history of type 2 diabetes and recurrent diabetic foot infections amputations, here with dehiscence of the wound from his right first toe amputation on 03/23. ## Wound infection patient continues to have severe drainage around the wound. He was prescribed an outpatient course of Levaquin without improvement. Partially secondary to wound dehiscence (see below), but has had failure of outpatient management and needs persistent IV antibiotics. Started on cefazolin IV Follow-up improvement in appearance of wound ## Wound dehiscence secondary to poor compliance with weight bearing restrictions, as well as some increased edema secondary to venous insufficiency. He has difficulty keeping off of his foot, as well as keeping his leg elevated to help with the venous patency. Encourage patient to keep foot elevated to reduce swelling Continue wound care Continue Lasix to help with removing fluid Non-weight bearing to the right foot - Podiatry consulted and providing wound care- reviewed note and agree with plan of care - Dressing changed by podiatry 05/08/23 - tramadol for pain PRN ## Type 2 diabetes overall poorly controlled, with hemoglobin A1c of 8.4. Glucose continues to run in the mid 200s. Lantus to 22 units QHS Continue home scheduled lispro 6 units QAC Continue moderate dose sliding scale insulin Continue home Jardiance 25 mg daily ## Hypertension blood pressure overall controlled. Continue amlodipine 10, Toprol-XL 12.5, Lasix 10 mg daily from home - BP stable #Other COPD Continue home Spiriva, Advair, and PRN albuterol - Stable #Nicotine dependence- - Advised cessation - Nicotine patch # alcohol dependence- Reports he drinks on average 2-3 beers daily - No active withdrawal sxs - continue to monitor # chronic constipation- - Continue home use of MOM and Lactulose # peripheral neuropathy - Chronic r/t DM and wound # nausea - resolved CODE STATUS: Full code Prophylaxis: Lovenox 40 daily Diet: Diabetic D/C plan - possible Thursday to rehab facility Code(s): M86.171 - OTHER ACUTE OSTEOMYELITIS, RIGHT ANKLE AND FOOT Telemedicine Encounter - Telemedicine Encounter Telemedicine Encounter: The entirety of this encounter was performed via Telemedicine" - Discharge Disposition: DC TO ANY "OTHER" HALFWAY Condition: Stable Prescriptions: New Nicotine 21 mg [Nicoderm CQ 21 MG] 21 mg TOP Q24H10 patch Tramadol HCl 50 mg [Ultram 50 mg] 50 mg PO Q6H/PRN PRN tablet PRN Reason: Pain Levofloxacin [Levofloxacin 500 MG Tablet] 500 mg PO DAILY #10 tablet Continue Insulin Glargine,Hum.rec.anlog [Lantus] 18 unit SQ HS Insulin Aspart [Novolog] 6 unit SQ TIDWMEALS Tiotropium [place] [Spiriva Handihaler] 18 mcg IH DAILY Albuterol 8 gm Mdi Hfa [Ventolin Hfa MDI] 2 puff IH Q4H Amlodipine Besylate 5 mg [Norvasc 5 mg] 10 mg PO DAILY Metoprolol Succinate [Toprol Xl] 12.5 mg PO DAILY Empagliflozin [Jardiance] 25 mg PO DAILY Furosemide [Lasix] 10 mg PO DAILY Atorvastatin Calcium 20 mg PO HS Aspirin EC 325 mg [Ecotrin 325 MG] 325 mg PO DAILY #30 Budesonide/Formoterol Fumarate [Budesonide-Formoterol 160-4.5] 2 puffs IH BID Cholecalciferol (Vitamin D3) [Vitamin D] 1,000 unit PO DAILY Additional Instructions: HALFWAY ORDERS: ADMIT TO LONG TERM CARE 1999 BINA ADA DIET ACHS ACCU CHECKS PT/OT EVAL AND TREAT- SEE WTBEARING RESTRICTIONS SEE ATTACHED MED LIST PODIATRY ORDERS- -NON WTBEARING TO RIGHT FOOT -LEAVE DRESSING CLEAN DRY AND INTACT UNTIL THURSDAY -DRESSING CHANGES TWICE A WEEK BY FACILITY STARTING 05/11/23 FOLLOWS- TAKE DOWN DRESSING, CLEANSE WITH STERILE SALINE, ADAPTIC OVER INCISION, THEN IDODINE SOAKED GAUZE FOLLOWED BY DRY GAUZE. SECURE WITH MULTILAYER COMPRESSION DRESSING CONSISTING OF UNNA BOOT, KERLIX AND COBAN. -RX FOR NORCO SENT TO [facility] BY ALMA ROSA -SEE RX FOR LEVAQUIN X 10 DAYS -CONTINUE ASPIRIN 325 MG DAILY FOR DVT PROPHYLAXIS -FOLLOW WITH DR. ST ON Thursday05/13/23 REFERRAL WAS SENT TO [facility] TO SEE IF YOU QUALIFY FOR ANY HELP AT HOME. THEY WILL REACH OUT TO YOU. YOU CAN CONTACT THEM AT [phone] Follow up with: ALMA ROSA VAN DPM [ACTIVE STAFF] - 05/13/23 (PLEASE CALL FOR AN APPOINTMENT FOR 05/13/23) OSMAR JACKSON NP, RN [Primary Care Provider] -
== END 2023-05-09 08:50 | DRG 501 ==
LOC: MED SURG 09:32 → OBSVTOIN 05-06 15:10
PROVIDERS: ADMIT Internal Medicine; ATTEND Internal Medicine
PROC: 0JQQ0ZZ Repair Right Foot Subcutaneous Tissue and Fascia, Open Approach (ICD-10-PCS; principal; 2023-05-08)
PROC: 2W1LX6Z Compression of Right Lower Extremity using Pressure Dressing (ICD-10-PCS; 2023-05-08)
DX: M86.171 Other acute osteomyelitis, right ankle and foot (principal); E11.52 Type 2 diabetes mellitus with diabetic peripheral angiopathy with gangrene; T81.30XA Disruption of wound, unspecified, initial encounter; L03.031 Cellulitis of right toe; F17.200 Nicotine dependence, unspecified, uncomplicated; G62.9 Polyneuropathy, unspecified; I10 Essential (primary) hypertension; M79.671 Pain in right foot; E78.5 Hyperlipidemia, unspecified; K59.09 Other constipation; R11.0 Nausea; F10.90 Alcohol use, unspecified, uncomplicated; Z79.899 Other long term (current) drug therapy; Z20.828 Contact with and (suspected) exposure to other viral communicable diseases; Z79.4 Long term (current) use of insulin; Z85.038 Personal history of other malignant neoplasm of large intestine; Z91.148 Patient's other noncompliance with medication regimen for other reason
CPT/HCPCS: 13160; 29580; 36415; 80048; 80053; 82947; 83605; 84134; 85025; 85027; 85652; 86140; 94640; 94760; 97110; 97161; 99213; 99232; G0378; Q3014; J0690; J1650; J1817; A9270-GY

== ENCOUNTER 2023-07-24 08:48 | Inpatient (IN) | payer MEDICARE, OTHER ==
[~2023-07-24 08:48] MED LIST changes: -XYLOCAINE 1% HCL 20 ML MDV ONE; +Xylocaine 1% Vial 30 ML PF IJ ONE
[2023-07-24 09:21] LABS: Basophil (Absolute #) 0.08 x10^3/uL (0-0.4); Eosinophil % 4.3 % (0.00-5.0); Eosinophil (Absolute #) 0.36 x10^3/uL (0-0.5); Hematocrit 31.9 % (42-50); Hemoglobin 9.9 g/dL (12.5-18.0); IMMATURE GRAN # 0.02 x10^3u/L (0.00-0.03); IMMATURE GRAN % 0.2 % (0.00-0.4); Lymphocyte (Absolute #) 2.09 x10^3/uL (1.0-4.6); Lymphocytes % 25.1 % (24.0-44.0); Mean Cell Volume 87.9 fL (78-100); Mean Corpuscular Hemoglobin 27.3 pg (26-32); Monocyte (Absolute #) 0.48 x10^3/uL (0.0-1.3); Monocytes % 5.8 % (0.0-12.0); Neutrophil % 63.6 % (36.0-66.0); Platelet Count 426 x10^3/uL (150-450); Red Blood Count 3.63 x10^6/uL (4.1-5.6); White Blood Count 8.3 x10^3/uL (4.0-10.5)
[2023-07-24] MEDS ORDERED: Lactated Ringers 1,000 ML IV SCH (09:30)
[2023-07-24 09:36] LABS: ALBUMIN 4.2 g/dL (3.5-5.0); ALKALINE PHOSPHATASE 148 U/L (38-126); ANION GAP 11.2 MEQ/L (5-15); BLOOD UREA NITROGEN 30 mg/dL (9-20); CHLORIDE 104 mmol/L (98-107); Carbon Dioxide 26 mmol/L (22-30); EST GLOMERULAR FILTRATION RATE > 60.0 ML/MIN; Glucose 173 mg/dL (74-106); Potassium 4.3 mmol/L (3.5-5.1); SGOT/AST 26 U/L (17-59); SGPT/ALT 19 U/L (0-50); SODIUM 137 mmol/L (137-145); Total Protein 7.9 g/dL (6.3-8.2)
[2023-07-24] MEDS ORDERED: Versed 2 MG/2 ML Injection ONE (12:54)
[2023-07-24] MEDS ORDERED: Xylocaine-Mpf 2% 5 Ml Vial ONE (12:54)
[2023-07-24] MEDS ORDERED: SUBLIMAZE 100 MCG/2 ML ONE (12:55)
[2023-07-24] MEDS ORDERED: DIPRIVAN 200 MG/20 ML IV ONE ×2 (12:55→13:15)
[2023-07-24] MEDS ORDERED: PHENYLEPHRINE HCL ONE (13:42)
--- NOTE | 2023-07-24 13:57 | XRAY ---
Indication: Right transmetatarsal amputation. Intraoperative fluoroscopy provided for 5 seconds. 2 digital spot images submitted for interpretation demonstrates amputation all mid to distal metatarsals and all phalanges. Correlate with intraoperative findings/report.
[2023-07-24] MEDS ORDERED: MORPHINE SULFATE 2 MG INJ IV PRN (14:21)
[2023-07-24] MEDS ORDERED: NORCO 5/325 MG PO PRN (14:21)
--- NOTE | 2023-07-24 15:09 | PCM.HP ---
History of Present Illness - Chief Complaint Chief Complaint: osteomylitis of right foot Date: 07/24/23 History of Present Illness: is a 73 year old male with history of HLD, HTN, type 2 diabetes, right first toe osteomyelitis which required amputation on 03/[address] Loco admitted to the hospital for right foot transmetatarsal amputation, hospitalist team has been requested for medical management. Patient is s/p procedure and endorses right lower extremity pain. He is also requesting a nicotine patch. Plan is for IV abx and surgical closure next . Rehab on discharge. Patient afebrile, normotensive, and spo2 @ 92% on 2L, RA at baseline. Lab findings remarkable for hgb 9.9, BUN 30, and alk phos at 148. - Review of Systems Constitutional: No Symptoms Eyes: No Symptoms Ears, Nose, & Throat: No Symptoms Respiratory: No Symptoms Cardiac: No Symptoms Abdominal/Gastrointestinal: No Symptoms Genitourinary Symptoms: No Symptoms Musculoskeletal: Other (RLE pain ) Neurological: No Symptoms Psychological: No Symptoms Endocrine: No Symptoms Medications & Allergies Home Medications: Home Medication List Albuterol 8 gm Mdi Hfa [Ventolin Hfa MDI] 2 puff IH Q4H 03/18/23 [History Confirmed 07/21/23] Amlodipine Besylate 5 mg [Norvasc 5 mg] 10 mg PO DAILY 03/18/23 [History Confirmed 07/21/23] Atorvastatin Calcium 20 mg PO HS 03/18/23 [History Confirmed 07/21/23] Empagliflozin [Jardiance] 25 mg PO DAILY 03/18/23 [History Confirmed 07/21/23] Furosemide [Lasix] 10 mg PO DAILY 03/18/23 [History Confirmed 07/21/23] Insulin Aspart [Novolog] 6 unit SQ TIDWMEALS 03/18/23 [History Confirmed 07/21/23] Insulin Glargine,Hum.rec.anlog [Lantus] 18 unit SQ HS 03/18/23 [History Confirmed 07/21/23] Metoprolol Succinate [Toprol Xl] 12.5 mg PO DAILY 03/18/23 [History Confirmed 07/21/23] Tiotropium [place] [Spiriva Handihaler] 18 mcg IH DAILY 03/18/23 [History Confirmed 07/21/23] Aspirin EC 325 mg [Ecotrin 325 MG] 325 mg PO DAILY #30 03/27/23 [Rx Confirmed 07/21/23] Budesonide/Formoterol Fumarate [Budesonide-Formoterol 160-4.5] 2 puffs IH BID 05/05/23 [History Confirmed 07/21/23] Cholecalciferol (Vitamin D3) [Vitamin D] 1,000 unit PO DAILY 05/05/23 [History Confirmed 07/21/23] Allergies/Adverse Reactions: Allergies Allergy/AdvReac Type Severity Reaction Status Date / Time No Known Drug Allergies Allergy Verified 07/24/23 09:14 - Past Medical History Past Medical History: Yes Neurological History: No Pertinent History ENT History: Cataracts Cardiac History: Deep Vein Thrombosis, High Cholesterol, Hypertension Respiratory History: COPD Endocrine Medical History: Diabetes Type II Musculoskelatal History: No Pertinent History GI Medical History: Colorectal Cancer History: No Pertinent History Pyscho-Social History: No Pertinent History Male Reproductive Disorders: No Pertinent History - Past Surgical History Past Surgical History: Yes Neuro Surgical History: No Pertinent History Cardiac History: No Pertinent History Respiratory Surgery: No Pertinent History GI Surgical History: Colon Resection Genitourinary Surgical Hx: No Pertinent History Musculskeletal Surgical Hx: Amputation, Orthopedic Surgery Male Surgical History: No Pertinent History Other Surgical History: second digit on left foot amputated, left knee, colon cancer surgery, right ear, right great toe amputationm bypass to right leg - Social History Smoking Status: Current every day smoker How long have you smoked: many years Exposure to second hand smoke: Yes Alcohol: Daily Drug Use: none Significant Family History: diabetes - Physical Exam Vital Signs: Vital Signs - 24 hr Temp Pulse Resp BP Pulse Ox 07/24/23 09:54 98.1 F 92 H 18 110/61 94 L 07/24/23 09:30 98.1 F 92 H 18 110/61 94 L General Appearance: no apparent distress Neurologic Exam: alert, oriented x 3, cooperative Eye Exam: PERRL/EOMI Neck Exam: normal inspection Respiratory Exam: crackles/rales Cardiovascular Exam: regular rate/rhythm, normal heart sounds Gastrointestinal/Abdomen Exam: soft, normal bowel sounds Rectal Exam: deferred Extremity Exam: amputations Skin Exam: other (surgical wound RLE covered in dressing) Results - Labs Lab/Micro Results: Lab Results-Last 24 Hours 07/24/23 07/24/23 07/24/23 Range/Units 09:19 09:19 14:20 WBC 8.3 (4.0-10.5) x10^3/uL RBC 3.63 L (4.1-5.6) x10^6/uL Hgb 9.9 L (12.5-18.0) g/dL Hct 31.9 L (42-50) % MCV 87.9 (78-100) fL MCH 27.3 (26-32) pg MCHC 31.0 L (32-36) g/dL RDW 16.0 H (11.5-14.0) % Plt Count 426 (150-450) x10^3/uL MPV 10.0 (7.5-11.0) fL Gran % 63.6 (36.0-66.0) % Immature Gran % (Auto) 0.2 (0.00-0.4) % Nucleat RBC Rel Count 0.0 (0.00-0.1) % Eos # (Auto) 0.36 (0-0.5) x10^3/uL Immature Gran # (Auto) 0.02 (0.00-0.03) x10^3u/L Absolute Lymphs (auto) 2.09 (1.0-4.6) x10^3/uL Absolute Monos (auto) 0.48 (0.0-1.3) x10^3/uL Absolute Nucleated RBC 0.00 (0.00-0.01) x10^3u/L Lymphocytes % 25.1 (24.0-44.0) % Monocytes % 5.8 (0.0-12.0) % Eosinophils % 4.3 (0.00-5.0) % Basophils % 1.0 (0.0-0.4) % Absolute Granulocytes 5.30 (1.4-6.9) x10^3/uL Basophils # 0.08 (0-0.4) x10^3/uL Sodium 137 (137-145) mmol/L Potassium 4.3 (3.5-5.1) mmol/L Chloride 104 (98-107) mmol/L Carbon Dioxide 26 (22-30) mmol/L Anion Gap 11.2 (5-15) MEQ/L BUN 30 H (9-20) mg/dL Creatinine 0.70 (0.66-1.25) mg/dL Estimated GFR > 60.0 ML/MIN Glucose 173 H (74-106) mg/dL POC Glucometer 126 H (74 to 106) mg/dL Calcium 9.0 (8.4-10.2) mg/dL Total Bilirubin 0.30 (0.2-1.3) mg/dL AST 26 (17-59) U/L ALT 19 (0-50) U/L Alkaline Phosphatase 148 H (38-126) U/L Serum Total Protein 7.9 (6.3-8.2) g/dL Albumin 4.2 (3.5-5.0) g/dL Microbiology 07/24/23 14:30 Fungal Culture Result 1 - Final Foot - Right Not Reportable Fungal Culture Result 2 - Final Not Reportable Fungal Culture Result 3 - Final Not Reportable Fungal Culture Result 4 - Final Not Reportable Acid Fast Bacilli (AFB) Probe - Final Not Reportable M.tuberculosis Complex DNA Probe - Final Not Reportable Mycobact. avium Complex DNA Probe - Final Not Reportable Mycobacterium kansasii DNA Probe - Final Not Reportable Mycobacterium gordanae DNA Probe - Final Not Reportable Mycobacterium DNA Probe - Final Not Reportable Organism ID (Sequencing) - Final Not Reportable Organism ID (Sequencing 2)(PALAK) - Final Not Reportable AFB Susceptibility Testing - Final Not Reportable - Radiology Impressions Radiology Exams & Impressions: Radiology Procedures Category Date Time Status FLUOROSCOPY UP TO 1 HR Routine Exams 07/24/23 05:40 Taken FOOT (MINIMUM 3 VIEWS) Routine Exams 07/24/23 05:40 Completed Assessment/Plan (1) S/P transmetatarsal amputation of foot Current Visit: Yes Status: Acute Qualifiers: Laterality: right Qualified Code(s): Z89.431 - Acquired absence of right foot Assessment & Plan: -Plans to keep open with possible closure next week, dressing changes via podiatry -will start on ertapenem, follow cultures Code(s): Z89.439 - ACQUIRED ABSENCE OF UNSPECIFIED FOOT (2) Hypertension Current Visit: No Status: Chronic Qualifiers: Hypertension type: primary hypertension Qualified Code(s): I10 - Essential (primary) hypertension Assessment & Plan: -stable, will continue home meds Code(s): I10 - ESSENTIAL (PRIMARY) HYPERTENSION (3) HLD (hyperlipidemia) Current Visit: Yes Status: Acute Assessment & Plan: -continue atorvastatin Code(s): E78.5 - HYPERLIPIDEMIA, UNSPECIFIED (4) Type 2 diabetes mellitus Current Visit: No Status: Chronic Qualifiers: Diabetes mellitus senior care insulin use: with senior care use Diabetes mellitus complication status: with circulatory complication Diabetes mellitus complication detail: with peripheral angiopathy with gangrene Qualified Code(s): E11.52 - Type 2 diabetes mellitus with diabetic peripheral angiopathy with gangrene; Z79.4 - senior care (current) use of insulin Assessment & Plan: -Most recent A1c 04/23/23 at 8.4, will add a1c level -ADA diet -SSI, glargine (5) PVD (peripheral vascular disease) Current Visit: Yes Status: Acute Assessment & Plan: -noted, adds complexity Code(s): I73.9 - PERIPHERAL VASCULAR DISEASE, UNSPECIFIED
[2023-07-24 15:16] LABS: Hematocrit 29.5 % (42-50); Hemoglobin 9.1 g/dL (12.5-18.0); Mean Cell Volume 89.9 fL (78-100); Mean Corpuscular Hemoglobin 27.7 pg (26-32); Mean Corpuscular Hgb Concent. 30.8 g/dL (32-36); Mean Platelet Volume 9.8 fL (7.5-11.0); Platelet Count 391 x10^3/uL (150-450); Red Blood Count 3.28 x10^6/uL (4.1-5.6); Red Cell Distribution Width 15.9 % (11.5-14.0); White Blood Count 5.6 x10^3/uL (4.0-10.5)
[2023-07-24] MEDS ORDERED: Zofran 4 MG/2 ML VIAL IV PRN (15:25)
[2023-07-24] MEDS ORDERED: TYLENOL 325 MG PO PRN (15:25)
[2023-07-24 15:33] LABS: ALBUMIN 3.6 g/dL (3.5-5.0); ALKALINE PHOSPHATASE 127 U/L (38-126); ANION GAP 9.3 MEQ/L (5-15); BLOOD UREA NITROGEN 27 mg/dL (9-20); CHLORIDE 106 mmol/L (98-107); Calcium 8.5 mg/dL (8.4-10.2); Carbon Dioxide 27 mmol/L (22-30); Creatinine 1 0.67 mg/dL (0.66-1.25); EST GLOMERULAR FILTRATION RATE > 60.0 ML/MIN; Glucose 129 mg/dL (74-106); Potassium 4.2 mmol/L (3.5-5.1); SGOT/AST 24 U/L (17-59); SGPT/ALT 18 U/L (0-50); SODIUM 137 mmol/L (137-145)
[2023-07-24] MEDS ORDERED: Ventolin Hfa MDI IH SCH (16:15)
[2023-07-24] MEDS ORDERED: PERCOCET TABLET 5/325MG PO PRN (16:30)
[2023-07-24] MEDS: Oxy-IR 5 MG PO PRN ×2 (16:52→21:29)
[2023-07-24] MEDS: Nicoderm CQ 21 MG TOP SCH (16:52)
[2023-07-24] MEDS: VENTOLIN COMMON CANISTER IH SCH ×2 (16:56→18:39)
[2023-07-24] MEDS ORDERED: MEDICATION INTERVENTION MC SCH (17:00)
[2023-07-24] MEDS: Invanz *** 1 G in Sodium Chloride 100ML MINI-BAG PLUS 100 ML IV SCH (17:01)
[2023-07-24] MEDS ORDERED: VENTOLIN COMMON CANISTER IH SCH (19:00)
[2023-07-24] MEDS: ZOCOR 20MG PO SCH (21:31)
[2023-07-24] MEDS: HUMALOG SQ PRN (21:31)
[2023-07-24] MEDS: Lantus Insulin SQ SCH (21:32)
[2023-07-24] MEDS ORDERED: NON-FORMULARY ITEM (Atorvastatin Calcium [Atorvastatin Calcium] 20 MG Tablet) PO SCH (22:00)
[2023-07-24] MEDS ORDERED: NON-FORMULARY ITEM (Budesonide/Formoterol Fumarate [Budesonide-Formoterol 160-4.5] 10.2 GM IH SCH (22:00)
[2023-07-25] MEDS: Oxy-IR 5 MG PO PRN ×3 (01:23→15:22)
--- NOTE | 2023-07-25 05:17 | PCM.NOTE ---
Date and Time: 07/25/23 0514 Subjective Assessment: is a 73 year old male with history of HLD, HTN, type 2 diabetes, right first toe osteomyelitis which required amputation on 03/[address] Loco admitted to the hospital for right foot transmetatarsal amputation, currently being treated with Invanz. Patient has continued complaints of right lower extremity pain, rates pain at 8/10, states pain medications are not relieving pain. Will adjust pain medications to oxycontin ER 10mg BID with oxy IR 7.5 for breakthrough. - Review of Systems Constitutional: No Symptoms Eyes: No Symptoms Ears, Nose, & Throat: No Symptoms Respiratory: No Symptoms Cardiac: No Symptoms Abdominal/Gastrointestinal: No Symptoms Genitourinary Symptoms: No Symptoms Musculoskeletal: Other (RLE pain wrapped with gauze/Pasquale bandage) Skin: Other (RLE ambutation) Neurological: No Symptoms Psychological: No Symptoms Objective Exam General Appearance: no apparent distress Neurologic Exam: alert, oriented x 3, cooperative Skin Exam: other (Surgical wound to RLE, open covered with gauze/pasquale bandage) Eye Exam: PERRL Ears, Nose, Throat Exam: normal ENT inspection Neck Exam: normal inspection Respiratory Exam: normal breath sounds, lungs clear Cardiovascular Exam: regular rate/rhythm, normal heart sounds Extremity Exam: other (Surgical wound to RLE, open covered with gauze/pasquale bandage) Back Exam: normal inspection OBJECTIVE DATA Vital Signs: Vital Signs - 24 hr Temp Pulse Resp BP Pulse Ox 07/25/23 04:00 97.5 F 98 H 22 126/57 96 07/24/23 23:39 97.9 F 77 18 130/68 95 07/24/23 19:49 97.6 F 78 18 138/64 96 07/24/23 18:39 81 16 94 L 07/24/23 17:09 84 16 94 L 07/24/23 15:13 97.9 F 81 16 120/58 92 L 07/24/23 15:08 97.9 F 81 16 120/58 92 L 07/24/23 09:54 98.1 F 92 H 18 110/61 94 L 07/24/23 09:30 98.1 F 92 H 18 110/61 94 L Pain Assessment - Last Documented Pain Intensity 6 Pain Scale Used FLACC Intake and Output: Intake & Output 07/22/23 07/23/23 07/24/23 07/25/23 11:59 11:59 11:59 11:59 Intake Total 520 Output Total 950 Balance -430 Weight 75.2 kg 74.5 kg Lab Results: Lab Results-Last 24 Hours 07/24/23 07/24/23 07/24/23 Range/Units 09:19 09:19 14:20 WBC 8.3 (4.0-10.5) x10^3/uL RBC 3.63 L (4.1-5.6) x10^6/uL Hgb 9.9 L (12.5-18.0) g/dL Hct 31.9 L (42-50) % MCV 87.9 (78-100) fL MCH 27.3 (26-32) pg MCHC 31.0 L (32-36) g/dL RDW 16.0 H (11.5-14.0) % Plt Count 426 (150-450) x10^3/uL MPV 10.0 (7.5-11.0) fL Gran % 63.6 (36.0-66.0) % Immature Gran % (Auto) 0.2 (0.00-0.4) % Nucleat RBC Rel Count 0.0 (0.00-0.1) % Eos # (Auto) 0.36 (0-0.5) x10^3/uL Immature Gran # (Auto) 0.02 (0.00-0.03) x10^3u/L Absolute Lymphs (auto) 2.09 (1.0-4.6) x10^3/uL Absolute Monos (auto) 0.48 (0.0-1.3) x10^3/uL Absolute Nucleated RBC 0.00 (0.00-0.01) x10^3u/L Lymphocytes % 25.1 (24.0-44.0) % Monocytes % 5.8 (0.0-12.0) % Eosinophils % 4.3 (0.00-5.0) % Basophils % 1.0 (0.0-0.4) % Absolute Granulocytes 5.30 (1.4-6.9) x10^3/uL Basophils # 0.08 (0-0.4) x10^3/uL Sodium 137 (137-145) mmol/L Potassium 4.3 (3.5-5.1) mmol/L Chloride 104 (98-107) mmol/L Carbon Dioxide 26 (22-30) mmol/L Anion Gap 11.2 (5-15) MEQ/L BUN 30 H (9-20) mg/dL Creatinine 0.70 (0.66-1.25) mg/dL Estimated GFR > 60.0 ML/MIN Glucose 173 H (74-106) mg/dL POC Glucometer 126 H (74 to 106) mg/dL Hemoglobin A1c (4.5-6.0) % Calcium 9.0 (8.4-10.2) mg/dL Total Bilirubin 0.30 (0.2-1.3) mg/dL AST 26 (17-59) U/L ALT 19 (0-50) U/L Alkaline Phosphatase 148 H (38-126) U/L Serum Total Protein 7.9 (6.3-8.2) g/dL Albumin 4.2 (3.5-5.0) g/dL 07/24/23 07/24/23 07/24/23 Range/Units 15:16 15:16 16:00 WBC 5.6 (4.0-10.5) x10^3/uL RBC 3.28 L (4.1-5.6) x10^6/uL Hgb 9.1 L (12.5-18.0) g/dL Hct 29.5 L (42-50) % MCV 89.9 (78-100) fL MCH 27.7 (26-32) pg MCHC 30.8 L (32-36) g/dL RDW 15.9 H (11.5-14.0) % Plt Count 391 (150-450) x10^3/uL MPV 9.8 (7.5-11.0) fL Gran % (36.0-66.0) % Immature Gran % (Auto) (0.00-0.4) % Nucleat RBC Rel Count (0.00-0.1) % Eos # (Auto) (0-0.5) x10^3/uL Immature Gran # (Auto) (0.00-0.03) x10^3u/L Absolute Lymphs (auto) (1.0-4.6) x10^3/uL Absolute Monos (auto) (0.0-1.3) x10^3/uL Absolute Nucleated RBC (0.00-0.01) x10^3u/L Lymphocytes % (24.0-44.0) % Monocytes % (0.0-12.0) % Eosinophils % (0.00-5.0) % Basophils % (0.0-0.4) % Absolute Granulocytes (1.4-6.9) x10^3/uL Basophils # (0-0.4) x10^3/uL Sodium 137 (137-145) mmol/L Potassium 4.2 (3.5-5.1) mmol/L Chloride 106 (98-107) mmol/L Carbon Dioxide 27 (22-30) mmol/L Anion Gap 9.3 (5-15) MEQ/L BUN 27 H (9-20) mg/dL Creatinine 0.67 (0.66-1.25) mg/dL Estimated GFR > 60.0 ML/MIN Glucose 129 H (74-106) mg/dL POC Glucometer (74 to 106) mg/dL Hemoglobin A1c 6.45 H (4.5-6.0) % Calcium 8.5 (8.4-10.2) mg/dL Total Bilirubin 0.20 (0.2-1.3) mg/dL AST 24 (17-59) U/L ALT 18 (0-50) U/L Alkaline Phosphatase 127 H (38-126) U/L Serum Total Protein 7.0 (6.3-8.2) g/dL Albumin 3.6 (3.5-5.0) g/dL Radiology Exams: Radiology Procedures Category Date Time Status FLUOROSCOPY UP TO 1 HR Routine Exams 07/24/23 05:40 Taken FOOT (MINIMUM 3 VIEWS) Routine Exams 07/24/23 05:40 Completed Multi-Disciplinary Progress Notes: Multi-Disciplinary Progress Notes 07/24/23 16:30 Physical Therapy Note by Sachin (Georgina#[id number])[place] PATIENT WAS SEEN BY PT THIS AFTERNOON. HE WAS LYING IN BED STATING HE HAD NO P AIN IN THE R LE. HE HAD A R TMA EARLIER THIS AM. HE IS NWB ON THE R AND IS TO HAVE A SECOND SURGERY ON THURSDAY TO CLOSE THE WOUND. PATIENT WAS ALERT X3. PMH: CATARACTS, DMII, DVT, CHOLESTEROL, HTN, COLORECTAL CA. PSX: COLON RESECTION, L 2ND TOE AMPUTATION, L KNEE SURGERY, R EAR SURGERY, R GREAT TOE AMPUTATION, THYROID REMOVAL. PATIENT NOTES HE HAS A ROLLATOR AND WHEELCHAIR AT HOME. HE STATES HE HAS USED THE ROLLATOR FOR 6 YEARS AND IS COMFORTABLE WITH IT. HE STATES HE LIVES ALONE BUT IS INDEPENDENT WITH ADL. HE DID STATE HE NEEDS A PAIR OF CRUTCHES TO GET IN HIS HOUSE HE HAS 2 STEPS AND ALSO TO BE ABLE TO MANOUVER IN THE BATHROOM IT IS TOO SMALL FOR HIS WALKER. AT THIS TIME HIS ONLY EQUIPMENT NEED AT D/C WILL BE AXILLARY CRUTCHES. THIS WAS DISCUSSED WITH NURSING. HE CAN USE A WALKER WITH ASSIST FOR TRANSFERS OVER THE WEEKEND. Initialized on 07/24/23 16:30 - END OF NOTE 07/24/23 10:00 (created 07/24/23 11:20) Case Management Note by Liz Garcia S/W PATIENT AND DR. ST- WILL PLANS FOR PATIENT TO STAY THRU THE WEEKEND FOR DELAYED CLOSURE ON THURSDAY. WILL DO CM ASSESS AND DISCUSS DC PLANS ON THURSDAY Initialized on 07/24/23 11:20 - END OF NOTE Assessment/Plan (1) S/P transmetatarsal amputation of foot Current Visit: Yes Status: Acute Qualifiers: Laterality: right Qualified Code(s): Z89.431 - Acquired absence of right foot Assessment & Plan: -Plans to keep open with possible closure next week, dressing changes via podiatry -will start on ertapenem, follow cultures 07/25: -Pain control with oxycontin ER/ oxy IR -Continue xarelto per podiatry Code(s): Z89.439 - ACQUIRED ABSENCE OF UNSPECIFIED FOOT (2) Hypertension Current Visit: No Status: Chronic Qualifiers: Hypertension type: primary hypertension Qualified Code(s): I10 - Essential (primary) hypertension Assessment & Plan: -stable, will continue home meds Code(s): I10 - ESSENTIAL (PRIMARY) HYPERTENSION (3) HLD (hyperlipidemia) Current Visit: Yes Status: Acute Assessment & Plan: -continue atorvastatin Code(s): E78.5 - HYPERLIPIDEMIA, UNSPECIFIED (4) Type 2 diabetes mellitus Current Visit: No Status: Chronic Qualifiers: Diabetes mellitus long goods drier insulin use: with intermediate use Diabetes mellitus complication status: with circulatory complication Diabetes mellitus complication detail: with peripheral angiopathy with gangrene Qualified Code(s): E11.52 - Type 2 diabetes mellitus with diabetic peripheral angiopathy with gangrene; Z79.4 - longterm (current) use of insulin Assessment & Plan: -Most recent A1c 04/23/23 at 8.4, will add a1c level -ADA diet -SSI, glargine (5) PVD (peripheral vascular disease) Current Visit: Yes Status: Acute Assessment & Plan: -noted, adds complexity Code(s): I73.9 - PERIPHERAL VASCULAR DISEASE, UNSPECIFIED
[2023-07-25 05:32] LABS: Absolute Neutrophil Ct (ANC) 5.24 x10^3/uL (1.4-6.9); BASOPHIL % 0.8 % (0.0-0.4); Basophil (Absolute #) 0.06 x10^3/uL (0-0.4); Eosinophil % 4.2 % (0.00-5.0); Eosinophil (Absolute #) 0.32 x10^3/uL (0-0.5); Hematocrit 26.2 % (42-50); IMMATURE GRAN # 0.01 x10^3u/L (0.00-0.03); IMMATURE GRAN % 0.1 % (0.00-0.4); Lymphocyte (Absolute #) 1.49 x10^3/uL (1.0-4.6); Lymphocytes % 19.6 % (24.0-44.0); Mean Cell Volume 91.3 fL (78-100); Mean Corpuscular Hemoglobin 27.9 pg (26-32); Mean Corpuscular Hgb Concent. 30.5 g/dL (32-36); Mean Platelet Volume 10.9 fL (7.5-11.0); Monocytes % 6.6 % (0.0-12.0); Neutrophil % 68.7 % (36.0-66.0); Platelet Count 342 x10^3/uL (150-450); Red Blood Count 2.87 x10^6/uL (4.1-5.6); Red Cell Distribution Width 16.1 % (11.5-14.0); White Blood Count 7.6 x10^3/uL (4.0-10.5)
[2023-07-25] MEDS ORDERED: Advair Hfa 115/21 Common canister IH SCH (07:00)
[2023-07-25] MEDS: VENTOLIN COMMON CANISTER IH SCH ×4 (07:24→18:44)
[2023-07-25] MEDS: Spiriva 18 Mcg/Cap Inhaler IH SCH (07:27)
[2023-07-25] MEDS: NORVASC 5 MG PO SCH (08:02)
[2023-07-25] MEDS: VITAMIN D PO SCH ×2 (08:03→08:04)
[2023-07-25] MEDS: LASIX 20 MG PO SCH (08:03)
[2023-07-25] MEDS: ECOTRIN 81 MG PO SCH (08:03)
[2023-07-25] MEDS: Toprol-Xl 25MG Tablets PO SCH (08:04)
[2023-07-25] MEDS: XARELTO 10 MG TABLET PO SCH (08:04)
[2023-07-25] MEDS: HUMALOG SQ PRN ×4 (08:06→21:08)
[2023-07-25] MEDS: Invanz *** 1 G in Sodium Chloride 100ML MINI-BAG PLUS 100 ML IV SCH (10:13)
[2023-07-25] MEDS: Oxycontin 10 MG ER PO SCH ×2 (12:05→21:07)
[2023-07-25] MEDS: Neurontin PO SCH ×2 (15:22→21:07)
[2023-07-25 16:15] LABS: ALBUMIN 3.2 g/dL (3.5-5.0); ALKALINE PHOSPHATASE 111 U/L (38-126); ANION GAP 10.9 MEQ/L (5-15); BLOOD UREA NITROGEN 28 mg/dL (9-20); CHLORIDE 105 mmol/L (98-107); Calcium 8.4 mg/dL (8.4-10.2); Carbon Dioxide 25 mmol/L (22-30); Creatinine 1 0.77 mg/dL (0.66-1.25); EST GLOMERULAR FILTRATION RATE > 60.0 ML/MIN; Glucose 152 mg/dL (74-106); Potassium 4.5 mmol/L (3.5-5.1); SGOT/AST 19 U/L (17-59); SGPT/ALT 16 U/L (0-50); SODIUM 137 mmol/L (137-145); Total Protein 6.2 g/dL (6.3-8.2)
[2023-07-25] MEDS: Nicoderm CQ 21 MG TOP SCH (16:51)
[2023-07-25] MEDS: PATIENT OWN MEDICATION IH SCH (18:44)
[2023-07-25] MEDS: PATIENT OWN MEDICATION PO SCH (21:07)
[2023-07-25] MEDS: ZOCOR 20MG PO SCH (21:07)
[2023-07-25] MEDS: Lantus Insulin SQ SCH (21:09)
[2023-07-25] MEDS ORDERED: NON-FORMULARY ITEM (Varenicline Tartrate [Chantix] 1 MG Tablet) PO SCH (22:00)
[2023-07-26] MEDS: Oxy-IR 5 MG PO PRN ×3 (01:28→23:19)
--- NOTE | 2023-07-26 05:42 | PCM.NOTE ---
Date and Time: 07/26/23539 Subjective Assessment: is a 73 year old male with history of HLD, HTN, type 2 diabetes, right first toe osteomyelitis which required amputation on 03/[address] Loco admitted to the hospital for right foot transmetatarsal amputation, currently being treated with Invanz. Patient has continued complaints of right lower extremity pain, states this has improved with new pain regimen rates pain at 6- 7/10. Discussed labs, hgb at 7.4, will continue to monitor this and replace as appropriate. Plan is for closure of RLE wound Thursday with Dr. Loco. - Review of Systems Constitutional: No Symptoms Eyes: No Symptoms Ears, Nose, & Throat: No Symptoms Respiratory: No Symptoms Cardiac: No Symptoms Abdominal/Gastrointestinal: No Symptoms Genitourinary Symptoms: No Symptoms Musculoskeletal: No Symptoms Skin: Other (RLE wound, open packed with iodoform, wrapped in dressing) Neurological: No Symptoms Psychological: No Symptoms Endocrine: No Symptoms Hematologic/Lymphatic: Anemia Objective Exam General Appearance: no apparent distress Neurologic Exam: alert, oriented x 3, cooperative Skin Exam: normal color Eye Exam: PERRL Ears, Nose, Throat Exam: normal ENT inspection Neck Exam: normal inspection Respiratory Exam: crackles/rales Cardiovascular Exam: regular rate/rhythm, normal heart sounds Gastrointestinal/Abdomen Exam: soft, normal bowel sounds Extremity Exam: other (RLE wound, open packed with iodoform, wrapped in dressing) Back Exam: normal inspection OBJECTIVE DATA Vital Signs: Vital Signs - 24 hr Temp Pulse Resp BP Pulse Ox 07/26/23 04:00 97.5 F 90 20 119/54 96 07/26/23 00:00 98 F 94 H 18 126/61 97 07/25/23 19:43 97.8 F 99 H 22 104/56 94 L 07/25/23 18:44 96 H 18 95 07/25/23 13:09 88 20 94 L 07/25/23 08:00 97.7 F 88 18 117/49 92 L 07/25/23 07:36 82 20 97 Pain Assessment - Last Documented Pain Intensity 4 Pain Scale Used 0-10 Pain Scale Intake and Output: Intake & Output 07/23/23 07/24/23 07/25/23 07/26/23 11:59 11:59 11:59 11:59 Intake Total 520 Output Total 1050 1115 Balance -530 -1115 Weight 75.2 kg 74.5 kg Lab Results: Lab Results-Last 24 Hours 07/25/23 Range/Units 05:34 Sodium 137 (137-145) mmol/L Potassium 4.5 (3.5-5.1) mmol/L Chloride 105 (98-107) mmol/L Carbon Dioxide 25 (22-30) mmol/L Anion Gap 10.9 (5-15) MEQ/L BUN 28 H (9-20) mg/dL Creatinine 0.77 (0.66-1.25) mg/dL Estimated GFR > 60.0 ML/MIN Glucose 152 H (74-106) mg/dL Calcium 8.4 (8.4-10.2) mg/dL Total Bilirubin 0.20 (0.2-1.3) mg/dL AST 19 (17-59) U/L ALT 16 (0-50) U/L Alkaline Phosphatase 111 (38-126) U/L Serum Total Protein 6.2 L (6.3-8.2) g/dL Albumin 3.2 L (3.5-5.0) g/dL Radiology Exams: Radiology Procedures Category Date Time Status FLUOROSCOPY UP TO 1 HR Routine Exams 07/24/23 05:40 Taken FOOT (MINIMUM 3 VIEWS) Routine Exams 07/24/23 05:40 Completed Multi-Disciplinary Progress Notes: Multi-Disciplinary Progress Notes 07/25/23 15:10 (created 07/25/23 17:02) Respiratory Note by Precious Cuenca Patient refuses his Albuterol MDI at this time. Patient asks how could I want him to take his inhaler when his foot was hurting so bad and that he can't even move it without it hurting so bad. Explained to patient I was not aware that his foot was hurting and would inform his nurse that it was hurting. Preston Ortega RN notified. Initialized on 07/25/23 17:02 - END OF NOTE Assessment/Plan (1) S/P transmetatarsal amputation of foot Current Visit: Yes Status: Acute Qualifiers: Laterality: right Qualified Code(s): Z89.431 - Acquired absence of right foot Assessment & Plan: -Plans to keep open with possible closure next week, dressing changes via podiatry -will start on ertapenem, follow cultures 07/25: -Pain control with oxycontin ER/ oxy IR/neurontin -Continue xarelto per podiatry Code(s): Z89.439 - ACQUIRED ABSENCE OF UNSPECIFIED FOOT (2) Hypertension Current Visit: No Status: Chronic Qualifiers: Hypertension type: primary hypertension Qualified Code(s): I10 - Essential (primary) hypertension Assessment & Plan: -stable, will continue home meds Code(s): I10 - ESSENTIAL (PRIMARY) HYPERTENSION (3) HLD (hyperlipidemia) Current Visit: Yes Status: Acute Assessment & Plan: -continue atorvastatin Code(s): E78.5 - HYPERLIPIDEMIA, UNSPECIFIED (4) Type 2 diabetes mellitus Current Visit: No Status: Chronic Qualifiers: Diabetes mellitus buttermaker insulin use: with m[facility]p use Diabetes mellitus complication status: with circulatory complication Diabetes mellitus complication detail: with peripheral angiopathy with gangrene Qualified Code(s): E11.52 - Type 2 diabetes mellitus with diabetic peripheral angiopathy with gangrene; Z79.4 - [facility] (current) use of insulin Assessment & Plan: -Most recent A1c 04/23/23 at 8.4, will add a1c level -ADA diet -SSI, glargine (5) PVD (peripheral vascular disease) Current Visit: Yes Status: Acute Assessment & Plan: -noted, adds complexity Code(s): I73.9 - PERIPHERAL VASCULAR DISEASE, UNSPECIFIED (6) Anemia Current Visit: Yes Status: Acute Assessment & Plan: -Hgb at 7.4 today, will continue to monitor and replace if hgb < 7 Code(s): D64.9 - ANEMIA, UNSPECIFIED
[2023-07-26 05:43] LABS: Absolute Neutrophil Ct (ANC) 3.69 x10^3/uL (1.4-6.9); BASOPHIL % 0.9 % (0.0-0.4); Basophil (Absolute #) 0.06 x10^3/uL (0-0.4); Eosinophil % 3.9 % (0.00-5.0); Eosinophil (Absolute #) 0.27 x10^3/uL (0-0.5); Hematocrit 24.1 % (42-50); Hemoglobin 7.4 g/dL (12.5-18.0); IMMATURE GRAN # 0.01 x10^3u/L (0.00-0.03); IMMATURE GRAN % 0.1 % (0.00-0.4); Lymphocyte (Absolute #) 2.36 x10^3/uL (1.0-4.6); Lymphocytes % 33.8 % (24.0-44.0); Mean Corpuscular Hemoglobin 28.2 pg (26-32); Mean Corpuscular Hgb Concent. 30.7 g/dL (32-36); Mean Platelet Volume 10.5 fL (7.5-11.0); Monocyte (Absolute #) 0.59 x10^3/uL (0.0-1.3); Monocytes % 8.5 % (0.0-12.0); Neutrophil % 52.8 % (36.0-66.0); Platelet Count 352 x10^3/uL (150-450); Red Blood Count 2.62 x10^6/uL (4.1-5.6)
[2023-07-26] MEDS: VENTOLIN COMMON CANISTER IH SCH ×4 (07:40→21:14)
[2023-07-26 07:45] LABS: ALBUMIN 3.1 g/dL (3.5-5.0); ALKALINE PHOSPHATASE 108 U/L (38-126); ANION GAP 9.7 MEQ/L (5-15); BLOOD UREA NITROGEN 33 mg/dL (9-20); CHLORIDE 106 mmol/L (98-107); Calcium 8.6 mg/dL (8.4-10.2); Carbon Dioxide 25 mmol/L (22-30); Creatinine 1 0.77 mg/dL (0.66-1.25); EST GLOMERULAR FILTRATION RATE > 60.0 ML/MIN; Glucose 115 mg/dL (74-106); Potassium 4.5 mmol/L (3.5-5.1); SGOT/AST 16 U/L (17-59); SGPT/ALT 14 U/L (0-50); SODIUM 136 mmol/L (137-145); Total Protein 6.2 g/dL (6.3-8.2)
[2023-07-26] MEDS: XARELTO 10 MG TABLET PO SCH (08:16)
[2023-07-26] MEDS: VITAMIN D PO SCH (08:17)
[2023-07-26] MEDS: ECOTRIN 81 MG PO SCH (08:17)
[2023-07-26] MEDS: Oxycontin 10 MG ER PO SCH ×2 (08:18→21:25)
[2023-07-26] MEDS: Toprol-Xl 25MG Tablets PO SCH (08:18)
[2023-07-26] MEDS: Neurontin PO SCH ×2 (08:18→21:26)
[2023-07-26] MEDS: Invanz *** 1 G in Sodium Chloride 100ML MINI-BAG PLUS 100 ML IV SCH (08:19)
[2023-07-26] MEDS: PATIENT OWN MEDICATION PO SCH ×2 (08:22→21:26)
[2023-07-26] MEDS: HUMALOG SQ PRN ×4 (08:43→21:25)
[2023-07-26] MEDS: PATIENT OWN MEDICATION IH SCH ×2 (10:00→21:15)
[2023-07-26] MEDS: Spiriva 18 Mcg/Cap Inhaler IH SCH (10:00)
[2023-07-26] MEDS: LASIX 20 MG PO SCH (10:27)
[2023-07-26] MEDS: NORVASC 5 MG PO SCH (10:27)
[2023-07-26 10:47] LABS: Hematocrit 23.6 % (42-50); Hemoglobin 7.4 g/dL (12.5-18.0)
[2023-07-26 16:23] LABS: Hematocrit 28.3 % (42-50); Hemoglobin 8.5 g/dL (12.5-18.0)
[2023-07-26] MEDS: Nicoderm CQ 21 MG TOP SCH (17:25)
[2023-07-26] MEDS: ZOCOR 20MG PO SCH (21:26)
[2023-07-26] MEDS: Lantus Insulin SQ SCH (21:26)
[2023-07-27 04:33] LABS: Absolute Neutrophil Ct (ANC) 4.34 x10^3/uL (1.4-6.9); BASOPHIL % 0.9 % (0.0-0.4); Basophil (Absolute #) 0.07 x10^3/uL (0-0.4); Eosinophil % 3.5 % (0.00-5.0); Eosinophil (Absolute #) 0.27 x10^3/uL (0-0.5); Hematocrit 24.8 % (42-50); Hemoglobin 7.5 g/dL (12.5-18.0); IMMATURE GRAN # 0.02 x10^3u/L (0.00-0.03); IMMATURE GRAN % 0.3 % (0.00-0.4); Lymphocyte (Absolute #) 2.34 x10^3/uL (1.0-4.6); Lymphocytes % 30.7 % (24.0-44.0); Mean Cell Volume 90.2 fL (78-100); Mean Corpuscular Hemoglobin 27.3 pg (26-32); Mean Corpuscular Hgb Concent. 30.2 g/dL (32-36); Mean Platelet Volume 9.9 fL (7.5-11.0); Monocyte (Absolute #) 0.59 x10^3/uL (0.0-1.3); Monocytes % 7.7 % (0.0-12.0); Neutrophil % 56.9 % (36.0-66.0); Platelet Count 380 x10^3/uL (150-450); Red Blood Count 2.75 x10^6/uL (4.1-5.6); Red Cell Distribution Width 15.9 % (11.5-14.0); White Blood Count 7.6 x10^3/uL (4.0-10.5)
[2023-07-27 05:19] LABS: ALBUMIN 3.4 g/dL (3.5-5.0); ALKALINE PHOSPHATASE 102 U/L (38-126); ANION GAP 11.2 MEQ/L (5-15); BLOOD UREA NITROGEN 34 mg/dL (9-20); CHLORIDE 106 mmol/L (98-107); Calcium 8.3 mg/dL (8.4-10.2); Carbon Dioxide 22 mmol/L (22-30); Creatinine 1 0.62 mg/dL (0.66-1.25); EST GLOMERULAR FILTRATION RATE > 60.0 ML/MIN; Glucose 137 mg/dL (74-106); Potassium 4.3 mmol/L (3.5-5.1); SGOT/AST 23 U/L (17-59); SGPT/ALT 15 U/L (0-50); SODIUM 135 mmol/L (137-145); Total Protein 6.9 g/dL (6.3-8.2)
[2023-07-27] MEDS: VENTOLIN COMMON CANISTER IH SCH ×4 (07:02→21:55)
[2023-07-27] MEDS: Spiriva 18 Mcg/Cap Inhaler IH SCH (07:02)
[2023-07-27] MEDS: PATIENT OWN MEDICATION IH SCH ×2 (07:03→21:55)
[2023-07-27] MEDS: Oxy-IR 5 MG PO PRN ×2 (07:37→18:28)
[2023-07-27] MEDS: Neurontin PO SCH ×2 (10:48→21:47)
[2023-07-27] MEDS: ECOTRIN 81 MG PO SCH (10:48)
[2023-07-27] MEDS: LASIX 20 MG PO SCH (10:48)
[2023-07-27] MEDS: Toprol-Xl 25MG Tablets PO SCH (10:48)
[2023-07-27] MEDS: XARELTO 10 MG TABLET PO SCH (10:48)
[2023-07-27] MEDS: Oxycontin 10 MG ER PO SCH ×2 (10:48→21:47)
[2023-07-27] MEDS: NORVASC 5 MG PO SCH (10:48)
[2023-07-27] MEDS: PATIENT OWN MEDICATION PO SCH ×2 (10:49→21:47)
[2023-07-27] MEDS: Invanz *** 1 G in Sodium Chloride 100ML MINI-BAG PLUS 100 ML IV SCH (11:18)
[2023-07-27] MEDS: HUMALOG SQ PRN ×2 (11:26→21:45)
--- NOTE | 2023-07-27 12:54 | PCM.NOTE ---
Date and Time: 07/27/23 0500 Subjective Assessment: is a 73 year old male with history of HLD, HTN, type 2 diabetes, right first toe osteomyelitis which required amputation on 03/[address] Loco admitted to the hospital for right foot transmetatarsal amputation, currently being treated with Invanz. Patient has continued complaints of right lower extremity pain, states this has improved with new pain regimen rates pain at 6- 04/13. Plan is for closure of RLE wound Thursday with Dr. Loco. - Review of Systems Constitutional: No Fever, No Chills Eyes: No Symptoms Ears, Nose, & Throat: No Symptoms Respiratory: No Cough, No Short Of Breath Cardiac: No Chest Pain, No Edema, No Syncope Abdominal/Gastrointestinal: No Abdominal Pain, No Nausea, No Vomiting, No Diarrhea Genitourinary Symptoms: No Dysuria Musculoskeletal: No Back Pain, No Neck Pain Skin: Skin Lesions (RLE wrapped), No Rash Neurological: No Dizziness, No Focal Weakness, No Sensory Changes Psychological: No Symptoms Endocrine: No Symptoms Hematologic/Lymphatic: No Symptoms Immunological/Allergic: No Symptoms Objective Exam General Appearance: no apparent distress, alert Neurologic Exam: alert, oriented x 3, cooperative, normal mood/affect, nml cerebellar function, sensation nml, No motor deficits Skin Exam: normal color, warm, dry Eye Exam: PERRL, EOMI, eyes nml inspection Ears, Nose, Throat Exam: normal ENT inspection, pharynx normal, moist mucous membranes Neck Exam: normal inspection, non-tender, supple, full range of motion Respiratory Exam: normal breath sounds, lungs clear, No respiratory distress Cardiovascular Exam: regular rate/rhythm, normal heart sounds Gastrointestinal/Abdomen Exam: soft, No tenderness, No mass Extremity Exam: normal inspection, normal range of motion, tenderness, other (RLQ wrapped) Back Exam: normal inspection, normal range of motion, No CVA tenderness, No vertebral tenderness Male Genitalia Exam: deferred Rectal Exam: deferred OBJECTIVE DATA Vital Signs: Vital Signs - 24 hr Temp Pulse Resp BP Pulse Ox 07/27/23 11:37 81 16 94 L 07/27/23 11:36 97.5 F 92 H 17 111/56 97 07/27/23 07:03 88 16 94 L 07/27/23 06:59 97.7 F 84 18 114/57 96 07/27/23 04:00 97.8 F 85 20 101/48 93 L 07/26/23 23:43 97.5 F 89 18 116/66 92 L 07/26/23 21:14 95 H 18 94 L 07/26/23 19:34 99.1 F 93 H 20 132/60 92 L 07/26/23 16:00 97.5 F 85 18 147/65 90 L 07/26/23 15:31 88 18 92 L Pain Assessment - Last Documented Pain Intensity 5 Pain Scale Used 0-10 Pain Scale Intake and Output: Intake & Output 07/25/23 07/26/23 07/27/23 07/28/23 11:59 11:59 11:59 11:59 Intake Total 520 1840 Output Total 1050 1115 1800 Balance -530 -1115 40 Weight 74.5 kg Lab Results: Lab Results-Last 24 Hours 07/26/23 07/27/23 07/27/23 Range/Units 16:15 04:29 04:29 WBC 7.6 (4.0-10.5) x10^3/uL RBC 2.75 L (4.1-5.6) x10^6/uL Hgb 8.5 L 7.5 L (12.5-18.0) g/dL Hct 28.3 L 24.8 L (42-50) % MCV 90.2 (78-100) fL MCH 27.3 (26-32) pg MCHC 30.2 L (32-36) g/dL RDW 15.9 H (11.5-14.0) % Plt Count 380 (150-450) x10^3/uL MPV 9.9 (7.5-11.0) fL Gran % 56.9 (36.0-66.0) % Immature Gran % (Auto) 0.3 (0.00-0.4) % Nucleat RBC Rel Count 0.0 (0.00-0.1) % Eos # (Auto) 0.27 (0-0.5) x10^3/uL Immature Gran # (Auto) 0.02 (0.00-0.03) x10^3u/L Absolute Lymphs (auto) 2.34 (1.0-4.6) x10^3/uL Absolute Monos (auto) 0.59 (0.0-1.3) x10^3/uL Absolute Nucleated RBC 0.00 (0.00-0.01) x10^3u/L Lymphocytes % 30.7 (24.0-44.0) % Monocytes % 7.7 (0.0-12.0) % Eosinophils % 3.5 (0.00-5.0) % Basophils % 0.9 (0.0-0.4) % Absolute Granulocytes 4.34 (1.4-6.9) x10^3/uL Basophils # 0.07 (0-0.4) x10^3/uL Sodium 135 L (137-145) mmol/L Potassium 4.3 (3.5-5.1) mmol/L Chloride 106 (98-107) mmol/L Carbon Dioxide 22 (22-30) mmol/L Anion Gap 11.2 (5-15) MEQ/L BUN 34 H (9-20) mg/dL Creatinine 0.62 L (0.66-1.25) mg/dL Estimated GFR > 60.0 ML/MIN Glucose 137 H (74-106) mg/dL Calcium 8.3 L (8.4-10.2) mg/dL Total Bilirubin 0.20 (0.2-1.3) mg/dL AST 23 (17-59) U/L ALT 15 (0-50) U/L Alkaline Phosphatase 102 (38-126) U/L Serum Total Protein 6.9 (6.3-8.2) g/dL Albumin 3.4 L (3.5-5.0) g/dL Multi-Disciplinary Progress Notes: Multi-Disciplinary Progress Notes 07/27/23 10:06 Physical Therapy Note by Abi(L#[id number])[employer] ATTEMPTED P.T. EVAL THIS A.M. PT. REFUSED TO GET UP TO TRANSFER TO CHAIR UNTIL AFTER SX TO CLOSE INCISION WHICH IS SCHEDULED FOR TOMORROW. PT. LIVES ALONE W/ SISTER NEARBY WHO HELPS W/ MEALS. WILL ATTEMPT TOMORROW AFTER SX. Initialized on 07/27/23 10:06 - END OF NOTE Assessment/Plan (1) S/P transmetatarsal amputation of foot Current Visit: Yes Status: Acute Qualifiers: Laterality: right Qualified Code(s): Z89.431 - Acquired absence of right foot Assessment & Plan: -Plans to keep open with possible closure next week, dressing changes via podiatry -will start on ertapenem, follow cultures 07/25: -Pain control with oxycontin ER/ oxy IR/neurontin -Continue xarelto per podiatry Code(s): Z89.439 - ACQUIRED ABSENCE OF UNSPECIFIED FOOT (2) Anemia Current Visit: Yes Status: Acute Assessment & Plan: - Hgb 7.5 - monitor Code(s): D64.9 - ANEMIA, UNSPECIFIED (3) HLD (hyperlipidemia) Current Visit: Yes Status: Acute Assessment & Plan: -continue atorvastatin Code(s): E78.5 - HYPERLIPIDEMIA, UNSPECIFIED (4) PVD (peripheral vascular disease) Current Visit: Yes Status: Acute Assessment & Plan: -noted, adds complexity Code(s): I73.9 - PERIPHERAL VASCULAR DISEASE, UNSPECIFIED (5) Hypertension Current Visit: No Status: Chronic Qualifiers: Hypertension type: primary hypertension Qualified Code(s): I10 - Essential (primary) hypertension Assessment & Plan: -stable, continue home meds Code(s): I10 - ESSENTIAL (PRIMARY) HYPERTENSION (6) Type 2 diabetes mellitus Current Visit: No Status: Chronic Qualifiers: Diabetes mellitus terminal gauger insulin use: with residential use Diabetes mellitus complication status: with circulatory complication Diabetes mellitus complication detail: with peripheral angiopathy with gangrene Qualified Code(s): E11.52 - Type 2 diabetes mellitus with diabetic peripheral angiopathy with gangrene; Z79.4 - terminal operator (current) use of insulin Assessment & Plan: -Most recent A1c 04/23/23 at 8.4, - A1c 07/24 6.45- controlled -ADA diet -SSI, glargine VTE: Xarelto D/C plan: 1-2 days Next of Kin: Mary Deleon [phone]
--- NOTE | 2023-07-27 14:54 | OP ---
SURGERY DATE/TIME: 07/24/2023 1252 PREOPERATIVE DIAGNOSES: 1) Osteomyelitis metatarsals 1 through 5 and proximal phalanx multiple digits. 2) Diabetic foot ulcer. 3) Peripheral vascular disease. 4) Noncompliant of previous surgical intervention. 5) Tobacco dependence. 6) Alcohol dependence. POSTOPERATIVE DIAGNOSES: 1) Osteomyelitis metatarsals 1 through 5 and proximal phalanx multiple digits. 2) Diabetic foot ulcer. 3) Peripheral vascular disease. 4) Noncompliant of previous surgical intervention. 5) Tobacco dependence. 6) Alcohol dependence. PROCEDURE: Open transmetatarsal amputation right foot. SURGEON: Omar Loco DPM. LUMBER CHAIN OFFBEARER: None. ANESTHESIA: Monitored anesthesia care with a local block. HEMOSTASIS: Pressure dressing. ESTIMATED BLOOD LOSS: Approximately 30 cc. MATERIALS: 3-0 Nylon, 0.25 inch Iodoform packing and a Wanda drain. INJECTABLES: 30 cc of a 1:1 mixture of 1% lidocaine plain and 0.5% bupivacaine plain injected in an ankle block-type fashion. INDICATION FOR SURGERY: William is a very well-known patient to my service for an amputation to the hallux. The patient has had a hard time healing subsequent wounds and as a result and has undergone multiple interventions from a vascular standpoint. It was not until recently that the patient had a successful procedure for re-intervention of the blood supply with a doctor in [place] where a blood vessel was replaced into his right posterior tibial restoring the majority of the dominant blood flow to his right foot. At this time the patient has adequate pulses to the posterior tibial blood vessel and likely has a good chance of healing. However, the patient was left in the custodial and did have some residual osteomyelitis when he left the hospital, this was attempted to be treated however he was placed on amoxicillin which was not adequate for the bacteria that was growing. Since then the patient has made clinical improvement however MRI demonstrated that he does have residual osteomyelitis of metatarsals 2 through 4 and has subsequently had a first metatarsal resection. At this time bone biopsies confirmed that this is truly osteomyelitis and definitive measures were sought to take place. The patient understands at this time that we will proceed with a transmetatarsal amputation and he will stay in the hospital for IV antibiotic and compliance of treatment. From that standpoint he understands all risks, complications and benefits of surgical intervention at this time including but not limited to infection, hematoma, seroma, possibility of delayed wound healing, nonwound healing and possible need for surgical intervention at a later date. It has been discussed with the patient that this is the first of two stages that are anticipated for this procedure. The patient understands that there is no guarantees to saving the limb. However with his return of blood flow, the only factors that delay his healing are his nicotine dependence and alcohol dependence as well as staying non-weightbearing. The patient understands reluctantly however he wishes to proceed. It is with that we decided to proceed. DESCRIPTION OF PROCEDURE AND FINDINGS: The patient is brought into the OR and placed and placed on the OR table in the supine position. At this time monitored anesthesia care was administered until the patient was sedated. The right lower extremity was prepped and draped in typical sterile fashion and lowered onto the surgical field. A block consisting of 30 cc of a 1:1 mixture of 1% lidocaine plain and 0.5% bupivacaine plain was injected in an ankle block-type fashion. Following this, a fish mouth incision was made dissecting the metatarsophalangeal joints of digits 2 through 5 and resecting the wound base of the previous partial amputation site of the first metatarsal. At this time a Barber was utilized to elevate the full thickness flaps over the dorsal and plantar aspects of the metatarsal. A total joint saw was utilized to remove metatarsals 2 through 5 mid diaphysis. Following this, curettage of the medullary cavity took place utilizing a small curette. Following this copious amounts of sterile saline and 1,000 ml of Bactisure was utilized to flush the surgical site followed by 2 liters of sterile saline. Following this any tendons or the plantar plate was removed from the surgical site. The intrinsic flap was harvested for later use at this time including all of the plantar intrinsics that were not damaged in previous procedures or infection From that standpoint, 3-0 Nylon was utilized in a trauma-type suture fashion to coapt new sleeve of the flap. 0.25 inch Iodoform packing was introduced as well as Wanda drain. Following this a dressing consisting of Betadine, Adaptic, 4x4, Kerlix, ABD and VICTOR MANUEL was applied to the patient's right lower extremity with moderate compression. The patient then was reversed from anesthesia and returned to the postoperative anesthesia care unit with vital signs stable and vascular status intact. The patient handled the anesthesia as well as the procedure without significant complication. Postoperative orders as indicated in the patient's discharge chart.
--- NOTE | 2023-07-27 15:12 | XRAY ---
5 seconds of fluoroscopy was used in surgery for the amputation of all mid to distal metatarsals and all phalanges.
[2023-07-27] MEDS: Nicoderm CQ 21 MG TOP SCH (16:08)
[2023-07-27] MEDS: ZOCOR 20MG PO SCH (21:47)
[2023-07-27] MEDS: Lantus Insulin SQ SCH (21:47)
[2023-07-28] MEDS: Oxy-IR 5 MG PO PRN ×3 (03:18→23:57)
[2023-07-28 05:02] LABS: Absolute Neutrophil Ct (ANC) 3.46 x10^3/uL (1.4-6.9); BASOPHIL % 0.9 % (0.0-0.4); Basophil (Absolute #) 0.06 x10^3/uL (0-0.4); Eosinophil % 4.9 % (0.00-5.0); Eosinophil (Absolute #) 0.32 x10^3/uL (0-0.5); Hematocrit 23.2 % (42-50); Hemoglobin 7.4 g/dL (12.5-18.0); IMMATURE GRAN # 0.02 x10^3u/L (0.00-0.03); IMMATURE GRAN % 0.3 % (0.00-0.4); Lymphocyte (Absolute #) 2.12 x10^3/uL (1.0-4.6); Lymphocytes % 32.7 % (24.0-44.0); Mean Cell Volume 90.6 fL (78-100); Mean Corpuscular Hemoglobin 28.9 pg (26-32); Mean Corpuscular Hgb Concent. 31.9 g/dL (32-36); Monocyte (Absolute #) 0.51 x10^3/uL (0.0-1.3); Monocytes % 7.9 % (0.0-12.0); Neutrophil % 53.3 % (36.0-66.0); Platelet Count 414 x10^3/uL (150-450); Red Blood Count 2.56 x10^6/uL (4.1-5.6); Red Cell Distribution Width 15.6 % (11.5-14.0); White Blood Count 6.5 x10^3/uL (4.0-10.5)
[2023-07-28 05:26] LABS: ALBUMIN 3.5 g/dL (3.5-5.0); ALKALINE PHOSPHATASE 100 U/L (38-126); ANION GAP 11.6 MEQ/L (5-15); BLOOD UREA NITROGEN 30 mg/dL (9-20); CHLORIDE 106 mmol/L (98-107); Calcium 8.5 mg/dL (8.4-10.2); Carbon Dioxide 22 mmol/L (22-30); Creatinine 1 0.62 mg/dL (0.66-1.25); EST GLOMERULAR FILTRATION RATE > 60.0 ML/MIN; Glucose 118 mg/dL (74-106); Potassium 4.2 mmol/L (3.5-5.1); SGOT/AST 20 U/L (17-59); SGPT/ALT 16 U/L (0-50); SODIUM 135 mmol/L (137-145)
[2023-07-28] MEDS ORDERED: Lactated Ringers 1,000 ML IV SCH (08:00)
[2023-07-28] MEDS ORDERED: GlucaGen 1 MG IM ONE (08:22)
[2023-07-28] MEDS ORDERED: D50W 50 ml Abboject IV ONE (08:29)
[2023-07-28] MEDS: PATIENT OWN MEDICATION IH SCH ×2 (08:58→19:10)
[2023-07-28] MEDS: Spiriva 18 Mcg/Cap Inhaler IH SCH (08:58)
[2023-07-28] MEDS: VENTOLIN COMMON CANISTER IH SCH ×4 (08:59→19:10)
[2023-07-28] MEDS: Neurontin PO SCH ×2 (09:25→21:00)
[2023-07-28] MEDS: ECOTRIN 81 MG PO SCH (09:25)
[2023-07-28] MEDS: Oxycontin 10 MG ER PO SCH ×2 (09:25→21:00)
[2023-07-28] MEDS: LASIX 20 MG PO SCH (09:25)
[2023-07-28] MEDS: PATIENT OWN MEDICATION PO SCH ×2 (09:25→21:00)
[2023-07-28] MEDS: XARELTO 10 MG TABLET PO SCH (09:26)
[2023-07-28] MEDS: VITAMIN D PO SCH (09:26)
[2023-07-28] MEDS: Invanz *** 1 G in Sodium Chloride 100ML MINI-BAG PLUS 100 ML IV SCH (09:53)
[2023-07-28] MEDS: NORVASC 5 MG PO SCH (09:56)
[2023-07-28] MEDS: Toprol-Xl 25MG Tablets PO SCH (09:56)
--- NOTE | 2023-07-28 12:09 | PCM.NOTE ---
Date and Time: 07/28/23 1204 Subjective Assessment: 07/27/23 is a 73 year old male with history of HLD, HTN, type 2 diabetes, right first toe osteomyelitis which required amputation on 03/[address] Loco admitted to the hospital for right foot transmetatarsal amputation, currently being treated with Invanz. Patient has continued complaints of right lower extremity pain, states this has improved with new pain regimen rates pain at 6- 04/13. Plan is for closure of RLE wound Thursday with Dr. Loco. 07/28/23 Pt resting in bed. He is scheduled for surgery today with podiatry. He is anxious but wants it done. His pain is well controlled at this time. He denies any further concerns at this time. - Review of Systems Constitutional: No Fever, No Chills Eyes: No Symptoms Ears, Nose, & Throat: No Symptoms Respiratory: No Cough, No Short Of Breath Cardiac: No Chest Pain, No Edema, No Syncope Abdominal/Gastrointestinal: No Abdominal Pain, No Nausea, No Vomiting, No Diarr hea Genitourinary Symptoms: No Dysuria Musculoskeletal: No Back Pain, No Neck Pain Skin: Other (RLE wrapped. ), No Rash Neurological: No Dizziness, No Focal Weakness, No Sensory Changes Psychological: No Symptoms Endocrine: No Symptoms Hematologic/Lymphatic: No Symptoms Immunological/Allergic: No Symptoms Objective Exam General Appearance: no apparent distress, alert Neurologic Exam: alert, oriented x 3, cooperative, normal mood/affect, nml cerebellar function, sensation nml, No motor deficits Skin Exam: normal color, warm, dry, other (RLE wrapped) Eye Exam: PERRL, EOMI, eyes nml inspection Ears, Nose, Throat Exam: normal ENT inspection, pharynx normal, moist mucous membranes Neck Exam: normal inspection, non-tender, supple, full range of motion Respiratory Exam: normal breath sounds, lungs clear, No respiratory distress Cardiovascular Exam: regular rate/rhythm, normal heart sounds Gastrointestinal/Abdomen Exam: soft, No tenderness, No mass Extremity Exam: normal inspection, normal range of motion Back Exam: normal inspection, normal range of motion, No CVA tenderness, No vertebral tenderness Male Genitalia Exam: deferred Rectal Exam: deferred OBJECTIVE DATA Vital Signs: Vital Signs - 24 hr Temp Pulse Resp BP Pulse Ox 07/28/23 11:33 97.5 F 86 18 143/63 92 L 07/28/23 09:14 79 14 125/61 94 L 07/28/23 09:03 79 14 94 L 07/28/23 08:00 98.2 F 82 17 125/61 90 L 07/28/23 04:00 97.5 F 90 16 109/54 100 07/27/23 23:19 97.7 F 86 16 118/60 99 07/27/23 19:39 98.4 F 88 16 128/58 93 L 07/27/23 16:00 98.0 F 87 17 139/51 96 07/27/23 15:51 85 16 96 Pain Assessment - Last Documented Pain Intensity 4 Pain Scale Used 0-10 Pain Scale Intake and Output: Intake & Output 07/26/23 07/27/23 07/28/23 07/29/23 11:59 11:59 11:59 11:59 Intake Total 1840 120 Output Total 1115 1800 1625 Balance -1115 40 -1505 Weight 74.5 kg Lab Results: Lab Results-Last 24 Hours 07/28/23 07/28/23 Range/Units 04:20 04:20 WBC 6.5 (4.0-10.5) x10^3/uL RBC 2.56 L (4.1-5.6) x10^6/uL Hgb 7.4 L (12.5-18.0) g/dL Hct 23.2 L (42-50) % MCV 90.6 (78-100) fL MCH 28.9 (26-32) pg MCHC 31.9 L (32-36) g/dL RDW 15.6 H (11.5-14.0) % Plt Count 414 (150-450) x10^3/uL MPV 11.0 (7.5-11.0) fL Gran % 53.3 (36.0-66.0) % Immature Gran % (Auto) 0.3 (0.00-0.4) % Nucleat RBC Rel Count 0.0 (0.00-0.1) % Eos # (Auto) 0.32 (0-0.5) x10^3/uL Immature Gran # (Auto) 0.02 (0.00-0.03) x10^3u/L Absolute Lymphs (auto) 2.12 (1.0-4.6) x10^3/uL Absolute Monos (auto) 0.51 (0.0-1.3) x10^3/uL Absolute Nucleated RBC 0.00 (0.00-0.01) x10^3u/L Lymphocytes % 32.7 (24.0-44.0) % Monocytes % 7.9 (0.0-12.0) % Eosinophils % 4.9 (0.00-5.0) % Basophils % 0.9 (0.0-0.4) % Absolute Granulocytes 3.46 (1.4-6.9) x10^3/uL Basophils # 0.06 (0-0.4) x10^3/uL Sodium 135 L (137-145) mmol/L Potassium 4.2 (3.5-5.1) mmol/L Chloride 106 (98-107) mmol/L Carbon Dioxide 22 (22-30) mmol/L Anion Gap 11.6 (5-15) MEQ/L BUN 30 H (9-20) mg/dL Creatinine 0.62 L (0.66-1.25) mg/dL Estimated GFR > 60.0 ML/MIN Glucose 118 H (74-106) mg/dL Calcium 8.5 (8.4-10.2) mg/dL Total Bilirubin 0.30 (0.2-1.3) mg/dL AST 20 (17-59) U/L ALT 16 (0-50) U/L Alkaline Phosphatase 100 (38-126) U/L Serum Total Protein 7.0 (6.3-8.2) g/dL Albumin 3.5 (3.5-5.0) g/dL Multi-Disciplinary Progress Notes: Multi-Disciplinary Progress Notes 07/28/23 10:28 Case Management Note by Liz Garcia/Feliciano [facility]- HE WAS NOTIFIED THAT [facility] ACCEPTED HIM AND WILL PROVIDE TRANSPORTATION TO THEIR FACILITY AND BACK AND FORTH FOR HIS FOLLOW UP APT. - PATIENT AGREEABLE WITH PLAN Initialized on 07/28/23 10:28 - END OF NOTE 07/28/23 08:19 Case Management Note by Liz Garcia/Feliciano SPANN AT [facility]- THEY HAVE ACCEPTED AND WILL BE READY FOR PATIENT AT TIME OF DC Initialized on 07/28/23 08:19 - END OF NOTE 07/27/23 13:58 Case Management Note by Liz Garcia DR.'S NURSE JEANINE- S/W PATIENT- PATIENT AGREEABLE TO REHAB. PASRR PAPERWORK COMPLETE- NO LEVEL II REQUIRED, COPIES PLACED IN CHART REFERRAL FAXED TO [facility]- JEANINE STATED THEY DO PROVIDE TRANSPORTATION BACK AND FORTH FOR THEIR APTS WITH ALMA ROSA Initialized on 07/27/23 13:58 - END OF NOTE 07/27/23 13:34 Occupational Therapy Note by Toby(L#[id number])Vidya OTR coordinated with nursing and Case Management regarding patient status and discharge planning. Per nursing, patient was asleep and OTR visited patient's room to confirm. Per notes in chart, patient has had a difficult day. OTR did not interrupt patient's rest and will try again to complete OT Evaluation later this afternoon. Initialized on 07/27/23 13:34 - END OF NOTE 07/27/23 13:06 Case Management Note by Liz Garcia ATTEMPTED TO SPEAK WITH PATIENT ABOUT PLANS AT [place]. 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 PATIENT WAS SENT TO REHAB FACILITY AFTER LAST STAY AND SIGNED OUT AMA WITHIN HOURS OF ARRIVAL. AT THAT TIME PATIENT STATES HE WOULD ONLY GO TO A FACILITY THAT ALLOWED SMOKING. WHEN ASKED IF THIS IS A REQUIREMENT AGAIN "PATIENT STATED NO NECESSARILY". WE DISCUSSED [facility] AND [place] [facility]. PATIENT WANTS TO BE SURE HE GETS BACK AND FORTH TO PODIATRY APPOINTMENTS. ALMA ROSA SEES PATIENT'S AT [facility]- HE STATED TO TRY THAT FACILITY. I TRIED TO BE SURE PATIENT WAS AGREEABLE WITH A REHAB STAY- " WOULD YOU QUIT ASKING ME THE SAME FUCKING QUESTIONS" I AGAIN TRIED TO EXPLAIN THAT THERE WAS ALOT OF WORK ON BOTH THIS FACILITY AND THE RECEIVING FACILITY TO GET PATIENT ACCEPTED IF HE WAS NOT GOING TO WANT TO ACTUALLY GO AND STAY. 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 I S/W DR. ST NURSE- SHE WILL DISCUSS WITH PATIENT AND LET CASE MANAGEMENT KNOW Initialized on 07/27/23 13:06 - END OF NOTE Assessment/Plan (1) S/P transmetatarsal amputation of foot Current Visit: Yes Status: Acute Qualifiers: Laterality: right Qualified Code(s): Z89.431 - Acquired absence of right foot Assessment & Plan: -Plans to keep open with possible closure next week, dressing changes via podiatry -will start on ertapenem, follow cultures 07/25: -Pain control with oxycontin ER/ oxy IR/neurontin -Continue xarelto per podiatry 07/28 - Pt scheduled for surgery today Code(s): Z89.439 - ACQUIRED ABSENCE OF UNSPECIFIED FOOT (2) Anemia Current Visit: Yes Status: Acute Assessment & Plan: - Hgb 7.4 - monitor Code(s): D64.9 - ANEMIA, UNSPECIFIED (3) HLD (hyperlipidemia) Current Visit: Yes Status: Acute Assessment & Plan: -continue atorvastatin Code(s): E78.5 - HYPERLIPIDEMIA, UNSPECIFIED (4) PVD (peripheral vascular disease) Current Visit: Yes Status: Acute Assessment & Plan: -noted, adds complexity Code(s): I73.9 - PERIPHERAL VASCULAR DISEASE, UNSPECIFIED (5) Hypertension Current Visit: No Status: Chronic Qualifiers: Hypertension type: primary hypertension Qualified Code(s): I10 - Essential (primary) hypertension Assessment & Plan: -stable, continue home meds Code(s): I10 - ESSENTIAL (PRIMARY) HYPERTENSION (6) Type 2 diabetes mellitus Current Visit: No Status: Chronic Qualifiers: Diabetes mellitus long term care pharmacist insulin use: with long term care pharmacist use Diabetes mellitus complication status: with circulatory complication Diabetes mellitus complication detail: with peripheral angiopathy with gangrene Qualified Code(s): E11.52 - Type 2 diabetes mellitus with diabetic peripheral angiopathy with gangrene; Z79.4 - remote computer terminal operator (current) use of insulin Assessment & Plan: -Most recent A1c 04/23/23 at 8.4, - A1c 07/24 6.45- controlled -ADA diet -SSI, glargine VTE: Xarelto D/C plan: possibly tomorrow Next of Kin: Mary Deleon [phone]
[2023-07-28] MEDS ORDERED: Versed 2 MG/2 ML Injection ONE (13:54)
[2023-07-28] MEDS ORDERED: DIPRIVAN 200 MG/20 ML IV ONE ×3 (13:54→15:36)
[2023-07-28] MEDS ORDERED: SUBLIMAZE 100 MCG/2 ML ONE (13:54)
[2023-07-28] MEDS ORDERED: Sodium Chloride 0.9% 1000 ML 1,000 ML ONE (14:04)
[2023-07-28] MEDS ORDERED: Marcaine Mpf 0.5% Vial 30 Ml ONE (14:32)
[2023-07-28] MEDS ORDERED: Xylocaine 1% Vial 30 ML PF IJ ONE (14:32)
[2023-07-28] MEDS ORDERED: PHENYLEPHRINE HCL ONE (14:53)
[2023-07-28 15:25] LABS: ABO TYPING A; Antibody Screen NEGATIVE (NEGATIVE); RH TYPING POSITIVE
[2023-07-28 15:27] LABS: CROSS MATCH (PRBC) COMPATIBLE (COMPATIBLE)
--- NOTE | 2023-07-28 16:32 | XRAY ---
Indication: Partial right metatarsal resection. Intraoperative fluoroscopy provided for 19 seconds. 3 digital spot images submitted for interpretation demonstrates partial resection of all remaining metatarsal amputations. Correlate with intraoperative findings/report.
[2023-07-28] MEDS ORDERED: Sodium Chloride 0.9% 1000 ML 1,000 ML IV SCH (17:30)
[2023-07-28] MEDS: Nicoderm CQ 21 MG TOP SCH (17:44)
[2023-07-28] MEDS: HUMALOG SQ PRN (21:00)
[2023-07-28] MEDS: Lantus Insulin SQ SCH (21:00)
[2023-07-28] MEDS: ZOCOR 20MG PO SCH (21:00)
[2023-07-28 22:09] LABS: Hemoglobin 8.6 g/dL (12.5-18.0)
[2023-07-29] MEDS: Oxy-IR 5 MG PO PRN (04:03)
[2023-07-29 05:29] LABS: Absolute Neutrophil Ct (ANC) 6.02 x10^3/uL (1.4-6.9); BASOPHIL % 0.5 % (0.0-0.4); Basophil (Absolute #) 0.04 x10^3/uL (0-0.4); Eosinophil % 2.3 % (0.00-5.0); Hematocrit 27.8 % (42-50); Hemoglobin 9.1 g/dL (12.5-18.0); IMMATURE GRAN # 0.03 x10^3u/L (0.00-0.03); IMMATURE GRAN % 0.3 % (0.00-0.4); Lymphocyte (Absolute #) 1.75 x10^3/uL (1.0-4.6); Lymphocytes % 20.2 % (24.0-44.0); Mean Cell Volume 88.5 fL (78-100); Mean Corpuscular Hgb Concent. 32.7 g/dL (32-36); Mean Platelet Volume 11.2 fL (7.5-11.0); Monocyte (Absolute #) 0.61 x10^3/uL (0.0-1.3); Monocytes % 7.1 % (0.0-12.0); Neutrophil % 69.6 % (36.0-66.0); Platelet Count 415 x10^3/uL (150-450); Red Blood Count 3.14 x10^6/uL (4.1-5.6); White Blood Count 8.7 x10^3/uL (4.0-10.5)
[2023-07-29 06:10] LABS: ALBUMIN 3.4 g/dL (3.5-5.0); ALKALINE PHOSPHATASE 100 U/L (38-126); ANION GAP 10.3 MEQ/L (5-15); BLOOD UREA NITROGEN 22 mg/dL (9-20); CHLORIDE 108 mmol/L (98-107); Calcium 8.5 mg/dL (8.4-10.2); Carbon Dioxide 24 mmol/L (22-30); EST GLOMERULAR FILTRATION RATE > 60.0 ML/MIN; Glucose 83 mg/dL (74-106); Potassium 4.3 mmol/L (3.5-5.1); SGOT/AST 24 U/L (17-59); SGPT/ALT 17 U/L (0-50); SODIUM 138 mmol/L (137-145); Total Protein 6.9 g/dL (6.3-8.2)
[2023-07-29] MEDS: VENTOLIN COMMON CANISTER IH SCH (07:12)
[2023-07-29] MEDS: Spiriva 18 Mcg/Cap Inhaler IH SCH (07:12)
[2023-07-29] MEDS: PATIENT OWN MEDICATION IH SCH (07:13)
[2023-07-29] MEDS: LASIX 20 MG PO SCH (08:04)
[2023-07-29] MEDS: Neurontin PO SCH (08:04)
[2023-07-29] MEDS: XARELTO 10 MG TABLET PO SCH (08:04)
[2023-07-29] MEDS: VITAMIN D PO SCH (08:04)
[2023-07-29] MEDS: ECOTRIN 81 MG PO SCH (08:04)
[2023-07-29] MEDS: Oxycontin 10 MG ER PO SCH (08:04)
[2023-07-29] MEDS: Toprol-Xl 25MG Tablets PO SCH (08:05)
[2023-07-29] MEDS: PATIENT OWN MEDICATION PO SCH (08:06)
[2023-07-29] MEDS: Invanz *** 1 G in Sodium Chloride 100ML MINI-BAG PLUS 100 ML IV SCH (08:08)
[2023-07-29 08:17] VITALS: BP 90/56; PULSE 71; RESP 20; TEMP 97.1; O2SAT 98
[2023-07-29] MEDS: NORVASC 5 MG PO SCH (08:36)
--- NOTE | 2023-07-29 08:36 | PCM.DS ---
Discharge Summary Date of Admission: 07/24/23 08:49 Date of Discharge: 07/29/23 Admitting Physician: BÁRBARA VALDES MD Primary Care Provider: OSMAR JACKSON NP Allergies Allergies No Known Drug Allergies Allergy (Verified 07/24/23 09:14) Hospital Summary - Hospital Course Hospital Course: 07/27/23 is a 73 year old male with history of HLD, HTN, type 2 diabetes, right first toe osteomyelitis which required amputation on 03/[address] Van admitted to the hospital for right foot transmetatarsal amputation, currently being treated with Invanz. Patient has continued complaints of right lower extremity pain, states this has improved with new pain regimen rates pain at - 04/13. Plan is for closure of RLE wound Thursday with Dr. Van. 07/28/23 Pt resting in bed. He is scheduled for surgery today with podiatry. He is anxious but wants it done. His pain is well controlled at this time. He denies any further concerns at this time. 07/29/23 Pt resting in bed. He was able to have surgery yesterday with podiatry for right foot transmetatarsal amputation. Podiatry to write for OP antibiotics and pain medication. He was to go back to the [facility] yesterday but did not get back in time for ride services. He is ready to go today. He denies any concerns at this time. - Vitals & Intake/Output Vital Signs: Vital Signs Temperature 97.1 F 07/29/23 08:00 Pulse Rate 71 07/29/23 08:00 Respiratory Rate 20 07/29/23 08:00 Blood Pressure 90/56 07/29/23 08:00 O2 Sat by Pulse Oximetry 98 07/29/23 08:00 Intake & Output: Intake & Output 07/26/23 07/27/23 07/28/23 07/29/23 11:59 11:59 11:59 11:59 Intake Total 3725 018 5704 Output Total 1115 1800 1625 2150 Balance -1115 11 -9717 -965 Weight 74.5 kg - Lab Result Diagrams: 07/29/23 04:13 07/29/23 04:13 Lab Results-Last 24 Hrs: Lab Results-Last 24 Hours 07/28/23 07/28/23 07/28/23 Range/Units 14:00 14:03 15:11 WBC (4.0-10.5) x10^3/uL RBC (4.1-5.6) x10^6/uL Hgb (12.5-18.0) g/dL Hct (42-50) % MCV (78-100) fL MCH (26-32) pg MCHC (32-36) g/dL RDW (11.5-14.0) % Plt Count (150-450) x10^3/uL MPV (7.5-11.0) fL Gran % (36.0-66.0) % Immature Gran % (Auto) (0.00-0.4) % Nucleat RBC Rel Count (0.00-0.1) % Eos # (Auto) (0-0.5) x10^3/uL Immature Gran # (Auto) (0.00-0.03) x10^3u/L Absolute Lymphs (auto) (1.0-4.6) x10^3/uL Absolute Monos (auto) (0.0-1.3) x10^3/uL Absolute Nucleated RBC (0.00-0.01) x10^3u/L Lymphocytes % (24.0-44.0) % Monocytes % (0.0-12.0) % Eosinophils % (0.00-5.0) % Basophils % (0.0-0.4) % Absolute Granulocytes (1.4-6.9) x10^3/uL Basophils # (0-0.4) x10^3/uL Sodium (137-145) mmol/L Potassium (3.5-5.1) mmol/L Chloride (98-107) mmol/L Carbon Dioxide (22-30) mmol/L Anion Gap (5-15) MEQ/L BUN (9-20) mg/dL Creatinine (0.66-1.25) mg/dL Estimated GFR ML/MIN Glucose (74-106) mg/dL POC Glucometer 106 (74 to 106) mg/dL Calcium (8.4-10.2) mg/dL Total Bilirubin (0.2-1.3) mg/dL AST (17-59) U/L ALT (0-50) U/L Alkaline Phosphatase (38-126) U/L Serum Total Protein (6.3-8.2) g/dL Albumin (3.5-5.0) g/dL ABO Group A Rh Factor POSITIVE Antibody Screen NEGATIVE (NEGATIVE) Crossmatch COMPATIBLE COMPATIBLE (COMPATIBLE) 07/28/23 07/29/23 07/29/23 Range/Units 21:57 04:13 04:13 WBC 8.7 (4.0-10.5) x10^3/uL RBC 3.14 L (4.1-5.6) x10^6/uL Hgb 8.6 L 9.1 L (12.5-18.0) g/dL Hct 27.0 L 27.8 L (42-50) % MCV 88.5 (78-100) fL MCH 29.0 (26-32) pg MCHC 32.7 (32-36) g/dL RDW 15.0 H (11.5-14.0) % Plt Count 415 (150-450) x10^3/uL MPV 11.2 H (7.5-11.0) fL Gran % 69.6 H (36.0-66.0) % Immature Gran % (Auto) 0.3 (0.00-0.4) % Nucleat RBC Rel Count 0.0 (0.00-0.1) % Eos # (Auto) 0.20 (0-0.5) x10^3/uL Immature Gran # (Auto) 0.03 (0.00-0.03) x10^3u/L Absolute Lymphs (auto) 1.75 (1.0-4.6) x10^3/uL Absolute Monos (auto) 0.61 (0.0-1.3) x10^3/uL Absolute Nucleated RBC 0.00 (0.00-0.01) x10^3u/L Lymphocytes % 20.2 L (24.0-44.0) % Monocytes % 7.1 (0.0-12.0) % Eosinophils % 2.3 (0.00-5.0) % Basophils % 0.5 (0.0-0.4) % Absolute Granulocytes 6.02 (1.4-6.9) x10^3/uL Basophils # 0.04 (0-0.4) x10^3/uL Sodium 138 (137-145) mmol/L Potassium 4.3 (3.5-5.1) mmol/L Chloride 108 H (98-107) mmol/L Carbon Dioxide 24 (22-30) mmol/L Anion Gap 10.3 (5-15) MEQ/L BUN 22 H (9-20) mg/dL Creatinine 0.50 L (0.66-1.25) mg/dL Estimated GFR > 60.0 ML/MIN Glucose 83 (74-106) mg/dL POC Glucometer (74 to 106) mg/dL Calcium 8.5 (8.4-10.2) mg/dL Total Bilirubin 0.40 (0.2-1.3) mg/dL AST 24 (17-59) U/L ALT 17 (0-50) U/L Alkaline Phosphatase 100 (38-126) U/L Serum Total Protein 6.9 (6.3-8.2) g/dL Albumin 3.4 L (3.5-5.0) g/dL ABO Group Rh Factor Antibody Screen (NEGATIVE) Crossmatch (COMPATIBLE) Micro Results-Entire Visit: Microbiology 07/24/23 14:30 Gram Stain - Final Foot - Right Gram Stain Result 1 - Final Gram Stain Result 2 - Final AFB Specimen Processing - Final Acid Fast Bacilli Smear - Final Anaerobic Culture - Preliminary Anaerobic Culture Result 1 - Preliminary Tissue Culture - Preliminary Aerobic Culture Result 1 - Preliminary 07/24/23 08:49 Gram Stain - Final Foot - Right Gram Stain Result 1 - Final Gram Stain Result 2 - Final AFB Specimen Processing - Final Acid Fast Bacilli Smear - Final Anaerobic Culture - Preliminary Anaerobic Culture Result 1 - Preliminary Tissue Culture - Preliminary Aerobic Culture Result 1 - Preliminary Accuchecks Date 07/29/23 Date 07/28/23 Date 07/28/23 Date 07/28/23 Time 08:16 Time 21:00 Time 17:00 Time 11:31 - Radiology Exams Ordered Rad Exams-Entire Visit: Radiology Procedures Category Date Time Status FLUOROSCOPY UP TO 1 HR Routine Exams 07/28/23 14:26 Taken FOOT (MINIMUM 3 VIEWS) Routine Exams 07/28/23 14:26 Completed - Procedures and Test Procedures and Tests throughout Hospitalization: Therapy Orders & Screens 07/24/23 09:05 EKG STAT Comment: 07/24/23 15:27 Smoking Cessation Education ONCE Comment: Diagnosis: osteomylitis of right foot Smoking Status: Current every day smoker How long have you smoked: many years Have you smoked in the past 12 months: Yes Approximately how many cigarettes per day: 20 Do you dip or chew tobacco: No 07/24/23 16:53 Respiratory Therapy Assessment DAILY Comment: Diagnosis: osteomylitis of right foot 07/24/23 16:54 Oxygen Nasal Cannula 2 lpm Comment: Diagnosis: osteomylitis of right foot 07/25/23 19:00 Respiratory MDI Q12H Comment: Advair 2 puffs BID Diagnosis: osteomylitis of right foot Discharge Exam General Appearance: no apparent distress, alert Neurologic Exam: alert, oriented x 3, cooperative, normal mood/affect, nml cerebellar function, sensation nml, No motor deficits Eye Exam: PERRL, EOMI, eyes nml inspection Ears, Nose, Throat Exam: normal ENT inspection, pharynx normal, moist mucous membranes Neck Exam: normal inspection, non-tender, supple, full range of motion Respiratory Exam: normal breath sounds, lungs clear, No respiratory distress Cardiovascular Exam: regular rate/rhythm, normal heart sounds Gastrointestinal/Abdomen Exam: soft, No tenderness, No mass Male Genitalia Exam: deferred Rectal Exam: deferred Back Exam: normal inspection, normal range of motion, No CVA tenderness, No vertebral tenderness Extremity Exam: normal inspection, normal range of motion, amputations (RLE- wrapped) Skin Exam: normal color, warm, dry Final Diagnosis/Problem List - Final Discharge Diagnosis/Problem (1) S/P transmetatarsal amputation of foot Current Visit: Yes Status: Acute Code(s): Z89.439 - ACQUIRED ABSENCE OF UNSPECIFIED FOOT (2) Anemia Current Visit: Yes Status: Acute Code(s): D64.9 - ANEMIA, UNSPECIFIED (3) HLD (hyperlipidemia) Current Visit: Yes Status: Acute Code(s): E78.5 - HYPERLIPIDEMIA, UNSP ECIFIED (4) PVD (peripheral vascular disease) Current Visit: Yes Status: Acute Code(s): I73.9 - PERIPHERAL VASCULAR DISEASE, UNSPECIFIED (5) Hypertension Current Visit: No Status: Chronic Code(s): I10 - ESSENTIAL (PRIMARY) HYPERTENSION (6) Type 2 diabetes mellitus Current Visit: No Status: Chronic Assessment & Plan: 1) S/P transmetatarsal amputation of foot Current Visit: Yes Status: Acute Qualifiers: Laterality: right Qualified Code(s): Z89.431 - Acquired absence of right foot Assessment & Plan: -Plans to keep open with possible closure next week, dressing changes via podiatry -will start on ertapenem, follow cultures 07/25: -Pain control with oxycontin ER/ oxy IR/neurontin -Continue xarelto per podiatry 07/28 - Pt scheduled for surgery today 07/29 - D/C today with antibiotics and pain medication by podiatry Code(s): Z89.439 - ACQUIRED ABSENCE OF UNSPECIFIED FOOT (2) Anemia Current Visit: Yes Status: Acute Assessment & Plan: - Hgb 7.4 - monitor Code(s): D64.9 - ANEMIA, UNSPECIFIED (3) HLD (hyperlipidemia) Current Visit: Yes Status: Acute Assessment & Plan: -continue atorvastatin Code(s): E78.5 - HYPERLIPIDEMIA, UNSPECIFIED (4) PVD (peripheral vascular disease) Current Visit: Yes Status: Acute Assessment & Plan: -noted, adds complexity Code(s): I73.9 - PERIPHERAL VASCULAR DISEASE, UNSPECIFIED (5) Hypertension Current Visit: No Status: Chronic Qualifiers: Hypertension type: primary hypertension Qualified Code(s): I10 - Essential (primary) hypertension Assessment & Plan: -stable, continue home meds Code(s): I10 - ESSENTIAL (PRIMARY) HYPERTENSION (6) Type 2 diabetes mellitus Current Visit: No Status: Chronic Qualifiers: Diabetes mellitus extermination inspector insulin use: with longterm use Diabetes mellitus complication status: with circulatory complication Diabetes mellitus complication detail: with peripheral angiopathy with gangrene Qualified Code(s): E11.52 - Type 2 diabetes mellitus with diabetic peripheral angiopathy with gangrene; Z79.4 - half-way (current) use of insulin Assessment & Plan: -Most recent A1c 04/23/23 at 8.4, - A1c 07/24 6.45- controlled -ADA diet -SSI, glargine - Discharge Discharge Date: 07/29/23 (d/c to ECF) Disposition: Home, Self-Care Condition: Good Prescriptions: New Ertapenem Sodium [Invanz ] 1 g IV DAILY #42 iv piggy Rivaroxaban [Xarelto] 20 mg PO DAILY #30 tablet Aspirin [Ecotrin] 81 mg PO DAILY #30 tablet Continue Insulin Glargine,Hum.rec.anlog [Lantus] 18 unit SQ HS Insulin Aspart [Novolog] 6 unit SQ TIDWMEALS Tiotropium [place] [Spiriva Handihaler] 18 mcg IH DAILY Albuterol 8 gm Mdi Hfa [Ventolin Hfa MDI] 2 puff IH Q4H Amlodipine Besylate 5 mg [Norvasc 5 mg] 10 mg PO DAILY Metoprolol Succinate [Toprol Xl] 12.5 mg PO DAILY Empagliflozin [Jardiance] 25 mg PO DAILY Furosemide [Lasix] 10 mg PO DAILY Atorvastatin Calcium 20 mg PO HS Budesonide/Formoterol Fumarate [Budesonide-Formoterol 160-4.5] 2 puffs IH BID Cholecalciferol (Vitamin D3) [Vitamin D] 1,000 unit PO DAILY Varenicline Tartrate [Chantix] 1 mg PO BID Discontinued Aspirin EC 325 mg [Ecotrin 325 MG] 325 mg PO DAILY #30 Additional Instructions: ADMIT TO CARE HOME CARE 1800 BINA DIET AC/HS ACCU CHECKS PT/OT EVAL AND TREAT SEE ATTACHED MED LIST DR. ST ORDERS: NON WTBEARING TO RIGHT FOOT LEAVE DRESSING INTACT UNTIL FOLLOW UP NEXT WEEK CONTINUE ASA AND XARELTO FOR DVT PROPHYLAXIS INVANZ 1 GM IV DAILY FOR 6-[address] TO SEND IN PAIN MEDS ROUTINE PICC LINE CARE Follow up with: ALMA ROSA VAN DPM [ACTIVE STAFF] - 08/04/23 8:30 am OSMAR JACKSON NP, RN [Primary Care Provider] - Forms: Transfer Record Intermediate
--- NOTE | 2023-07-29 11:46 | XRAY ---
19 seconds of fluoroscopy was used in surgery for a partial right metatarsal resection.
--- NOTE | 2023-07-29 13:54 | OP ---
SURGERY DATE/TIME: 07/28/2023 1456 PREOPERATIVE DIAGNOSES: 1) Diabetic foot ulcer. 2) Peripheral vascular disease. 3) Right foot pain. 4) History of transmetatarsal amputation. 5) Tobacco dependence. 6) Alcohol dependence. POSTOPERATIVE DIAGNOSES: 1) Diabetic foot ulcer. 2) Peripheral vascular disease. 3) Right foot pain. 4) History of transmetatarsal amputation. 5) Tobacco dependence. 6) Alcohol dependence. PROCEDURE: Revision transmetatarsal amputation with partial metatarsal resection, intrinsic muscle flap and delayed primary closure right foot. SURGEON: Omar Loco DPM. FUNERAL PROFESSIONAL: None. ANESTHESIA: Monitored anesthesia care. HEMOSTASIS: Pressure dressing. ESTIMATED BLOOD LOSS: Approximately 75 cc. MATERIALS: 2-0 Vicryl, 3-0 Nylon, 2-0 Nylon. INJECTABLES: 30 cc of 1:1 mixture of 1% lidocaine plain and 0.5% bupivacaine plain injected in an ankle block-type fashion. 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 The patient does have a long-standing history of nonhealing ulceration. Recently did have successful vascular intervention with repair of the posterior tibial only getting an adequate blood flow and a majority of his dominant was now present giving him the best chances for salvage. The patient has been consulted and discussed that the risks going forward with this procedure are possibly surgical wound dehiscence which is a high probability in these cases which will need to be continuously managed as well as possible failure for surgical intervention and need for further surgical intervention at a later date. No guarantees were provided as to the outcome. The patient has been made aware that cigarette cessation has been advised strongly. The patient is trying however has been unsuccessful in doing so up to this point. He is also dependent on alcohol and has been unsuccessful at curbing this habit as well. These factors may delay the healing or provide for failure of surgical intervention. It is at this time we decided to proceed. DESCRIPTION OF PROCEDURE AND FINDINGS: The patient is brought into the OR and placed and placed on the OR table in the supine position. At this time MAC anesthesia was administered until the patient was sedated. The right lower extremity was prepped and draped in typical sterile fashion and lowered onto the surgical field. At this time 30 cc of a 1:1 mixture block of 1% lidocaine plain and 0.5% bupivacaine plain was injected in an ankle block-type fashion blocking the extremity. Following this the stitches were removed utilizing a 15 blade and a pickup. The wound was inspected where there was significant amount of hematoma present within the surgical site. At this time the faulkner was utilized to elevate the full thickness flaps off of the base of the metatarsals. From that standpoint, the 31 mm sagittal saw was used to bevel the remaining metatarsals from distal dorsal to proximal plantar orientation and beveling the dorsal aspects of them to create as little prominence at the top of the resection site. These were handed off the field for clean margins. From that standpoint copious amounts of sterile saline as well as 1,000 ml Bactisure bag was utilized to flush the surgical site. Following this the intrinsic muscle flap that was harvested from previous surgery was freed up from its soft tissue attachments, elevated and sutured to the periosteum of the dorsal aspect of the metatarsals this held without significant issue. Some aspects on the lateral were incorporated with the adipofascial dorsalis pedis artery flap making sure to maintain full thickness of the flap. Following this the skin margins were assessed for viability. The dorsal aspect of the surgical site was then resected and the plantar aspect of the flap was relied on to be the sole weight bearing surface. From that standpoint, layered closure took place consisting of deep sutures with 2-0 Vicryl in a simple buried interrupted-type fashion and then 3-0 and 2-0 Nylon in a vertical mattress-type fashion. Following this, the leg was cleansed and a dressing consisting of Betadine, Adaptic, 4x4, Kerlix, ABD and VICTOR MANUEL was applied to the patient's right lower extremity. The patient then was reversed from anesthesia and returned to the postoperative anesthesia care unit with vital signs stable and vascular status intact. The patient handled the anesthesia as well as the procedure without significant complication. Postoperative orders as indicated in the patient's discharge chart.
== END 2023-07-29 11:08 | DRG 475 ==
LOC: EDSTATUS 08:48 → MED SURG 08:49 → UNDOADMIN 08:49 → EDSTATUS 09:04
PROVIDERS: ADMIT Internal Medicine; ATTEND Podiatrist Foot & Ankle Surgery
PROC: 0Y6M0Z9 Detachment at Right Foot, Partial 1st Ray, Open Approach (ICD-10-PCS; principal; 2023-07-24)
PROC: 0Y6M0ZB Detachment at Right Foot, Partial 2nd Ray, Open Approach (ICD-10-PCS; 2023-07-24)
PROC: 0Y6M0ZC Detachment at Right Foot, Partial 3rd Ray, Open Approach (ICD-10-PCS; 2023-07-24)
PROC: 0Y6M0ZD Detachment at Right Foot, Partial 4th Ray, Open Approach (ICD-10-PCS; 2023-07-24)
PROC: 0Y6M0ZF Detachment at Right Foot, Partial 5th Ray, Open Approach (ICD-10-PCS; 2023-07-24)
PROC: 0QCN0ZZ Extirpation of Matter from Right Metatarsal, Open Approach (ICD-10-PCS; 2023-07-29)
PROC: 0KR Muscles, Replacement (ICD-10-PCS; 2023-07-29)
PROC: 0YQM0ZZ Repair Right Foot, Open Approach (ICD-10-PCS; 2023-07-29)
DX: M86.9 Osteomyelitis, unspecified (principal); E11.52 Type 2 diabetes mellitus with diabetic peripheral angiopathy with gangrene; E11.621 Type 2 diabetes mellitus with foot ulcer; D64.9 Anemia, unspecified; E78.5 Hyperlipidemia, unspecified; I73.9 Peripheral vascular disease, unspecified; I10 Essential (primary) hypertension; Z79.4 Long term (current) use of insulin; Z79.899 Other long term (current) drug therapy; F17.200 Nicotine dependence, unspecified, uncomplicated; F10.20 Alcohol dependence, uncomplicated; Z91.199 Patient's noncompliance with other medical treatment and regimen due to unspecified reason; Z85.038 Personal history of other malignant neoplasm of large intestine
CPT/HCPCS: 13160; 15738; 28122; 28805; 29580; 36415; 36430; 73630; 76000; 76937; 80053; 82947; 83036; 85014; 85018; 85025; 85027; 86850; 86900; 86901; 86922; 87046; 87070; 87075; 87116; 87205; 87206; 93005; 94640; 94760; 96365; 99024; 99211; 99213; P9016; Q3014; A6260; J1335; J1610; J1642; J1817; J2001; J2250; J2371; J2704; J3010; A9270-GY

== ENCOUNTER 2023-08-22 12:21 | Emergency (ER) | payer MEDICARE ==
[2023-08-22 12:45] VITALS: TEMP 96.8
--- NOTE | 2023-08-22 12:49 | ERPHSYRPT ---
- History of Present Illness Time Seen by Provider: 08/22/23 12:46 Source: patient Exam Limitations: no limitations Patient Subjective Stated Complaint: C/O left knee pain following a fall at home. Patient fell forward off of the toilet. Patient states he twisted his knee when attempting to get up after the fall. Denies any other pain or injury. Triage Nursing Assessment: Patient brought into ER by ambulance. No SOB. He is alert and oriented. Bandaid present to left knee; he states he "skinned it" when crawling around on the floor to get to a phone. Band aid was not removed at this time. Pedal pulse checked by Dr. Felder and is present. Scar to knee from old, previous surgery. Patient unable to lift LLE up off of bed indepedently during exam. Skin tone to LLE is normal. Physician History: Patient is a 73-year-old white male who recently reviewed released from [facility] for foot problems today was attempting to sit down on the commode fell forward and then had to crawl on his knees to get to the phone. He cannot lift his left leg and he has tenderness over the patella and the patellar tendon. When lifting the thigh the knee does flex through gravity but he cannot move it to extend it at all. Method of Injury: fell, twisted Occurred: just prior to arrival Lower Extremities Pain: knee: left Allergies/Adverse Reactions: No Known Drug Allergies Allergy (Verified 08/22/23 12:28) Home Medications: Albuterol 8 gm Mdi Hfa [Ventolin Hfa MDI] 2 puff IH Q4H 03/18/23 [History] Amlodipine Besylate 5 mg [Norvasc 5 mg] 10 mg PO DAILY 03/18/23 [History] Atorvastatin Calcium 20 mg PO HS 03/18/23 [History] Furosemide [Lasix] 20 mg PO DAILY 03/18/23 [History] Insulin Aspart [Novolog] 6 unit SQ TIDWMEALS 03/18/23 [History] Insulin Glargine,Hum.rec.anlog [Lantus] 18 unit SQ HS 03/18/23 [History] Cholecalciferol (Vitamin D3) [Vitamin D] 1,000 unit PO DAILY 05/05/23 [History] Varenicline Tartrate [Chantix] 1 mg PO BID 07/25/23 [History] Cilostazol 100 mg [Pletal 100 MG] 1 tab PO DAILY 08/22/23 [History] Ertugliflozin Pidolate [Steglatro] 1 tab PO DAILY 08/22/23 [History] Ferrous Sulfate 325 mg [Feosol 325 mg] 1 tab PO DAILY 08/22/23 [History] Fluticasone Propion/Salmeterol [Fluticasone-Salmeterol 250-50] 1 puff PO DAILY 08/22/23 [History] Hydrocodone/Acetaminophen [Hydrocodone-Acetamin 10-325 mg] 1 tab PO TID PRN 08/22/23 [History] Metoprolol Tartrate 1 tab PO DAILY 08/22/23 [History] Potassium Chloride 1 cap PO DAILY 08/22/23 [History] Umeclidinium [place] [Incruse Ellipta] 1 puff PO DAILY 08/22/23 [History] Hx Tetanus, Diphtheria Vaccination/Date Given: Yes Hx Influenza Vaccination/Date Given: Yes Hx Pneumococcal Vaccination/Date Given: Yes Immunizations Up to Date: Yes Travel Risk - International Travel Have you traveled outside of the country in past 3 weeks: No - Coronavirus Screening Are you exhibiting any of the following symptoms?: No Close contact with a COVID-19 positive Pt in past 14-21 Days: No - Vaccine Status Have you recieved a Covid-19 vaccination: Yes Steward/Stewardess Dining Room: Unknown - Vaccination Dates Dates if Unknown: ? - Review of Systems Constitutional: No Fever, No Chills Eyes: No Symptoms Ears, Nose, & Throat: No Symptoms Respiratory: No Cough, No Dyspnea Cardiac: No Chest Pain, No Edema, No Syncope Abdominal/Gastrointestinal: No Abdominal Pain, No Nausea, No Vomiting, No Diarrhea Genitourinary Symptoms: No Dysuria Musculoskeletal: Injury, Joint Pain, No Back Pain, No Neck Pain Skin: No Rash Neurological: No Dizziness, No Focal Weakness, No Sensory Changes Psychological: No Symptoms Endocrine: No Symptoms All Other Systems: Reviewed and Negative - Past Medical History Pertinent Past Medical History: Yes Neurological History: Peripheral Neuropathy ENT History: Cataracts Cardiac History: Deep Vein Thrombosis, High Cholesterol, Hypertension, Peripheral Vascular Disease Respiratory History: COPD Endocrine Medical History: Diabetes Type II Musculoskeletal History: No Pertinent History GI Medical History: Colorectal Cancer History: No Pertinent History Psycho-Social History: No Pertinent History Male Reproductive Disorders: No Pertinent History Other Medical History: gangrene, anemia - Past Surgical History Past Surgical History: Yes Neuro Surgical History: No Pertinent History Cardiac: No Pertinent History Respiratory: No Pertinent History Gastrointestinal: Colon Resection Genitourinary: No Pertinent History Musculoskeletal: Amputation, Orthopedic Surgery Male Surgical History: No Pertinent History Other Surgical History: second digit on left foot amputated, left knee, colon cancer surgery, right ear, right great toe amputationm bypass to right leg - Social History Smoking Status: Current every day smoker How long have you smoked: 60+ years Exposure to second hand smoke: No Drug Use: none Patient Lives Alone: Yes Significant Family History: diabetes - Nursing Vital Signs Nursing Vital Signs: Initial Vital Signs Temperature 96.8 F 08/22/23 12:29 Pulse Rate 98 H 08/22/23 12:29 Blood Pressure 126/68 08/22/23 12:29 O2 Sat by Pulse Oximetry 95 08/22/23 12:29 Pain Scale Pain Intensity 7 - Physical Exam General Appearance: alert Eyes, Ears, Nose, Throat Exam: moist mucous membranes Neck Exam: non-tender, supple Cardiovascular/Respiratory Exam: chest non-tender, normal breath sounds, regular rate/rhythm, no respiratory distress Gastrointestinal/Abdominal Exam: non-tender, guarding Back Exam: normal inspection, No vertebral tenderness Hips Exam: bilateral: non-tender, normal inspection, normal range of motion Legs Exam: bilateral leg: non-tender, normal inspection, normal range of motion Knees Exam: left knee: bone tenderness, pain, soft tissue tenderness, other (Unable to extend the left lower extremity at the knee.) Ankle Exam: bilateral ankle: non-tender, normal inspection, normal range of motion Foot Exam: bilateral foot: non-tender, normal inspection, normal range of motion Neuro/Tendon Exam: normal sensation, normal motor functions Mental Status Exam: alert, oriented x 3, cooperative Skin Exam: normal color, warm, dry SpO2 Interpretation: normal SpO2: 95 O2 Delivery: Room Air - CT Exams Left Lower Extremity CT Interpretation: Tele-radiologist Report Ordered Tests: Active Orders 24 hr Category Date Time Status LOWER EXTREMITY WO CONTRAST [CT] Stat Exams 08/22/23 12:29 Completed - Progress Progress: unchanged Medical Desision Making - Independent Historian Additional History obtained from: Spouse - Diagnostic Testing Radiological Interpretation: Reviewed by me, Teleradiologist Report - Risk of complications Minimal Risk: Minimal risk of morbidity - Departure Departure Disposition: Home Clinical Impression: Left patella fracture Condition: Stable Critical Care Time: No Referrals: [facility] [LOCATION] - Follow up/PCP as directed Instructions: Patella Fracture (DC) Prescriptions: Hydrocodone/Acetaminophen [Hydrocodone-Acetamin 5-325 mg] 1 tab PO Q6HPRN PRN 3 Days #12 tablet MDD 4 PRN Reason: Pain
[2023-08-22 13:06] VITALS: PULSE 95
--- NOTE | 2023-08-22 15:03 | XRAY ---
CLINICAL HISTORY:fall knee injury COMPARISON:None. TECHNIQUE:CT scan axial, coronal sagittal images of the left knee were obtained without IV contrast. FINDINGS: Chronic traumatic changes in the left patella in keeping with the history of previous patellar fracture. Ossified densities adjacent to the medial and lateral aspects of the patella represent sequelae of prior bony injury. Faint hairline lucency seen in the anterior aspect of the patella, probable micro trabecular injury [Series 3; image #[id number]]. Mild knee joint effusion noted. Soft tissue swelling noted in the anterior aspect of the patella showing subcutaneous edema. Reduced bone density. Mild osteoarthritic changes in left knee. No lytic or sclerotic lesions identified. Arteriosclerotic calcification of the vessels seen. IMPRESSION: 1. Chronic traumatic changes in left patella in keeping with the history of previous patellar fracture. Ossified densities adjacent to the medial and lateral aspects of the patella represent sequelae of prior bony injury. 2. Faint hairline lucency seen in the anterior aspect of the patella could suggest micro trabecular injury. MRI is recommended for further evaluation. 3. Mild Osteoarthritic changes in the left knee joint. 4. Mild knee joint effusion. Electronically Signed by: Kee Aponte MD. (08/22/2023 14:03:25 [employer] TRAINING INSTRUCTOR)
[2023-08-22 15:11] VITALS: BP 119/58
[2023-08-22 15:18] VITALS: O2SAT 95
[2023-08-22] MEDS ORDERED: Hydromorphone 1 mg/ml Injection IV ONE (15:20)
[2023-08-22] MEDS ORDERED: Hydromorphone 1 mg/ml Injection ONE (15:21)
== END 2023-08-22 15:44 | disposition home or self-care (01) ==
LOC: ED 12:21
DX: S82.002A Unspecified fracture of left patella, initial encounter for closed fracture (principal); W18.30XA Fall on same level, unspecified, initial encounter; Y92.002 Bathroom of unspecified non-institutional (private) residence as the place of occurrence of the external cause; E78.5 Hyperlipidemia, unspecified; I10 Essential (primary) hypertension; E11.42 Type 2 diabetes mellitus with diabetic polyneuropathy; Z79.4 Long term (current) use of insulin; Z79.02 Long term (current) use of antithrombotics/antiplatelets; Z79.891 Long term (current) use of opiate analgesic; Z79.899 Other long term (current) drug therapy; Z72.0 Tobacco use
CPT/HCPCS: 73700; 96374; 99283; J1170; L1830